=== PATIENT | male | born 1990 | race Caucasian/White ===

== ENCOUNTER 2019-03-20 11:12 | Inpatient (IN) | payer MEDICAID, OTHER ==
[~2019-03-20] VITALS: Ht 182.9 cm; Wt 81.0 kg
[2019-03-20] MEDS ORDERED: normal saline 1000ML IV soln IVB ONE (11:50)
[2019-03-20] MEDS ORDERED: magnesium oxide 400mg tablet PO ONE (11:50)
[2019-03-20] MEDS ORDERED: ondansetron/PF 4mg/2ml inj IV ONE ×2 (11:50→12:00)
[2019-03-20] MEDS ORDERED: thiamine 100mg tablet PO ONE (11:50)
[2019-03-20] MEDS ORDERED: phenobarbital inj 260 MG in normal saline 100ml IV soln 99 ML IV STA (11:50)
[2019-03-20] MEDS ORDERED: pantoprazole 40 MG vial IV ONE (12:00)
[2019-03-20] MEDS ORDERED: famotidine/PF 10 mg/ml inj IV ONE (12:00)
[2019-03-20] MEDS ORDERED: octreotide inj. 1,250 MCG in normal saline 250ml IV soln 250 ML IV ONE (12:00)
[2019-03-20] MEDS ORDERED: normal saline 1000ML IV soln IV ONE (12:00)
[2019-03-20] MEDS ORDERED: NO HOME MEDS (12:02)
[2019-03-20 12:43] LABS: ALANINE AMINOTRANSFERASE 60 U/L (12-78); ALBUMIN 4.1 G/DL (3.4-5.0); ALKALINE PHOSPHATASE 46 IU/L (46-116); ANION GAP 29 (8-16); ASPARTATE AMINO TRANSFERASE 163 U/L (10-37); BILIRUBIN,TOTAL 0.8 MG/DL (0.1-1.0); BLOOD UREA NITROGEN 22 MG/DL (7-18); BUN/CREATININE RATIO 16.1 (5.4-32.0); CALCIUM 9.3 MG/DL (8.5-10.1); CHLORIDE 94 MMOL/L (99-107); CREATININE 1.37 MG/DL (0.60-1.10); ETHANOL < 0.010 GM/DL (0.0-0.010); GLUCOSE 98 MG/DL (70-104); MAGNESIUM 1.6 MG/DL (1.5-2.4); POTASSIUM 4.1 MMOL/L (3.5-5.1); SODIUM 133 MMOL/L (135-145); TOTAL PROTEIN 8.1 G/DL (6.4-8.2); eGFR 61 ML/MIN
[2019-03-20 12:48] LABS: BASOPHILS # (AUTO) 0.1 X10'3 (0-0.2); BASOPHILS % (AUTO) 0.6 % (0-1); EOSINOPHILS % (AUTO) 0 % (0-6); HEMATOCRIT 31.8 % (42.0-52.0); HEMOGLOBIN 10.7 g/dl (14.0-17.9); LYMPHOCYTES # (AUTO) 0.5 X10'3 (1.1-4.8); LYMPHOCYTES % (AUTO) 3.3 % (21-51); MEAN CORPUSCULAR HGB CONC 33.6 g/dL (33.0-36.5); MEAN CORPUSCULAR VOLUME 110.2 FL (78-98); MEAN PLATELET VOLUME 8.1 FL (7.4-10.4); MONOCYTES # (AUTO) 1.1 X10'3 (0-0.9); MONOCYTES % (AUTO) 7.4 % (2-12); NEUTROPHILS # (AUTO) 12.7 X10'3 (1.8-7.7); NEUTROPHILS % (AUTO) 88.7 % (42-75); PLATELET COUNT 196 X10'3 (140-440); RED BLOOD COUNT 2.88 X10'6 (4.70-6.10); RED CELL DISTRIBUTION WIDTH 13.9 % (11.5-14.5); WHITE BLOOD COUNT 14.3 X10'3 (4.5-11.0)
[2019-03-20 12:54] LABS: PARTIAL THROMBOPLASTIN TIME 27 SECONDS (22-32)
[2019-03-20 13:01] LABS: TOTAL CARBON DIOXIDE 9.6 MMOL/L (24-32)
[2019-03-20 13:45] LABS: ANISOCYTOSIS 1+; PLATELET ESTIMATE NORMAL
[2019-03-20 13:46] LABS: LARGE PLATELETS FEW; POLYCHROMASIA 1+
--- NOTE | 2019-03-20 14:02 | NUR ---
patient on bed awak,vss.
[2019-03-20] MEDS ORDERED: phenobarbital inj 130 MG in normal saline 100ml IV soln 99 ML IV PRN ×2 (14:20→14:30)
[2019-03-20] MEDS ORDERED: ondansetron/PF 4mg/2ml inj IV PRN (14:45)
[2019-03-20] MEDS ORDERED: morphine 2 MG/ML inj. syringe IV PRN (14:45)
[2019-03-20] MEDS ORDERED: haloperidol 5mg tablet PO PRN (14:45)
[2019-03-20] MEDS ORDERED: magnesium 2GM in 50ml NS 50 ML IV PRN (14:45)
[2019-03-20] MEDS ORDERED: acetaminophen 325mg tablet PO PRN ×2 (14:45)
[2019-03-20] MEDS ORDERED: magnesium 4gm in 100ml NS 100 ML IV PRN (14:45)
[2019-03-20] MEDS ORDERED: potassium Cl 20 mEq SR tablet PO PRN (14:45)
[2019-03-20] MEDS ORDERED: haloperidol lactate 5mg/ml inj IM PRN (14:45)
[2019-03-20] MEDS ORDERED: potassium CL 10mEq/100ml bag 100 ML IV PRN ×2 (14:45)
--- NOTE | 2019-03-20 14:53 | NUR ---
Nik/pharmacist that patient is being admitted.
[2019-03-20] MEDS: normal saline 1000ml 1,000 ML IV SCH (15:15)
[2019-03-20] MEDS ORDERED: pantoprazole 40MG/NS 100ML BAG 100 ML IV SCH (16:00)
--- NOTE | 2019-03-20 16:22 | NUR ---
Attempted to phone report, Receiving RN unavailable and will phone the ED to receive report.
--- NOTE | 2019-03-20 16:23 | NUR ---
RN from the GI lab phoned and reports the endoscopy will be completed in the morning. PCU to be updated about the plan of care.
--- NOTE | 2019-03-20 16:30 | NUR ---
Patient in room PCU 3014. I have received report from Lisa IRVIN and had the opportunity to ask questions and assume patient care.
[2019-03-20] MEDS: pantoprazole 40MG/NS 100ML BAG 100 ML IV SCH ×2 (16:33→22:00)
[2019-03-20] MEDS: LORazepam 2 mg/ml vial IV PRN ×4 (17:43→21:54)
[2019-03-20 18:00] VITALS: BP 117/65
--- NOTE | 2019-03-20 18:00 | NUR ---
Patient in room PCU 3014. I have received report from Bryanna IRVIN and had the opportunity to ask questions and assume patient care. Nurse stated that the patient has becoming increasingly confused, at this moment patient is confused of where he is stating "I'm at a cafe" and is reminded to not pull on IVs.
--- NOTE | 2019-03-20 18:29 | NUR ---
Problems reprioritized. Patient report given, questions answered & plan of care reviewed with Daxa IRVIN.
[2019-03-20 22:00] VITALS: BP 105/52
--- NOTE | 2019-03-20 23:12 | NUR ---
RESTRAINTS Patient became increasingly agitated and confused at 1900, pulled out all IVs, but was able to calm the patient down to have him stay in bed; MD Bowling notified and sitter order obtained. At 2014 patient had escalated to pushing, kicking, and trying to run out of the room, was not able to talk him down due to more confusion stating "you're in my house, I need to go see my aunt"; Dash was notified and restraints order was obtained. Ativan was given twice and Haldol PO once before patient was calm. IV medication (Sandostatin, Normal saline, and Protonix) was held till patient was calm and able to put in new IVs, restarted at 2200. Will continue to monitor patient.
[2019-03-21] VITALS (15 sets, daily range): BP systolic 89–138; BP diastolic 41–90
[2019-03-21] MEDS: pantoprazole 40MG/NS 100ML BAG 100 ML IV SCH ×2 (01:23→09:02)
[2019-03-21] MEDS: normal saline 1000ml 1,000 ML IV SCH ×3 (01:24→20:43)
--- NOTE | 2019-03-21 05:31 | NUR ---
Patient is still on 3 point restraints, have been checked every two hours, but patient is still confused and wanting to grab and pull on anything he can get his hands on. Very sensitive to touch. Brown/Red stool on my shift. Condom Cath has been placed due to his confusion. NPO all night. Will continue to monitor.
--- NOTE | 2019-03-21 05:58 | NUR ---
Medication Reconciliation Needs to be done. Patient at this time too confused.
[2019-03-21] MEDS: LORazepam 2 mg/ml vial IV PRN ×5 (06:13→23:34)
[2019-03-21] MEDS ORDERED: fentaNYL/PF 50MCG/1 ML 2ML syringe ONE (06:15)
[2019-03-21] MEDS ORDERED: LIDOcaine Viscous 15ml cup ONE (06:15)
[2019-03-21] MEDS ORDERED: MIDAZolam 5mg/5ml vial ONE (06:15)
--- NOTE | 2019-03-21 06:43 | NUR ---
Problems reprioritized. Patient report given, questions answered & plan of care reviewed with Edwina IRVIN.
--- NOTE | 2019-03-21 06:51 | NUR ---
Page to Azeem PURVIS regarding AM lab result: Reji Oreilly: AM lab will be rechecked as Lab believes the results wrong due to dilution. Pt. is currently at endoscopy. Lab will be called for a redraw when he returns to the nursing floor. H/H 6.4/18.6. will be double checked.
--- NOTE | 2019-03-21 06:52 | NUR ---
Patient in room PCU 3014. I have received report from Daxa IRVIN and had the opportunity to ask questions and assume patient care.
[2019-03-21 07:34] LABS: BASOPHILS % (AUTO) 0.6 % (0-1); EOSINOPHILS # (AUTO) 0.1 X10'3 (0-0.9); EOSINOPHILS % (AUTO) 1.8 % (0-6); LYMPHOCYTES # (AUTO) 0.4 X10'3 (1.1-4.8); MEAN CORPUSCULAR HEMOGLOBIN 40.3 PG (27.0-31.0); MEAN CORPUSCULAR VOLUME 110.3 FL (78-98); MEAN PLATELET VOLUME 7.5 FL (7.4-10.4); MONOCYTES # (AUTO) 0.7 X10'3 (0-0.9); MONOCYTES % (AUTO) 12.5 % (2-12); NEUTROPHILS # (AUTO) 4.2 X10'3 (1.8-7.7); NEUTROPHILS % (AUTO) 77.1 % (42-75); PLATELET COUNT 137 X10'3 (140-440); RED BLOOD COUNT 1.66 X10'6 (4.70-6.10); RED CELL DISTRIBUTION WIDTH 13.8 % (11.5-14.5); WHITE BLOOD COUNT 5.4 X10'3 (4.5-11.0)
[2019-03-21 07:55] LABS: ALANINE AMINOTRANSFERASE 40 U/L (12-78); ALBUMIN 2.8 G/DL (3.4-5.0); ALKALINE PHOSPHATASE 29 IU/L (46-116); ANION GAP 12 (8-16); ASPARTATE AMINO TRANSFERASE 128 U/L (10-37); BILIRUBIN,TOTAL 0.5 MG/DL (0.1-1.0); BLOOD UREA NITROGEN 17 MG/DL (7-18); BUN/CREATININE RATIO 19.5 (5.4-32.0); CHLORIDE 104 MMOL/L (99-107); CREATININE 0.87 MG/DL (0.60-1.10); GLUCOSE 109 MG/DL (70-104); MAGNESIUM 1.6 MG/DL (1.5-2.4); SODIUM 139 MMOL/L (135-145); TOTAL CARBON DIOXIDE 23.1 MMOL/L (24-32); TOTAL PROTEIN 5.7 G/DL (6.4-8.2); eGFR > 90 ML/MIN
[2019-03-21] MEDS: K and/or MAG REPLACEMENT MC SCH ×2 (08:00→10:19)
[2019-03-21 08:06] LABS: HEMATOCRIT 18.3 % (42.0-52.0); HEMOGLOBIN 6.7 g/dl (14.0-17.9)
--- NOTE | 2019-03-21 08:14 | NUR ---
Critical H/H Azeem PURVIS PAGER ID: [phone] MESSAGE: Reji Denilson: [id number] Critical Labs H/H 6.7/18.3 This is the re-check Thank You Edwina IRVIN [phone]
[2019-03-21 08:24] LABS: MEAN CORPUSCULAR HGB CONC 34.5 g/dL (33.0-36.5)
[2019-03-21] MEDS: atenolol 25mg tablet PO SCH (10:24)
--- NOTE | 2019-03-21 11:38 | NUR ---
Protonix and Sandostatin IV: are not compatable for Y port administration. Will continue after Blood Transfusion completes.
[2019-03-21 14:14] LABS: HEMATOCRIT 22.7 % (42.0-52.0); HEMOGLOBIN 7.9 g/dl (14.0-17.9); MEAN CORPUSCULAR HEMOGLOBIN 36.2 PG (27.0-31.0); MEAN CORPUSCULAR HGB CONC 34.9 g/dL (33.0-36.5); MEAN CORPUSCULAR VOLUME 103.8 FL (78-98); MEAN PLATELET VOLUME 7.7 FL (7.4-10.4); PLATELET COUNT 148 X10'3 (140-440); RED BLOOD COUNT 2.19 X10'6 (4.70-6.10); RED CELL DISTRIBUTION WIDTH 16.2 % (11.5-14.5)
[2019-03-21] MEDS: MVI, adult No.4 with vit. K 10 ML in dextrose 5% water 500ml 500 ML IV SCH ×2 (17:19)
[2019-03-21] MEDS: thiamine inj. 100 MG, folic acid inj. 2 MG in normal saline 100ml IV soln 100 ML IV SCH (17:35)
--- NOTE | 2019-03-21 17:55 | NUR ---
Pt is alert and cooperative with nursing, he has some confusion but is asking for assistance appropriately. Skin is warm and moist, slight tremor is detected, Banana Bag is started 174. IV Ativan 2mg for restlessness, Sitter at bedside, restraints are released at 1400. Voids to urinal and ambulates to bathroom with assistance.
--- NOTE | 2019-03-21 18:00 | NUR ---
Patient in room PCU 3014. I have received report from Edwina IRVIN and had the opportunity to ask questions and assume patient care.
--- NOTE | 2019-03-21 18:26 | NUR ---
Problems reprioritized. Patient report given, questions answered & plan of care reviewed with Daxa IRVIN .
[2019-03-21] MEDS: pantoprazole 40mg Tablet.DR PO SCH (19:07)
[2019-03-21] MEDS: nystatin/triamcinolone cream 15gm TP SCH (20:00)
[2019-03-22 02:00] VITALS: BP 103/73
[2019-03-22] MEDS: LORazepam 2 mg/ml vial IV PRN ×2 (02:19→13:17)
--- NOTE | 2019-03-22 04:37 | NUR ---
END NOC NOTE Patient has been in and out of confusion tonight but has been more reasonable than the previous night. Patient has been able to tell me when he feels agitated and needing Ativan. Patient's confusion has been more childlike tonight by hiding under the covers and acting shy; when patient is alert he knows he is in the hospital and why he is here. Has not attempted to pull any IVs tonight, has voiced he would like to walk around the unit at some point, able to ambulate to the bathroom, and able to voice his needs this shift. Will continue to monitor.
[2019-03-22 05:40] LABS: BASOPHILS % (AUTO) 0.4 % (0-1); EOSINOPHILS # (AUTO) 0.1 X10'3 (0-0.9); HEMOGLOBIN 7.6 g/dl (14.0-17.9); LYMPHOCYTES # (AUTO) 0.6 X10'3 (1.1-4.8); LYMPHOCYTES % (AUTO) 7.1 % (21-51); MEAN CORPUSCULAR HEMOGLOBIN 36.9 PG (27.0-31.0); MEAN CORPUSCULAR HGB CONC 35.2 g/dL (33.0-36.5); MEAN CORPUSCULAR VOLUME 104.8 FL (78-98); MEAN PLATELET VOLUME 7.6 FL (7.4-10.4); NEUTROPHILS # (AUTO) 6.1 X10'3 (1.8-7.7); NEUTROPHILS % (AUTO) 78.5 % (42-75); PLATELET COUNT 152 X10'3 (140-440); RED BLOOD COUNT 2.05 X10'6 (4.70-6.10); RED CELL DISTRIBUTION WIDTH 16.5 % (11.5-14.5); WHITE BLOOD COUNT 7.8 X10'3 (4.5-11.0)
[2019-03-22 05:47] LABS: HEMATOCRIT 21.5 % (42.0-52.0)
--- NOTE | 2019-03-22 05:52 | NUR ---
CRITICAL HEMATOCRIT HCT 21.5 MD Bowling notified and stated to notified daytime provider. Will continue to monitor.
[2019-03-22 06:00] VITALS: BP 132/59
--- NOTE | 2019-03-22 06:00 | NUR ---
Patient in room PCU 3014. I have received report from Tram IRVIN and had the opportunity to ask questions and assume patient care.
[2019-03-22 06:13] LABS: ALANINE AMINOTRANSFERASE 35 U/L (12-78); ALBUMIN 2.8 G/DL (3.4-5.0); ALBUMIN/GLOBULIN RATIO 0.9 (1.1-1.5); ALKALINE PHOSPHATASE 41 IU/L (46-116); ANION GAP 10 (8-16); ASPARTATE AMINO TRANSFERASE 90 U/L (10-37); BILIRUBIN,TOTAL 0.5 MG/DL (0.1-1.0); BLOOD UREA NITROGEN 6 MG/DL (7-18); BUN/CREATININE RATIO 8.6 (5.4-32.0); CHLORIDE 102 MMOL/L (99-107); GLUCOSE 97 MG/DL (70-104); MAGNESIUM 1.4 MG/DL (1.5-2.4); POTASSIUM 3.2 MMOL/L (3.5-5.1); SODIUM 138 MMOL/L (135-145); TOTAL CARBON DIOXIDE 25.9 MMOL/L (24-32); TOTAL PROTEIN 5.8 G/DL (6.4-8.2); eGFR > 90 ML/MIN
--- NOTE | 2019-03-22 06:42 | NUR ---
Problems reprioritized. Patient report given, questions answered & plan of care reviewed with Isela IRVIN. Addendum: 03/22/19 at 0644 by Tram Ramírez RN with Nusrat IRVIN
--- NOTE | 2019-03-22 07:07 | NUR ---
PAGER ID: [phone] MESSAGE: [id number] Wan Oreilly. Lab today HGB/HCT [place] [id number]
[2019-03-22] MEDS: potassium Cl 20 mEq SR tablet PO PRN ×3 (07:43→19:06)
[2019-03-22] MEDS: pantoprazole 40mg Tablet.DR PO SCH ×2 (07:43→19:05)
[2019-03-22] MEDS: MVI, adult No.4 with vit. K 10 ML in dextrose 5% water 500ml 500 ML IV SCH ×2 (07:43)
[2019-03-22] MEDS: thiamine inj. 100 MG, folic acid inj. 2 MG in normal saline 100ml IV soln 100 ML IV SCH (07:43)
[2019-03-22] MEDS: magnesium Cl slow-release 64mg tablet PO PRN ×2 (07:44→19:06)
[2019-03-22] MEDS: atenolol 25mg tablet PO SCH (07:44)
[2019-03-22] MEDS: nystatin/triamcinolone cream 15gm TP SCH ×2 (08:00→19:06)
[2019-03-22 11:00] VITALS: BP 113/72
[2019-03-22] MEDS ORDERED: LORazepam 1 MG tablet PO PRN (14:45)
[2019-03-22 15:00] VITALS: BP 118/73
[2019-03-22 15:33] LABS: HEMOGLOBIN 7.6 g/dl (14.0-17.9); MEAN CORPUSCULAR HEMOGLOBIN 36.1 PG (27.0-31.0); MEAN CORPUSCULAR HGB CONC 34.7 g/dL (33.0-36.5); PLATELET COUNT 172 X10'3 (140-440); RED BLOOD COUNT 2.11 X10'6 (4.70-6.10); RED CELL DISTRIBUTION WIDTH 16.4 % (11.5-14.5); WHITE BLOOD COUNT 7.2 X10'3 (4.5-11.0)
[2019-03-22 15:40] LABS: HEMATOCRIT 21.9 % (42.0-52.0)
[2019-03-22] MEDS: HYDROcodone/acetaminophen 5mg/325mg tablet PO PRN (16:11)
[2019-03-22 18:00] VITALS: BP 114/72
--- NOTE | 2019-03-22 18:30 | NUR ---
Problems reprioritized. Patient report given, questions answered & plan of care reviewed with Tram IRVIN.
[2019-03-22 22:00] VITALS: BP 136/88
[2019-03-22] MEDS ORDERED: Melatonin 3mg tablet PO ONE (23:35)
[2019-03-23] MEDS: LORazepam 2 mg/ml vial IV PRN ×2 (01:42→07:56)
[2019-03-23 02:00] VITALS: BP 138/77
--- NOTE | 2019-03-23 04:27 | NUR ---
END NOC NOTE Patient has been very well aware, alert, and oriented most of the shift. When he started to seem to fixate on discharge and having all the information before giving home he would mention that he was agitated and anxious. Ativan 1mg was given twice tonight, an hour apart, for his anxiety at bedtime after being spooked by his roommate in [address] and being moved to 3023A. No longer needs a sitter and ambulates well independently, will continue to monitor.
--- NOTE | 2019-03-23 05:42 | NUR ---
Patient in room PCU 3023. I have received report from Nusrat IRVIN and had the opportunity to ask questions and assume patient care. Addendum: 03/23/19 at 0543 by Tram Ramírez RN time for 03/22/19 at 1800
[2019-03-23 06:00] VITALS: BP 110/60
--- NOTE | 2019-03-23 06:41 | NUR ---
Patient in room PCU 3023. I have received report from Tram IRVIN and had the opportunity to ask questions and assume patient care.
--- NOTE | 2019-03-23 07:02 | NUR ---
Problems reprioritized. Patient report given, questions answered & plan of care reviewed with Davidson IRVIN.
[2019-03-23 07:17] LABS: BASOPHILS % (AUTO) 0.4 % (0-1); EOSINOPHILS # (AUTO) 0.1 X10'3 (0-0.9); EOSINOPHILS % (AUTO) 1.7 % (0-6); HEMATOCRIT 23.2 % (42.0-52.0); HEMOGLOBIN 8.1 g/dl (14.0-17.9); LYMPHOCYTES # (AUTO) 0.7 X10'3 (1.1-4.8); MEAN CORPUSCULAR HEMOGLOBIN 36.8 PG (27.0-31.0); MEAN CORPUSCULAR HGB CONC 35.1 g/dL (33.0-36.5); MEAN CORPUSCULAR VOLUME 104.8 FL (78-98); MEAN PLATELET VOLUME 7.1 FL (7.4-10.4); MONOCYTES % (AUTO) 17.2 % (2-12); NEUTROPHILS # (AUTO) 4.2 X10'3 (1.8-7.7); NEUTROPHILS % (AUTO) 68.7 % (42-75); PLATELET COUNT 219 X10'3 (140-440); RED BLOOD COUNT 2.21 X10'6 (4.70-6.10); RED CELL DISTRIBUTION WIDTH 16.7 % (11.5-14.5); WHITE BLOOD COUNT 6.1 X10'3 (4.5-11.0)
[2019-03-23] MEDS: pantoprazole 40mg Tablet.DR PO SCH (07:52)
[2019-03-23] MEDS: atenolol 25mg tablet PO SCH (07:52)
[2019-03-23] MEDS ORDERED: multivitamins, therapeutics tablet PO SCH (08:00)
[2019-03-23] MEDS ORDERED: folic acid 1mg tablet PO SCH (08:00)
[2019-03-23] MEDS ORDERED: thiamine 100mg tablet PO SCH (08:00)
[2019-03-23 09:03] LABS: ALANINE AMINOTRANSFERASE 35 U/L (12-78); ALBUMIN/GLOBULIN RATIO 0.8 (1.1-1.5); ALKALINE PHOSPHATASE 45 IU/L (46-116); ANION GAP 11 (8-16); ASPARTATE AMINO TRANSFERASE 79 U/L (10-37); BILIRUBIN,TOTAL 0.3 MG/DL (0.1-1.0); BLOOD UREA NITROGEN 5 MG/DL (7-18); BUN/CREATININE RATIO 6.3 (5.4-32.0); CALCIUM 9.3 MG/DL (8.5-10.1); CHLORIDE 105 MMOL/L (99-107); CREATININE 0.79 MG/DL (0.60-1.10); GLUCOSE 109 MG/DL (70-104); MAGNESIUM 1.8 MG/DL (1.5-2.4); POTASSIUM 3.6 MMOL/L (3.5-5.1); SODIUM 142 MMOL/L (135-145); TOTAL CARBON DIOXIDE 26.4 MMOL/L (24-32); TOTAL PROTEIN 6.7 G/DL (6.4-8.2); eGFR > 90 ML/MIN
--- NOTE | 2019-03-23 09:12 | NUR ---
received report from john Catherine
[2019-03-23] MEDS: K and/or MAG REPLACEMENT MC SCH (09:13)
--- NOTE | 2019-03-23 09:15 | NUR ---
Patient report given, questions answered & plan of care reviewed with Mora IRVIN. Patient stable at time of transfer of care.
[2019-03-23] MEDS: nystatin/triamcinolone cream 15gm TP SCH (10:01)
[2019-03-23] MEDS: HYDROcodone/acetaminophen 5mg/325mg tablet PO PRN (10:04)
--- NOTE | 2019-03-23 10:33 | NUR ---
Orientee documentation: I have reviewed and agree with all interventions, assessments performed and documented by Marycarmen IRVIN. Orientee Medication Administration: For this medication-pass time frame, all medication were reviewed, dispensed, administered and documented per hospital policy by Marycarmen IRVIN.
[2019-03-23] MEDS ORDERED: MULT-1179 PO (12:56)
[2019-03-23] MEDS ORDERED: thiamine tablet PO (12:56)
[2019-03-23] MEDS ORDERED: FOLI1TAB16 PO (12:56)
[2019-03-23] MEDS ORDERED: PANT40TA4 PO (12:56)
[2019-03-23 13:15] LABS: TOTAL CELLS COUNTED 100
[2019-03-23 13:17] LABS: ANISOCYTOSIS 1+; PLATELET ESTIMATE NORMAL; POLYCHROMASIA 1+
--- NOTE | 2019-03-23 13:18 | NUR ---
PT D/C WITH INSTRUCTIONS, UNDERSTANDING OF INSTRUCTIONS AND W/ALL BELONGINGS WALKING OUT TO PRIVATE VEHICLE TO GO HOME AND F/U W/PCP
[2019-03-24] MEDS ORDERED: LORazepam 1 MG tablet PO PRN (14:45)
[2019-03-24] MEDS ORDERED: LORazepam 2 mg/ml vial IV PRN (14:45)
[2019-03-25 12:05] LABS: OCCULT BLOOD STOOL POSITIVE (Neg)
== END 2019-03-23 13:15 | disposition home or self-care (01) | DRG 242 ==
LOC: ER 11:14 → ED HOLD 15:02 → PCU 3S 17:11
PROVIDERS: ADMIT Internal Medicine; ATTEND Hospitalist
PROC: 30233N1 Transfusion of Nonautologous Red Blood Cells into Peripheral Vein, Percutaneous Approach (ICD-10-PCS; principal; 2019-03-21)
PROC: 0DJ08ZZ Inspection of Upper Intestinal Tract, Via Natural or Artificial Opening Endoscopic (ICD-10-PCS; 2019-03-21)
DX: K22.6 Gastro-esophageal laceration-hemorrhage syndrome (principal); R65.11 Systemic inflammatory response syndrome (SIRS) of non-infectious origin with acute organ dysfunction; N17.0 Acute kidney failure with tubular necrosis; E87.4 Mixed disorder of acid-base balance; E87.1 Hypo-osmolality and hyponatremia; D62 Acute posthemorrhagic anemia; Z60.2 Problems related to living alone; F10.229 Alcohol dependence with intoxication, unspecified; R21 Rash and other nonspecific skin eruption; F10.239 Alcohol dependence with withdrawal, unspecified; K29.20 Alcoholic gastritis without bleeding; D72.829 Elevated white blood cell count, unspecified; F41.9 Anxiety disorder, unspecified; Z87.19 Personal history of other diseases of the digestive system; Z79.899 Other long term (current) drug therapy
CPT/HCPCS: 36415; 43235; 71045; 80053; 80320; 82272; 82948; 83605; 83735; 83930; 84484; 85025; 85027; 85610; 85730; 86885; 86900; 86901; 86920; 87081; 93005; 96365; 96366; 96368; 96375; 99152; 99285; A4620; C9113; G0378; J1630; J2060; J2250; J2270; J2354; J2405; J2560; J3010; J3411; J3490; J7030; J7040; J7050; J7060; J7999; P9016

== ENCOUNTER 2019-04-19 08:21 | Emergency (ER) | payer MEDICAID ==
[~2019-04-19] VITALS: Ht 182.9 cm; Wt 89.0 kg
[~2019-04-19 08:21] MED LIST: FOLI1TAB16 PO; MULT-1179 PO; PANT40TA4 PO; thiamine tablet PO
[2019-04-19 08:25] VITALS: BP 146/79
[2019-04-19] MEDS ORDERED: fluconazole 150mg tablet PO ONE (08:45)
[2019-04-19] MEDS ORDERED: MYCOL15O TP (08:52)
== END 2019-04-19 09:21 | disposition home or self-care (01) ==
LOC: ER 08:22
DX: B35.4 Tinea corporis (principal); Z79.899 Other long term (current) drug therapy
CPT/HCPCS: 99283

== ENCOUNTER 2019-12-12 12:23 | Inpatient (IN) | payer MEDICAID ==
[~2019-12-12] VITALS: Ht 188 cm; Wt 84.1 kg
[~2019-12-12 12:23] MED LIST changes: +MYCOL15O TP
[2019-12-12] MEDS ORDERED: normal saline 1000ML IV soln IV ONE (12:35)
[2019-12-12] MEDS ORDERED: LORazepam 2 mg/ml vial IV ONE (12:45)
[2019-12-12] MEDS ORDERED: ondansetron/PF 4mg/2ml inj IV ONE ×2 (12:50→15:20)
[2019-12-12 12:56] LABS: BASOPHILS % (AUTO) 0.2 % (0-1); EOSINOPHILS % (AUTO) 0 % (0-6); HEMATOCRIT 31.5 % (42.0-52.0); HEMOGLOBIN 9.1 g/dl (14.0-17.9); LYMPHOCYTES # (AUTO) 0.9 X10'3 (1.1-4.8); LYMPHOCYTES % (AUTO) 6.9 % (21-51); MEAN CORPUSCULAR HEMOGLOBIN 23.8 PG (27.0-31.0); MEAN CORPUSCULAR HGB CONC 28.9 g/dL (33.0-36.5); MEAN CORPUSCULAR VOLUME 82.4 FL (78-98); MEAN PLATELET VOLUME 7.4 FL (7.4-10.4); MONOCYTES # (AUTO) 1.6 X10'3 (0-0.9); MONOCYTES % (AUTO) 12.2 % (2-12); NEUTROPHILS # (AUTO) 10.5 X10'3 (1.8-7.7); NEUTROPHILS % (AUTO) 80.7 % (42-75); PLATELET COUNT 183 X10'3 (140-440); RED BLOOD COUNT 3.83 X10'6 (4.70-6.10); RED CELL DISTRIBUTION WIDTH 25.1 % (11.5-14.5)
[2019-12-12 13:10] LABS: PARTIAL THROMBOPLASTIN TIME 33 SECONDS (22-32)
[2019-12-12 13:12] LABS: ALANINE AMINOTRANSFERASE 114 U/L (12-78); ALBUMIN 4.7 G/DL (3.4-5.0); ALBUMIN/GLOBULIN RATIO 0.9 (1.1-1.5); ALKALINE PHOSPHATASE 86 IU/L (46-116); ANION GAP 38 (8-16); ASPARTATE AMINO TRANSFERASE 212 U/L (10-37); BLOOD UREA NITROGEN 13 MG/DL (7-18); BUN/CREATININE RATIO 5.9 (5.4-32.0); CHLORIDE 89 MMOL/L (99-107); CREATININE 2.19 MG/DL (0.60-1.10); GLUCOSE 163 MG/DL (70-104); MAGNESIUM 1.9 MG/DL (1.5-2.4); POTASSIUM 4.3 MMOL/L (3.5-5.1); SODIUM 135 MMOL/L (135-145); eGFR 36 ML/MIN
[2019-12-12 13:14] LABS: TOTAL CARBON DIOXIDE 7.9 MMOL/L (24-32)
[2019-12-12 13:17] LABS: PLATELET ESTIMATE NORMAL; TOTAL CELLS COUNTED 100
[2019-12-12 13:19] LABS: ANISOCYTOSIS 3+; HYPOCHROMASIA 1+; POLYCHROMASIA 1+; STOMATOCYTES 1+
[2019-12-12] MEDS ORDERED: morphine 4 MG/ML inj SYRINge IV ONE (13:55)
[2019-12-12 14:04] LABS: ETHANOL < 0.010 GM/DL (0.0-0.010)
[2019-12-12 14:20] LABS: CLARITY,URINE CLEAR (Clear); COLOR,URINE YELLOW (Yellow); GLUCOSE, URINE NEGATIVE (Neg); KETONES,URINE >=80 mg/dl (Neg); LEUKOCYTE ESTERASE ,URINE NEGATIVE (Neg); NITRITES, URINE NEGATIVE (Neg); OCCULT BLOOD,URINE TRACE-INTACT (Neg); PROTEIN,URINE 100 mg/dl (Neg); UROBILINOGEN,URINE 0.2 E.U/dL (0.2-1.0)
[2019-12-12 14:21] LABS: ABG BASE EXCESS -18.9 mmol/L (-2.0-2.0); ABG HCO3 6.5 mmol/L (22.0-26.0); ABG OXYGEN SATURATION 97.5 % (94-97); ABG PCO2 (T) 15.5 mmHg (35.0-48.0); ABG PO2 (T) 120.1 mmHg (75.0-100.0); ALLEN'S TEST POSITIVE; FCOHb 0.8 % (0.0-3.9); FMetHb 0.5 % (0.0-1.5); FO2Hb 96.2 % (94-97); TOTAL HEMOGLOBIN 8.2 G/dl (14.0-18.0)
[2019-12-12 14:21] LABS: UA COLLECTION TYPE CLN CATCH MIDSTREAM
[2019-12-12 14:26] LABS: BACTERIA,URINE NONE SEEN /HPF (Neg); MUCUS STRANDS MODERATE /LPF (Neg); RBC,URINE 0-2 /HPF (0-2); SQUAMOUS EPITHELIAL CELL,UR FEW /LPF (FEW); WBC,URINE 0-4 /HPF (0-4)
[2019-12-12 14:27] LABS: COARSE GRANULAR CAST 0-3 /LPF (NEGATIVE); HYALINE CASTS >30 /LPF (NEGATIVE)
[2019-12-12 14:37] LABS: URINE AMPHETAMINE SCREEN NEGATIVE (Neg); URINE BARBITUATE SCREEN NEGATIVE (Neg); URINE BENZODIAZEPINES SCREEN NEGATIVE (Neg); URINE CANNABINOID SCREEN NEGATIVE (Neg); URINE COCAINE SCREEN NEGATIVE (Neg); URINE METHADONE SCREEN NEGATIVE (Neg); URINE OPIATE SCREEN NEGATIVE (Neg); URINE PHENCYCLIDINE SCREEN NEGATIVE (Neg)
[2019-12-12] MEDS ORDERED: magnesium hydroxide 30ml (MOM) UD suspension PO PRN (15:10)
[2019-12-12] MEDS ORDERED: dicyclomine 10 MG capsule PO PRN (15:10)
[2019-12-12] MEDS ORDERED: potassium Cl 20 mEq SR tablet PO PRN (15:10)
[2019-12-12] MEDS ORDERED: magnesium 2GM in 50ml NS 50 ML IV PRN (15:10)
[2019-12-12] MEDS ORDERED: dextrose 50%-water 50ml dispensing syringe IV PRN (15:10)
[2019-12-12] MEDS ORDERED: loperamide 2mg capsule PO PRN (15:10)
[2019-12-12] MEDS ORDERED: acetaminophen 325mg tablet PO PRN ×2 (15:10)
[2019-12-12] MEDS ORDERED: morphine 2 MG/ML inj. syringe IV PRN (15:10)
[2019-12-12] MEDS ORDERED: ondansetron/PF 4mg/2ml inj IV PRN (15:10)
[2019-12-12] MEDS ORDERED: potassium CL 10mEq/100ml bag 100 ML IV PRN ×2 (15:10)
[2019-12-12] MEDS ORDERED: mag hydrox/Alum hydrox/simeth 30ml oral suspension PO PRN (15:10)
[2019-12-12] MEDS ORDERED: magnesium 4gm in 100ml NS 100 ML IV PRN (15:10)
[2019-12-12] MEDS ORDERED: metoclopramide 5 mg/ml inj IV ONE (15:20)
[2019-12-12] MEDS ORDERED: NO HOME MEDS (15:41)
[2019-12-12] MEDS: normal saline 1000ml 1,000 ML IV SCH ×2 (15:47→21:50)
[2019-12-12] MEDS: LORazepam 2 mg/ml vial IV PRN ×6 (15:55→23:17)
--- NOTE | 2019-12-12 16:16 | NUR ---
ATTEMPTED TO CALL REPORT. RN BUSY AND WILL CALL BACK
[2019-12-12 16:38] LABS: LIPASE 2023 U/L (73-393)
--- NOTE | 2019-12-12 16:47 | NUR ---
Patient in room ED 3 will be admitted to PCU 3023B. I have received report from Pacheco IRVIN and had the opportunity to ask questions and assume patient care.
[2019-12-12 17:00] VITALS: BP 137/81
--- NOTE | 2019-12-12 17:25 | NUR ---
PAGER ID: [phone] MESSAGE: [id number] Julio César Oreilly: JUNIOR On admission pt HR 160 SVT, pt was ambulating to bathroom and would not wait, returned back to bed, administered 2 mg ativan, HR return to 100. Thanks Evin
[2019-12-12 18:00] VITALS: BP 141/88
--- NOTE | 2019-12-12 18:30 | NUR ---
Patient in room PCU 3023. I have received report from BRANDEE Rutledge and had the opportunity to ask questions and assume patient care.
--- NOTE | 2019-12-12 18:33 | NUR ---
Problems reprioritized. Patient report given, questions answered & plan of care reviewed with Xiao IRVIN.
--- NOTE | 2019-12-12 18:45 | NUR ---
patient on a bed and bed alarm not working. Patient keeps wandering, confused from withdrawals. Finding new bed now
[2019-12-12] MEDS: K and/or MAG REPLACEMENT MC SCH (20:00)
[2019-12-12] MEDS: heparin, porcine 5000 units/ml vial SQ SCH (20:07)
[2019-12-12] MEDS ORDERED: temazepam 15mg capsule PO PRN (21:00)
[2019-12-12 22:00] VITALS: BP 122/88
--- NOTE | 2019-12-12 22:57 | NUR ---
Unable to DART patient. He's too confused from alcohol withdrawal. Knows his name but not where he's at or what he's here for.
[2019-12-13] VITALS (13 sets, daily range): BP systolic 100–139; BP diastolic 69–94
[2019-12-13] MEDS: LORazepam 2 mg/ml vial IV PRN ×7 (00:18→20:13)
[2019-12-13 03:03] LABS: BASOPHILS % (AUTO) 0.3 % (0-1); EOSINOPHILS % (AUTO) 0.1 % (0-6); HEMATOCRIT 22.2 % (42.0-52.0); LYMPHOCYTES # (AUTO) 0.6 X10'3 (1.1-4.8); LYMPHOCYTES % (AUTO) 10.1 % (21-51); MEAN CORPUSCULAR HEMOGLOBIN 24.4 PG (27.0-31.0); MEAN CORPUSCULAR HGB CONC 29.9 g/dL (33.0-36.5); MEAN CORPUSCULAR VOLUME 81.5 FL (78-98); MEAN PLATELET VOLUME 7.4 FL (7.4-10.4); MONOCYTES # (AUTO) 0.9 X10'3 (0-0.9); MONOCYTES % (AUTO) 14.7 % (2-12); NEUTROPHILS # (AUTO) 4.4 X10'3 (1.8-7.7); NEUTROPHILS % (AUTO) 74.8 % (42-75); PLATELET COUNT 132 X10'3 (140-440); RED BLOOD COUNT 2.73 X10'6 (4.70-6.10); RED CELL DISTRIBUTION WIDTH 25.7 % (11.5-14.5); WHITE BLOOD COUNT 5.9 X10'3 (4.5-11.0)
[2019-12-13 03:17] LABS: ALANINE AMINOTRANSFERASE 71 U/L (12-78); ALBUMIN 3.5 G/DL (3.4-5.0); ALBUMIN/GLOBULIN RATIO 0.9 (1.1-1.5); ALKALINE PHOSPHATASE 53 IU/L (46-116); ANION GAP 19 (8-16); ASPARTATE AMINO TRANSFERASE 125 U/L (10-37); BILIRUBIN,TOTAL 0.6 MG/DL (0.1-1.0); BLOOD UREA NITROGEN 9 MG/DL (7-18); CALCIUM 8.7 MG/DL (8.5-10.1); CHLORIDE 100 MMOL/L (99-107); CREATININE 1.28 MG/DL (0.60-1.10); GLUCOSE 83 MG/DL (70-104); SODIUM 139 MMOL/L (135-145); TOTAL CARBON DIOXIDE 19.8 MMOL/L (24-32); TOTAL PROTEIN 7.3 G/DL (6.4-8.2); eGFR 66 ML/MIN
[2019-12-13 03:20] LABS: MAGNESIUM 1.6 MG/DL (1.5-2.4)
[2019-12-13 03:31] LABS: HEMOGLOBIN 6.7 g/dl (14.0-17.9)
[2019-12-13 04:28] LABS: ANISOCYTOSIS 3+; HYPOCHROMASIA 1+; PLATELET ESTIMATE NORMAL; POLYCHROMASIA FEW; TOTAL CELLS COUNTED 100
[2019-12-13] MEDS: normal saline 1000ml 1,000 ML IV SCH ×3 (04:30→16:26)
--- NOTE | 2019-12-13 04:51 | NUR ---
MD was notified for low Hbg of 6.7 and came immediately to the floor to sign the consent form for blood and ordered 2 units of blood. Each one to be infused in 2 hrs.
--- NOTE | 2019-12-13 05:56 | NUR ---
Blood started at 0552 once the blood reached the IV site. Baseline vitals: BP 123/82, HR 89, SpO2 100% on room air, RR 20, temp 98.9F oral
--- NOTE | 2019-12-13 06:27 | NUR ---
Patient in room PCU 3023. I have received report from BRANDEE Hagen and had the opportunity to ask questions and assume patient care. Patient asleep in bed, blood transfusion going and in no acute distress.
--- NOTE | 2019-12-13 06:27 | NUR ---
Problems reprioritized. Patient report given, questions answered & plan of care reviewed with BRANDEE Díaz.
--- NOTE | 2019-12-13 06:28 | NUR ---
Patient in room U 3023. I have received report from Xiao IRVIN and had the opportunity to ask questions and assume patient care. Patient sleeping in bed and receiving blood.
[2019-12-13] MEDS: atenolol 25mg tablet PO SCH (07:39)
[2019-12-13] MEDS: nicotine 14mg patch - 24hr TD SCH (07:42)
[2019-12-13] MEDS: pantoprazole 40 MG vial IV SCH (07:43)
[2019-12-13] MEDS: heparin, porcine 5000 units/ml vial SQ SCH ×2 (07:43→20:23)
[2019-12-13] MEDS: K and/or MAG REPLACEMENT MC SCH ×2 (08:00→20:00)
[2019-12-13] MEDS: folic acid inj. 2 MG, thiamine inj. 100 MG, MVI, adult No.4 with vit. K 10 ML in dextro... IV SCH ×4 (12:13)
--- NOTE | 2019-12-13 12:25 | NUR ---
Spoke to Dr. Macedo on the phone. The plan is to have the patient on a clear liquid diet right now, and NPO at midnight. Orders put in by Dr. Macedo.
[2019-12-13] MEDS: HYDROcodone/acetaminophen 5mg/325mg tablet PO PRN (13:16)
[2019-12-13 17:15] LABS: BASOPHILS % (AUTO) 0.6 % (0-1); EOSINOPHILS # (AUTO) 0.1 X10'3 (0-0.9); EOSINOPHILS % (AUTO) 1.1 % (0-6); HEMATOCRIT 28.7 % (42.0-52.0); LYMPHOCYTES # (AUTO) 0.9 X10'3 (1.1-4.8); LYMPHOCYTES % (AUTO) 14.9 % (21-51); MEAN CORPUSCULAR HEMOGLOBIN 25.5 PG (27.0-31.0); MEAN CORPUSCULAR HGB CONC 31.4 g/dL (33.0-36.5); MEAN CORPUSCULAR VOLUME 81.2 FL (78-98); MEAN PLATELET VOLUME 7.2 FL (7.4-10.4); MONOCYTES % (AUTO) 15.7 % (2-12); NEUTROPHILS # (AUTO) 4.2 X10'3 (1.8-7.7); NEUTROPHILS % (AUTO) 67.7 % (42-75); PLATELET COUNT 144 X10'3 (140-440); RED BLOOD COUNT 3.53 X10'6 (4.70-6.10); RED CELL DISTRIBUTION WIDTH 23.6 % (11.5-14.5); WHITE BLOOD COUNT 6.2 X10'3 (4.5-11.0)
--- NOTE | 2019-12-13 18:14 | NUR ---
Problems reprioritized. Patient report given, questions answered & plan of care reviewed with Stephenie IRVIN. Patient stable at transfer of care.
--- NOTE | 2019-12-13 18:16 | NUR ---
Orientee documentation: I have reviewed and agree with all interventions, assessments performed and documented by BRANDEE Thakkar.
--- NOTE | 2019-12-13 18:17 | NUR ---
Orientee Medication Administration: For this medication-pass time frame, all medication were reviewed, dispensed, administered and documented per hospital policy by BRANDEE Thakkar.
--- NOTE | 2019-12-13 18:27 | NUR ---
Patient in room PCU 3023. I have received report from Bre IRVIN and had the opportunity to ask questions and assume patient care.
[2019-12-13 22:22] LABS: HEMATOCRIT 27.8 % (42.0-52.0); HEMOGLOBIN 8.7 g/dl (14.0-17.9); MEAN CORPUSCULAR HEMOGLOBIN 25.6 PG (27.0-31.0); MEAN CORPUSCULAR HGB CONC 31.5 g/dL (33.0-36.5); MEAN CORPUSCULAR VOLUME 81.2 FL (78-98); MEAN PLATELET VOLUME 7.1 FL (7.4-10.4); PLATELET COUNT 142 X10'3 (140-440); RED BLOOD COUNT 3.42 X10'6 (4.70-6.10); WHITE BLOOD COUNT 5.2 X10'3 (4.5-11.0)
[2019-12-14] VITALS (16 sets, daily range): BP systolic 112–134; BP diastolic 69–88
--- NOTE | 2019-12-14 00:05 | NUR ---
Pt. found walking in room confused, disoriented, holding part of his IV tubing in his hand, bleeding. Pt. NPO as ordered, educated to rationale for this, very forgetful, asking for chips, crackers. Pt. states he saw a dog here in the hospital. Requires to be reoriented frequently, believing he is home with his father. IV Ativan admin prn f/good, short term effect.
[2019-12-14] MEDS: LORazepam 2 mg/ml vial IV PRN ×4 (00:21→10:28)
[2019-12-14] MEDS: HYDROcodone/acetaminophen 5mg/325mg tablet PO PRN ×2 (00:22→19:14)
[2019-12-14] MEDS: normal saline 1000ml 1,000 ML IV SCH ×4 (01:20→22:04)
--- NOTE | 2019-12-14 06:26 | NUR ---
Problems reprioritized. Patient report given, questions answered & plan of care reviewed with Dinorah IRVIN.
--- NOTE | 2019-12-14 06:42 | NUR ---
Patient in room PCU 3023. I have received report from Stephenie IRVIN and had the opportunity to ask questions and assume patient care. Patient awake in bed and resting. No complaints at this time. All immediate needs met.
--- NOTE | 2019-12-14 06:44 | NUR ---
Patient in room U 3023B. I have received report from Stephenie IRVIN and had the opportunity to ask questions and assume patient care. Patient sitting up in bed and all current needs met
[2019-12-14 07:43] LABS: BASOPHILS # (AUTO) 0.1 X10'3 (0-0.2); BASOPHILS % (AUTO) 1.3 % (0-1); EOSINOPHILS # (AUTO) 0.1 X10'3 (0-0.9); EOSINOPHILS % (AUTO) 2.4 % (0-6); HEMATOCRIT 29.9 % (42.0-52.0); HEMOGLOBIN 9.4 g/dl (14.0-17.9); MEAN CORPUSCULAR HEMOGLOBIN 25.3 PG (27.0-31.0); MEAN CORPUSCULAR HGB CONC 31.5 g/dL (33.0-36.5); MEAN CORPUSCULAR VOLUME 80.4 FL (78-98); MEAN PLATELET VOLUME 7.5 FL (7.4-10.4); MONOCYTES # (AUTO) 0.6 X10'3 (0-0.9); MONOCYTES % (AUTO) 11.5 % (2-12); NEUTROPHILS # (AUTO) 3.1 X10'3 (1.8-7.7); NEUTROPHILS % (AUTO) 64.8 % (42-75); PLATELET COUNT 177 X10'3 (140-440); RED BLOOD COUNT 3.72 X10'6 (4.70-6.10); RED CELL DISTRIBUTION WIDTH 24.5 % (11.5-14.5); WHITE BLOOD COUNT 4.8 X10'3 (4.5-11.0)
[2019-12-14] MEDS: folic acid inj. 2 MG, thiamine inj. 100 MG, MVI, adult No.4 with vit. K 10 ML in dextro... IV SCH ×4 (07:53)
[2019-12-14] MEDS: pantoprazole 40 MG vial IV SCH (07:54)
[2019-12-14] MEDS: K and/or MAG REPLACEMENT MC SCH ×2 (08:00→20:00)
[2019-12-14] MEDS: nicotine 14mg patch - 24hr TD SCH (08:00)
[2019-12-14] MEDS: heparin, porcine 5000 units/ml vial SQ SCH ×2 (08:05→19:14)
[2019-12-14 08:12] LABS: PLATELET ESTIMATE NORMAL; POLYCHROMASIA 1+
[2019-12-14 08:13] LABS: ANISOCYTOSIS 3+; ELLIPTOCYTES FEW; HYPOCHROMASIA 1+; SCHISTOCYTES FEW; STOMATOCYTES 1+; TARGET CELLS FEW; TEAR DROP CELLS FEW
[2019-12-14 09:13] LABS: ALANINE AMINOTRANSFERASE 60 U/L (12-78); ALBUMIN 3.2 G/DL (3.4-5.0); ALBUMIN/GLOBULIN RATIO 0.9 (1.1-1.5); ALKALINE PHOSPHATASE 57 IU/L (46-116); ASPARTATE AMINO TRANSFERASE 145 U/L (10-37); BILIRUBIN,TOTAL 0.6 MG/DL (0.1-1.0); BLOOD UREA NITROGEN 3 MG/DL (7-18); BUN/CREATININE RATIO 3.8 (5.4-32.0); CALCIUM 8.5 MG/DL (8.5-10.1); CHLORIDE 102 MMOL/L (99-107); CREATININE 0.79 MG/DL (0.60-1.10); GLUCOSE 79 MG/DL (70-104); MAGNESIUM 1.3 MG/DL (1.5-2.4); POTASSIUM 3.1 MMOL/L (3.5-5.1); TOTAL CARBON DIOXIDE 23.6 MMOL/L (24-32); TOTAL PROTEIN 6.8 G/DL (6.4-8.2); eGFR > 90 ML/MIN
[2019-12-14 09:16] LABS: ANION GAP 16 (8-16); SODIUM 142 MMOL/L (135-145)
[2019-12-14] MEDS ORDERED: LIDOcaine Viscous 15ml cup ONE (10:39)
[2019-12-14] MEDS ORDERED: fentaNYL/PF 50MCG/1 ML 2ML syringe ONE (10:39)
[2019-12-14] MEDS ORDERED: MIDAZolam 5mg/5ml vial ONE (10:39)
[2019-12-14] MEDS ORDERED: proCHLORperazine 10 MG/2 ml inj ONE (12:10)
[2019-12-14] MEDS: atenolol 25mg tablet PO SCH (14:51)
[2019-12-14] MEDS: magnesium Cl slow-release 64mg tablet PO PRN ×2 (14:51→23:27)
[2019-12-14] MEDS: potassium Cl 20 mEq SR tablet PO PRN ×3 (14:51→23:27)
[2019-12-14] MEDS ORDERED: LORazepam 2 mg/ml vial IV PRN (15:10)
[2019-12-14] MEDS ORDERED: LORazepam 1 MG tablet PO PRN (15:10)
--- NOTE | 2019-12-14 15:12 | NUR ---
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 AOx1 and confused receiving banana bag. Pt s/p failed upper endoscopy pending repeat tomorrow AM per MD note. PO 100% clear liquid first 2 meals yesterday advanced to full liquids today. Pt has no significant edema/wounds/weakness and current wt not in EMR as well as no accurate wt hx. Likely decreased PO but at this time pt does not meet minimum malnutrition criteria; will continue to monitor. Addendum: 12/14/19 at [address] Amended: Links added.
--- NOTE | 2019-12-14 18:18 | NUR ---
Problems reprioritized. Patient report given to Mendoza IRVIN, questions answered & plan of care reviewed with . Patient stable at transfer.
--- NOTE | 2019-12-14 18:18 | NUR ---
Problems reprioritized. Patient report given, questions answered & plan of care reviewed with BRANDEE Donaldson. Patient stable at transfer of care.
--- NOTE | 2019-12-14 18:20 | NUR ---
Orientee documentation: I have reviewed and agree with all interventions, assessments performed and documented by BRANDEE Katz. Orientee Medication Administration: For this medication-pass time frame, all medication were reviewed, dispensed, administered and documented per hospital policy by BRANDEE Katz.
--- NOTE | 2019-12-14 18:32 | NUR ---
Patient in room PCU 3023B. I have received report from BRANDEE DELGADILLO AND BRANDEE LOBO and had the opportunity to ask questions and assume patient care. PATIENT ASLEEP FOR BEDSIDE REPORT. NS INFUSING AT 125 ML/HR, ON ROOM AIR, AND STABLE AT THIS TIME. BENEFITTING FROM SITTER IN ROOM. WILL CONTINUE TO MONITOR CLOSELY.
--- NOTE | 2019-12-14 20:00 | NUR ---
PATIENT REFUSED 2000 BLOOD SUGAR CHECK. EDUCATED PATIENT ON IMPORTANCE OF HYPERGLYCEMIA/HYPOGLYCEMIA MANAGEMENT AND CORRELATION WITH ETOH PROTOCOL. WILL CONTINUE TO REVISIT EDUCATION TOPICS.
[2019-12-15] VITALS (18 sets, daily range): BP systolic 119–165; BP diastolic 67–126
[2019-12-15] MEDS: normal saline 1000ml 1,000 ML IV SCH (05:59)
--- NOTE | 2019-12-15 06:15 | NUR ---
Problems reprioritized. Patient report given, questions answered & plan of care reviewed with BRANDEE DELGADILLO AND BRANDEE LOBO.
[2019-12-15 06:25] LABS: BASOPHILS # (AUTO) 0.1 X10'3 (0-0.2); BASOPHILS % (AUTO) 1.1 % (0-1); EOSINOPHILS # (AUTO) 0.1 X10'3 (0-0.9); EOSINOPHILS % (AUTO) 2.4 % (0-6); HEMATOCRIT 29.9 % (42.0-52.0); HEMOGLOBIN 9.2 g/dl (14.0-17.9); LYMPHOCYTES % (AUTO) 20.6 % (21-51); MEAN CORPUSCULAR HEMOGLOBIN 25.1 PG (27.0-31.0); MEAN CORPUSCULAR HGB CONC 30.8 g/dL (33.0-36.5); MEAN CORPUSCULAR VOLUME 81.2 FL (78-98); MEAN PLATELET VOLUME 7.8 FL (7.4-10.4); MONOCYTES # (AUTO) 0.7 X10'3 (0-0.9); MONOCYTES % (AUTO) 14.7 % (2-12); NEUTROPHILS # (AUTO) 3.1 X10'3 (1.8-7.7); NEUTROPHILS % (AUTO) 61.2 % (42-75); PLATELET COUNT 237 X10'3 (140-440); RED BLOOD COUNT 3.68 X10'6 (4.70-6.10); RED CELL DISTRIBUTION WIDTH 25.3 % (11.5-14.5)
--- NOTE | 2019-12-15 06:45 | NUR ---
Patient in room U 3023. I have received report from Mendoza IRVIN and had the opportunity to ask questions and assume patient care. Patient sitting up in bed resting comfortably. In no acute distress. All immediate needs met.
--- NOTE | 2019-12-15 06:45 | NUR ---
Patient in room PCU 3023B. I have received report from Mendoza IRVIN and had the opportunity to ask questions and assume patient care. patient resting comfortably and eager to have procedure completed today. all current needs met. Patient NPO and saline locked in prep for procedure
--- NOTE | 2019-12-15 06:50 | NUR ---
Patient tripped over wheelchair in room while up to bathroom. Patient states the toe of his sock caught on the wheel. Patient did not hit his head and has no complaints of pain or discomfort. Notified Dr. Bowling of incident. no new orders at this time. Patient currently with EGD RN for procedure.
[2019-12-15 06:57] LABS: ANISOCYTOSIS 2+; PLATELET ESTIMATE NORMAL
[2019-12-15 06:58] LABS: HYPOCHROMASIA 2+
[2019-12-15 06:59] LABS: POLYCHROMASIA 1+
[2019-12-15 07:00] LABS: SPHEROCYTES 1+
[2019-12-15 07:01] LABS: ALANINE AMINOTRANSFERASE 65 U/L (12-78); ALBUMIN 3.4 G/DL (3.4-5.0); ALBUMIN/GLOBULIN RATIO 0.9 (1.1-1.5); ALKALINE PHOSPHATASE 85 IU/L (46-116); ANION GAP 10 (8-16); ASPARTATE AMINO TRANSFERASE 156 U/L (10-37); BILIRUBIN,TOTAL 0.4 MG/DL (0.1-1.0); BLOOD UREA NITROGEN 3 MG/DL (7-18); BUN/CREATININE RATIO 3.8 (5.4-32.0); CALCIUM 9.9 MG/DL (8.5-10.1); CHLORIDE 105 MMOL/L (99-107); GLUCOSE 131 MG/DL (70-104); MAGNESIUM 1.5 MG/DL (1.5-2.4); POTASSIUM 3.6 MMOL/L (3.5-5.1); SODIUM 143 MMOL/L (135-145); TOTAL CARBON DIOXIDE 27.8 MMOL/L (24-32); TOTAL PROTEIN 7.2 G/DL (6.4-8.2); eGFR > 90 ML/MIN
[2019-12-15] MEDS ORDERED: fentaNYL/PF 50MCG/1 ML 2ML syringe ONE (07:27)
[2019-12-15] MEDS ORDERED: ketamine 50 mg/ml 10ml vial ONE (07:28)
[2019-12-15] MEDS ORDERED: MIDAZolam 5mg/5ml vial ONE (07:28)
[2019-12-15] MEDS ORDERED: pantoprazole 40mg Tablet.DR PO SCH (07:30)
[2019-12-15] MEDS ORDERED: LIDOcaine 2% (20mg/ml) 5ml vial ONE (07:30)
[2019-12-15] MEDS ORDERED: propofol 10mg/ml 20ml vial IV ONE (07:30)
[2019-12-15] MEDS: nicotine 14mg patch - 24hr TD SCH (08:00)
[2019-12-15] MEDS: heparin, porcine 5000 units/ml vial SQ SCH (08:00)
[2019-12-15] MEDS: folic acid inj. 2 MG, thiamine inj. 100 MG, MVI, adult No.4 with vit. K 10 ML in dextro... IV SCH ×4 (08:00)
[2019-12-15] MEDS: K and/or MAG REPLACEMENT MC SCH (08:00)
[2019-12-15] MEDS ORDERED: THIA50TA10 PO (09:19)
[2019-12-15] MEDS ORDERED: FOLI0.8C PO (09:19)
[2019-12-15] MEDS ORDERED: PANT40TA4 PO (09:19)
[2019-12-15] MEDS ORDERED: FERR324T4 PO (09:19)
[2019-12-15] MEDS: HYDROcodone/acetaminophen 5mg/325mg tablet PO PRN (10:06)
[2019-12-15] MEDS: atenolol 25mg tablet PO SCH (10:06)
--- NOTE | 2019-12-15 12:21 | NUR ---
Patient is stable for discharge per MD orders. All discharge instructions reviewed with patient and all questions answered. New prescriptions called into [facility]. No patient medications in pharmacy. PIV discontinued with catheter intact and asymptomatic. Tele monitor discontinued. Belongings placed in belongings back and sent with patient. Patient walked down with RN to lobby to await orange picker by his father.
--- NOTE | 2019-12-15 16:41 | NUR ---
Orientee documentation: I have reviewed and agree with all interventions, assessments performed and documented by Gianna IRVIN. Orientee Medication Administration: For this medication-pass time frame, all medication were reviewed, dispensed, administered and documented per hospital policy by BRANDEE Katz.
--- NOTE | 2019-12-16 06:45 | NUR ---
Notified Dr. Bowling of patient's fall. Patient states he tripped on his nonskid sock when ambulating to bathroom. Patient states he landed on his shoulder. Denies hitting head or loss of consciousness. Patient alert and oriented x 4. No signs of bleeding or trauma. Small superficial scratch to left anterior lower leg noted. No new orders from Dr. Bowling. Educated patient on use of call light to ask for assistance when ambulating to bathroom.
[2019-12-16] MEDS ORDERED: LORazepam 2 mg/ml vial IV PRN (15:10)
[2019-12-16] MEDS ORDERED: LORazepam 1 MG tablet PO PRN (15:10)
== END 2019-12-15 12:21 | disposition home or self-care (01) | DRG 241 ==
LOC: ER 12:24 → ED HOLD 15:10 → PCU 3S 17:01
PROVIDERS: ADMIT Internal Medicine; ATTEND Internal Medicine
PROC: 30233N1 Transfusion of Nonautologous Red Blood Cells into Peripheral Vein, Percutaneous Approach (ICD-10-PCS; 2019-12-13)
PROC: 0DJ08ZZ Inspection of Upper Intestinal Tract, Via Natural or Artificial Opening Endoscopic (ICD-10-PCS; 2019-12-14)
PROC: 0DB68ZX Excision of Stomach, Via Natural or Artificial Opening Endoscopic, Diagnostic (ICD-10-PCS; principal; 2019-12-15 07:30)
DX: K29.71 Gastritis, unspecified, with bleeding (principal); K85.90 Acute pancreatitis without necrosis or infection, unspecified; F10.231 Alcohol dependence with withdrawal delirium; N17.9 Acute kidney failure, unspecified; N18.3 Chronic kidney disease, stage 3 (moderate); E87.2 Acidosis; D64.9 Anemia, unspecified; K76.0 Fatty (change of) liver, not elsewhere classified; Z60.2 Problems related to living alone; R07.89 Other chest pain; E87.6 Hypokalemia; K21.0 Gastro-esophageal reflux disease with esophagitis; Z71.41 Alcohol abuse counseling and surveillance of alcoholic
CPT/HCPCS: 36415; 36430; 36600; 43239; 71045; 76700; 80053; 80305; 80320; 81001; 82803; 82948; 83605; 83690; 83735; 84145; 84484; 85018; 85025; 85027; 85610; 85730; 86885; 86900; 86901; 86920; 87040; 87081; 93005; 97110; 97116; 97161; 97530; 99152; 99285; A4618; A4620; C9113; G0378; J0780; J1644; J2001; J2060; J2250; J2270; J2405; J2704; J2765; J3010; J3411; J3490; J7030; J7040; J7060; P9016

== ENCOUNTER 2020-01-13 10:30 | Emergency (ER) | payer MEDICAID ==
[~2020-01-13] VITALS: Ht 185.4 cm; Wt 77.3 kg
[~2020-01-13 10:30] MED LIST changes: +FERR324T4 PO; +FOLI0.8C PO; -FOLI1TAB16 PO; -MULT-1179 PO; -MYCOL15O TP; +THIA50TA10 PO; -thiamine tablet PO
[2020-01-13] MEDS ORDERED: normal saline 1000ML IV soln IV ONE (11:00)
[2020-01-13] MEDS ORDERED: pantoprazole 40 MG vial IV ONE (11:05)
[2020-01-13] MEDS ORDERED: LORazepam 2 mg/ml vial IV ONE (11:05)
[2020-01-13] MEDS ORDERED: ondansetron/PF 4mg/2ml inj IV ONE (11:05)
[2020-01-13 11:06] LABS: BASOPHILS % (AUTO) 0.6 % (0-1); EOSINOPHILS # (AUTO) 0.1 X10'3 (0-0.9); EOSINOPHILS % (AUTO) 0.7 % (0-6); HEMATOCRIT 27.7 % (42.0-52.0); HEMOGLOBIN 8.8 g/dl (14.0-17.9); LYMPHOCYTES # (AUTO) 0.8 X10'3 (1.1-4.8); LYMPHOCYTES % (AUTO) 9.6 % (21-51); MEAN CORPUSCULAR HEMOGLOBIN 26.5 PG (27.0-31.0); MEAN CORPUSCULAR HGB CONC 31.8 g/dL (33.0-36.5); MEAN CORPUSCULAR VOLUME 83.4 FL (78-98); MEAN PLATELET VOLUME 7.4 FL (7.4-10.4); MONOCYTES # (AUTO) 1.5 X10'3 (0-0.9); MONOCYTES % (AUTO) 18.9 % (2-12); NEUTROPHILS # (AUTO) 5.5 X10'3 (1.8-7.7); NEUTROPHILS % (AUTO) 70.2 % (42-75); PLATELET COUNT 308 X10'3 (140-440); RED BLOOD COUNT 3.33 X10'6 (4.70-6.10); RED CELL DISTRIBUTION WIDTH 27.5 % (11.5-14.5); WHITE BLOOD COUNT 7.9 X10'3 (4.5-11.0)
[2020-01-13 11:21] LABS: ALANINE AMINOTRANSFERASE 48 U/L (12-78); ALBUMIN 4.3 G/DL (3.4-5.0); ALBUMIN/GLOBULIN RATIO 0.9 (1.1-1.5); ALKALINE PHOSPHATASE 63 IU/L (46-116); ANION GAP 21 (8-16); ASPARTATE AMINO TRANSFERASE 110 U/L (10-37); BILIRUBIN,TOTAL 0.8 MG/DL (0.1-1.0); BLOOD UREA NITROGEN 20 MG/DL (7-18); BUN/CREATININE RATIO 15.7 (5.4-32.0); CALCIUM 9.9 MG/DL (8.5-10.1); CHLORIDE 90 MMOL/L (99-107); CREATININE 1.27 MG/DL (0.60-1.10); GLUCOSE 102 MG/DL (70-104); POTASSIUM 3.1 MMOL/L (3.5-5.1); SODIUM 129 MMOL/L (135-145); TOTAL CARBON DIOXIDE 17.8 MMOL/L (24-32); TOTAL PROTEIN 9.1 G/DL (6.4-8.2); eGFR 67 ML/MIN
[2020-01-13 11:25] LABS: D-DIMER 0.31 MG/L FEU (0-0.50)
[2020-01-13 11:27] LABS: ANISOCYTOSIS 3+; PLATELET ESTIMATE NORMAL; TOTAL CELLS COUNTED 100
[2020-01-13 11:28] LABS: HYPOCHROMASIA 1+; POLYCHROMASIA FEW; ROULEAUX 1+
[2020-01-13 11:39] LABS: ETHANOL < 0.010 GM/DL (0.0-0.010)
[2020-01-13] MEDS ORDERED: potassium Cl 20 mEq SR tablet PO STA (11:56)
[2020-01-13] MEDS ORDERED: potassium Cl 10 mEq/100mL bag IV ONE (12:00)
[2020-01-13 12:10] LABS: LIPASE 525 U/L (73-393)
[2020-01-13] MEDS ORDERED: morphine 4 MG/ML inj SYRINge IV ONE (12:25)
[2020-01-13] MEDS ORDERED: PANT-47 PO (13:01)
[2020-01-13] MEDS ORDERED: HYDR-4383 PO (13:01)
[2020-01-13] MEDS ORDERED: ONDA4TAB6 PO (13:02)
[2020-01-13 14:00] VITALS: BP 113/77
== END 2020-01-13 14:09 | disposition home or self-care (01) ==
LOC: ER 10:30
DX: K85.20 Alcohol induced acute pancreatitis without necrosis or infection (principal); E86.0 Dehydration; N28.9 Disorder of kidney and ureter, unspecified; E87.1 Hypo-osmolality and hyponatremia; E87.6 Hypokalemia; K29.20 Alcoholic gastritis without bleeding; F10.10 Alcohol abuse, uncomplicated; R07.89 Other chest pain; R11.2 Nausea with vomiting, unspecified; R42 Dizziness and giddiness; Z72.89 Other problems related to lifestyle; Z60.2 Problems related to living alone; Z79.899 Other long term (current) drug therapy; Y90.0 Blood alcohol level of less than 20 mg/100 ml
CPT/HCPCS: 36415; 71045; 74176; 76700; 80053; 80320; 83605; 83690; 83880; 84145; 84484; 85025; 85379; 86885; 86900; 86901; 87040; 93005; 96361; 96365; 96375; 99285; C9113; J2060; J2270; J2405; J3480; J7030

== ENCOUNTER 2020-02-02 06:35 | Emergency (ER) | payer MEDICAID ==
[~2020-02-02] VITALS: Ht 185.4 cm; Wt 84.1 kg
[~2020-02-02 06:35] MED LIST changes: +CHLO25CA10 PO; +HYDR-4353 PO; +MULT-25 PO; +ONDA4TAB6 PO; +folic acid tablet PO; +thiamine tablet PO
[2020-02-02] MEDS ORDERED: sucralfate 1gm/10ml UD suspension PO STA (06:49)
[2020-02-02] MEDS ORDERED: acetaminophen 325mg tablet PO STA (06:49)
[2020-02-02] MEDS ORDERED: mag hydrox/Alum hydrox/simeth 30ml oral suspension PO ONE (06:50)
[2020-02-02] MEDS ORDERED: normal saline 1000ML IV soln IV ONE (06:50)
[2020-02-02] MEDS ORDERED: LIDOcaine Viscous 15ml cup MM ONE (06:50)
[2020-02-02 07:17] LABS: BASOPHILS % (AUTO) 0.6 % (0-1); EOSINOPHILS # (AUTO) 0.1 X10'3 (0-0.9); EOSINOPHILS % (AUTO) 0.9 % (0-6); HEMATOCRIT 22.4 % (42.0-52.0); HEMOGLOBIN 7.1 g/dl (14.0-17.9); LYMPHOCYTES # (AUTO) 0.5 X10'3 (1.1-4.8); LYMPHOCYTES % (AUTO) 8.9 % (21-51); MEAN CORPUSCULAR HEMOGLOBIN 26.7 PG (27.0-31.0); MEAN CORPUSCULAR HGB CONC 31.6 g/dL (33.0-36.5); MEAN CORPUSCULAR VOLUME 84.6 FL (78-98); MEAN PLATELET VOLUME 6.5 FL (7.4-10.4); MONOCYTES # (AUTO) 0.9 X10'3 (0-0.9); MONOCYTES % (AUTO) 15.8 % (2-12); NEUTROPHILS # (AUTO) 4.2 X10'3 (1.8-7.7); NEUTROPHILS % (AUTO) 73.8 % (42-75); PLATELET COUNT 220 X10'3 (140-440); RED BLOOD COUNT 2.65 X10'6 (4.70-6.10); RED CELL DISTRIBUTION WIDTH 25.5 % (11.5-14.5); WHITE BLOOD COUNT 5.6 X10'3 (4.5-11.0)
[2020-02-02 07:42] LABS: ALANINE AMINOTRANSFERASE 15 U/L (12-78); ALBUMIN 3.1 G/DL (3.4-5.0); ALBUMIN/GLOBULIN RATIO 0.8 (1.1-1.5); ALKALINE PHOSPHATASE 72 IU/L (46-116); ANION GAP 9 (8-16); ASPARTATE AMINO TRANSFERASE 30 U/L (10-37); BILIRUBIN,TOTAL 0.2 MG/DL (0.1-1.0); BLOOD UREA NITROGEN 6 MG/DL (7-18); BUN/CREATININE RATIO 7.1 (5.4-32.0); CALCIUM 8.5 MG/DL (8.5-10.1); CHLORIDE 104 MMOL/L (99-107); CREATININE 0.84 MG/DL (0.60-1.10); GLUCOSE 107 MG/DL (70-104); SODIUM 138 MMOL/L (135-145); TOTAL CARBON DIOXIDE 24.7 MMOL/L (24-32); TOTAL PROTEIN 7.1 G/DL (6.4-8.2); eGFR > 90 ML/MIN
[2020-02-02 08:37] LABS: URINE AMPHETAMINE SCREEN NEGATIVE (Neg); URINE BARBITUATE SCREEN NEGATIVE (Neg); URINE BENZODIAZEPINES SCREEN POSITIVE (Neg); URINE CANNABINOID SCREEN NEGATIVE (Neg); URINE COCAINE SCREEN NEGATIVE (Neg); URINE METHADONE SCREEN NEGATIVE (Neg); URINE OPIATE SCREEN POSITIVE (Neg); URINE PHENCYCLIDINE SCREEN NEGATIVE (Neg)
[2020-02-02 08:42] LABS: CLARITY,URINE CLEAR (Clear); COLOR,URINE STRAW (Yellow); GLUCOSE, URINE NEGATIVE (Neg); KETONES,URINE NEGATIVE (Neg); LEUKOCYTE ESTERASE ,URINE NEGATIVE (Neg); NITRITES, URINE NEGATIVE (Neg); OCCULT BLOOD,URINE NEGATIVE (Neg); PH,URINE 6.5 (4.8-8.0); PROTEIN,URINE NEGATIVE (Neg); UROBILINOGEN,URINE 0.2 E.U/dL (0.2-1.0)
[2020-02-02 08:42] LABS: ETHANOL < 0.010 GM/DL (0.0-0.010)
[2020-02-02 08:43] LABS: UA COLLECTION TYPE URINAL
[2020-02-02 08:52] VITALS: BP 122/68
[2020-02-02 10:06] LABS: TOTAL CELLS COUNTED 100
[2020-02-02 10:07] LABS: ANISOCYTOSIS 3+; HYPOCHROMASIA 1+; PLATELET ESTIMATE NORMAL
== END 2020-02-02 09:01 | disposition home or self-care (01) ==
LOC: ER 06:35
DX: R07.89 Other chest pain (principal); R06.02 Shortness of breath; R05 Cough; F12.90 Cannabis use, unspecified, uncomplicated; F10.20 Alcohol dependence, uncomplicated; Z60.2 Problems related to living alone; Z59.0 Homelessness; Z79.899 Other long term (current) drug therapy; Y90.0 Blood alcohol level of less than 20 mg/100 ml
CPT/HCPCS: 36415; 71045; 80053; 80305; 80320; 81003; 83605; 83880; 84145; 84484; 85007; 85025; 87040; 93005; 96360; 99285; J7030

== ENCOUNTER 2020-04-03 11:20 | Inpatient (IN) | payer MEDICAID ==
[~2020-04-03] VITALS: Ht 182.9 cm; Wt 85.6 kg
[~2020-04-03 11:20] MED LIST changes: -PANT40TA4 PO; +PANT40TA54 PO
[2020-04-03] MEDS ORDERED: ibuprofen tablet 400 MG TABLET PO ONE (11:45)
[2020-04-03] MEDS ORDERED: LORazepam 2 mg/ml vial IM ONE (11:55)
[2020-04-03] MEDS ORDERED: ketorolac trometh. 30mg/ml inj. IM ONE (11:55)
[2020-04-03 12:02] LABS: HEMOGLOBIN 9.4 g/dl (14.0-17.9); MONOCYTES # (AUTO) 0.7 X10'3 (0-0.9)
[2020-04-03 12:04] LABS: BASOPHILS % (AUTO) 0.9 % (0-1); EOSINOPHILS % (AUTO) 1.1 % (0-6); HEMATOCRIT 30.6 % (42.0-52.0); LYMPHOCYTES # (AUTO) 0.8 X10'3 (1.1-4.8); LYMPHOCYTES % (AUTO) 18.2 % (21-51); MEAN CORPUSCULAR HGB CONC 30.7 g/dL (33.0-36.5); MEAN CORPUSCULAR VOLUME 81.4 FL (78-98); MEAN PLATELET VOLUME 8.3 FL (7.4-10.4); MONOCYTES % (AUTO) 16.3 % (2-12); NEUTROPHILS # (AUTO) 2.8 X10'3 (1.8-7.7); NEUTROPHILS % (AUTO) 63.5 % (42-75); PLATELET COUNT 97 X10'3 (140-440); RED BLOOD COUNT 3.76 X10'6 (4.70-6.10); RED CELL DISTRIBUTION WIDTH 28.2 % (11.5-14.5); WHITE BLOOD COUNT 4.3 X10'3 (4.5-11.0)
[2020-04-03 12:07] LABS: ALANINE AMINOTRANSFERASE 37 U/L (12-78); ALBUMIN 3.3 G/DL (3.4-5.0); ALBUMIN/GLOBULIN RATIO 0.8 (1.1-1.5); ALKALINE PHOSPHATASE 112 IU/L (46-116); ANION GAP 14 (8-16); ASPARTATE AMINO TRANSFERASE 109 U/L (10-37); BILIRUBIN,TOTAL 0.6 MG/DL (0.1-1.0); BLOOD UREA NITROGEN 6 MG/DL (7-18); BUN/CREATININE RATIO 6.7 (5.4-32.0); CALCIUM 8.2 MG/DL (8.5-10.1); CHLORIDE 102 MMOL/L (99-107); CREATININE 0.89 MG/DL (0.60-1.10); GLUCOSE 93 MG/DL (70-104); POTASSIUM 3.6 MMOL/L (3.5-5.1); SODIUM 139 MMOL/L (135-145); TOTAL CARBON DIOXIDE 22.8 MMOL/L (24-32); TOTAL PROTEIN 7.7 G/DL (6.4-8.2); eGFR > 90 ML/MIN
[2020-04-03 12:24] LABS: ANISOCYTOSIS 3+; HYPOCHROMASIA 1+; MICROCYTOSIS 1+; PLATELET ESTIMATE DECREASED
[2020-04-03 12:25] LABS: POIKILOCYTOSIS FEW; POLYCHROMASIA 1+; TARGET CELLS FEW
--- NOTE | 2020-04-03 13:06 | NUR ---
PT RESTING LAYING SUPINE, RESPIRATIONS EVEN AND UNLABORED.
[2020-04-03 14:43] LABS: URINE AMPHETAMINE SCREEN NEGATIVE (Neg); URINE BARBITUATE SCREEN NEGATIVE (Neg); URINE BENZODIAZEPINES SCREEN POSITIVE (Neg); URINE CANNABINOID SCREEN NEGATIVE (Neg); URINE COCAINE SCREEN NEGATIVE (Neg); URINE METHADONE SCREEN NEGATIVE (Neg); URINE OPIATE SCREEN NEGATIVE (Neg); URINE PHENCYCLIDINE SCREEN NEGATIVE (Neg)
[2020-04-03] MEDS: LORazepam 1 MG tablet PO PRN ×2 (14:45→20:48)
--- NOTE | 2020-04-03 14:52 | NUR ---
PT MOVED FROM BED 13 TO BED 20 REPORT RECEIVED
--- NOTE | 2020-04-03 15:26 | NUR ---
[employer] FAXED
[2020-04-03] MEDS ORDERED: acetaminophen 325mg tablet PO ONE (16:15)
--- NOTE | 2020-04-03 17:35 | NUR ---
IN BED RESTING RISE AND FALL OF CHEST NOTED
--- NOTE | 2020-04-03 18:42 | NUR ---
Patient is well oriented, laying on bed 20. Patient is focused on meeting his own needs. Patient complains of S/I
--- NOTE | 2020-04-03 18:52 | NUR ---
Patient tells this freelance copywriter he drinks "9-10 beers a day, sometimes a cocktail." Patient states his ssi has , he has been in a motel room for the past three days but he has no money and is on the street now. (Relatives had paid for the motel.) Patient denies a mental health history save for depression. Patient complains of a chronic heartburn, anxiety, and depression. Patient formulated a plan to hang himself today but instead called 911 to come to the hospital. Patient makes direct eye contact. He speaks in a quiet voice, his affect is flat. Patient is dressed in green scrubs. Patients hands shake some. This freelance copywriter will address findings with the primary provider.
--- NOTE | 2020-04-03 19:29 | NUR ---
This residential mortgage underwriter addressed patients H&H and low platelets count. After research it looks to be nothing new. No active bleeding at this time. Patient is cooperative and resting quietly.
[2020-04-03] MEDS: famotidine 10mg tablet PO SCH (20:48)
[2020-04-03] MEDS ORDERED: traZODone 50mg tablet PO ONE (21:10)
[2020-04-03] MEDS: hydrOXYzine 25 MG tablet PO PRN (21:23)
--- NOTE | 2020-04-03 22:02 | NUR ---
BREAKING PRIMARY RN; WILL CONT TO MONITOR.
--- NOTE | 2020-04-03 23:43 | NUR ---
Patient is sleeping on his left side. He is in direct view from the nursing station.
--- NOTE | 2020-04-04 00:59 | NUR ---
BREAKING PRIMARY RN; WILL CONTINUE TO MONITOR.
[2020-04-04] MEDS ORDERED: traZODone 50mg tablet PO ONE (01:35)
--- NOTE | 2020-04-04 01:45 | NUR ---
Patient awoke, problems sleeping. Trazadone repeated X1.
[2020-04-04] MEDS: hydrOXYzine 25 MG tablet PO PRN ×3 (05:41→18:18)
--- NOTE | 2020-04-04 05:42 | NUR ---
Patient is awake, complaining of anxiety. Atarax given PO. Patient is compliant with medications.
[2020-04-04] MEDS ORDERED: acetaminophen 325mg tablet PO PRN (07:00)
[2020-04-04] MEDS ORDERED: ibuprofen tablet 400 MG TABLET PO PRN (07:00)
--- NOTE | 2020-04-04 07:00 | NUR ---
PT AMB TO BATHROOM. PT CALM AND COOPERATIVE.
[2020-04-04] MEDS: famotidine 10mg tablet PO SCH ×2 (08:00→19:32)
--- NOTE | 2020-04-04 08:42 | NUR ---
PT EVALUATED BY [facility] AND NOW LOOKING FOR PLACEMENT.
[2020-04-04] MEDS: LORazepam 1 MG tablet PO PRN ×2 (08:49→13:28)
--- NOTE | 2020-04-04 11:15 | NUR ---
PT GIVEN PORTABLE PHONE
--- NOTE | 2020-04-04 11:29 | NUR ---
PT THINKS HE HEARS SOMEONE KNOCKING AND GETS UP AND ASKS ABOUT IT. INFORM PT NO ONE IS KNOCKING. PT GOES BACK TO BED.
--- NOTE | 2020-04-04 13:29 | NUR ---
PT PACING THE FLOOR, ASKING WHAT IS THE FASTEST WAY TO GET OUTSIDE, LAYING IN BED TALKING TO SOMEONE IF HE IS ON THE PHONE. ASKING FOR HIS CELL PHONE AND HANDS ARE SHAKEY. NOTIFY PROVIDER AND GET PERMISSION TO ADMIN THE ORDER FOR PRN ATIVAN NOW. ADMIN NOW.
--- NOTE | 2020-04-04 14:53 | NUR ---
[facility] CALLED AND SPOKE WITH CHARGE NURSE OLIVER REQUESTING TO HAVE THEIR PA COME AND EVALUATE THE PT FOR WITHDRAWALS AND OTHER CONCERNS. PT IS CONFUSED, MUMBLING TO HIMSELF NONSENSICLE THINGS. BUGS ARE BANGING ON THE [place]. PT IS UNABLE TO USE THE PHONE WITHOUT HELP. SAI PINEDA IN NOW SITTING AT THE END OF HIS BED TO RE-ASSURE HIM THAT NO BUGS ARE THERE AND NO ONE IS KNOCKING AT THE DOOR.
--- NOTE | 2020-04-04 16:30 | NUR ---
STACIA THE PA FROM [facility] ARRIVES TO EMILE PT SO THAT HE CAN HAVE THE MEDICATIONS THAT HE NEEDS AT THIS TIME.
--- NOTE | 2020-04-04 17:19 | NUR ---
PT SITTING BY EDWIN THE TECH TO TALK TO HIM AND KEEP PT OCCUPIED AND CALM.
[2020-04-04] MEDS ORDERED: olanzapine 10mg tablet PO ONE (17:25)
--- NOTE | 2020-04-04 17:40 | NUR ---
ASSIST PT WITH DIALING THE PHONE TO CALL HIS DAD.
--- NOTE | 2020-04-04 18:09 | NUR ---
PT MOVES TO ROOM 21 WHERE THERE IS LESS NOISE. PT IS PARANOID ABOUT THE NOISES AND THEY ARE BOTHERING HIM.
--- NOTE | 2020-04-04 18:11 | NUR ---
PT IS EATING HIS DINNER.
--- NOTE | 2020-04-04 18:30 | NUR ---
Patient sitting on bed exhibiting anxiety, he is restless, looking around, on occasion speaking to someone who is not present. Per the day RN this patient has been started on Zyprexa, he has remained very restless.
--- NOTE | 2020-04-04 19:00 | NUR ---
Patient exhibiting audible and visual hallucinations, he attempted to alope from the unit once. Patient was redirected to bed. This credit underwriter will consult with DUKE PURVIS.
[2020-04-04] MEDS ORDERED: OLANZapine 5mg rapidly disint. tablet PO ONE (19:25)
[2020-04-04] MEDS ORDERED: LORazepam 1 MG tablet PO ONE (19:25)
--- NOTE | 2020-04-04 19:34 | NUR ---
Patient out of bed, he wanders and starts to elope the unit. He is being redirected as well as possible. Patient responding to internal stimuli. Patient threatens violence and postures at tech.
--- NOTE | 2020-04-04 19:50 | NUR ---
Patient remains pink, w/d, no shaking or tremors noted. Patient continues to respond to internal stimuli. Audible and visual hallucinations remain present. ER MD advised.
--- NOTE | 2020-04-04 20:00 | NUR ---
Patient continues to be agitated. He attempts to come behind the desk of the nursing station and grab desk items. Patient brought back to bed multiple times. Security has been called multiple times to assist.
[2020-04-04] MEDS ORDERED: haloperidol lactate 5mg/ml inj IM ONE (20:35)
--- NOTE | 2020-04-04 20:35 | NUR ---
Patient continues to experience audible and visual hallucinations. He is frequently out of bed. Patient is assertive at times, sometimes physical. Dr. Gamble will be consulted.
[2020-04-04] MEDS: traZODone 50mg tablet PO SCH (20:39)
[2020-04-04] MEDS: olanzapine 10mg tablet PO SCH (21:00)
[2020-04-04] MEDS ORDERED: MIDAZolam 5mg/ml 2ml vial IV ONE ×2 (21:40→22:00)
--- NOTE | 2020-04-04 21:53 | NUR ---
Verced 5 mg given IM. Patient continues his agression.
--- NOTE | 2020-04-04 22:01 | NUR ---
Patient agitated and hard to redirect. Dr. Castellanos was at bedside evaluating patient's status. Gave verbal for an addtional 5 of versed for his agitation
[2020-04-04] MEDS ORDERED: LORazepam 2 mg/ml vial IM ONE (22:40)
--- NOTE | 2020-04-04 22:45 | NUR ---
Patient remains agitated, he does not redirect, hallucinations continue. IM Versed 5 mg repeated.
--- NOTE | 2020-04-04 22:47 | NUR ---
Versed 5 mg given IM. Patient remains
--- NOTE | 2020-04-04 23:02 | NUR ---
Patient has minimal response to versed, he is labile and remains hallucinating. Ativan 1 mg given IM after break RN consulted with Dr. Varela.
--- NOTE | 2020-04-04 23:07 | NUR ---
Dr. Gamble was consulted. Zyprexa Zydis 10 mg was given PO. Patiens Ativan 1 mg PO was also given.
--- NOTE | 2020-04-04 23:30 | NUR ---
Patient remains delusional, at times combative. Break BRANDEE Haskins is advising Dr. Varela for this service writer. Requesting additional Ativan. Patient has rapid pulse around 130-140, he remains warm and dry with good color. No tremors noted.
--- NOTE | 2020-04-04 23:40 | NUR ---
Patient is being transfered to bed 15 in the main ER to be treated as a medical patient as he is not improving with antipsychotic medications, Ativan, Atarax, etc.
[2020-04-04] MEDS ORDERED: LORazepam 2 mg/ml vial IV ONE (23:45)
[2020-04-05] MEDS ORDERED: normal saline 1000ml 1,000 ML IV ONE (00:05)
--- NOTE | 2020-04-05 00:05 | NUR ---
BRANDEE Ware was given report on patients recent and current medical history. Last ETOH, and events surrounding patient behavior and care leading up to point of transfer.
[2020-04-05] MEDS ORDERED: LORazepam 2 mg/ml vial IV ONE ×3 (00:15→01:00)
[2020-04-05] MEDS ORDERED: LORazepam 2 mg/ml vial ONE (00:19)
[2020-04-05] MEDS ORDERED: normal saline 1000ML IV soln IVB ONE (00:20)
--- NOTE | 2020-04-05 00:39 | NUR ---
breaking primary rn , [place]. Pt remains in locked restraints. Intermittently mumbling. Just given ativan 3 mg iv (for a total of 9 mg iv in the past [address] Varela at bedside for this dose and is aware that Pt has received 9 mg in this timeframe. 2nd liter of NS bulus infusing. HR was up to 130's and st. Pt with eyes clsed and continues intermittently shifting and moving limbs while in restraints. Pt did voide the need "to pee" and was assested with urinal and voided 800 cc's clear light yellow urine.
[2020-04-05 00:42] LABS: HEMOGLOBIN 8.6 g/dl (14.0-17.9); MEAN CORPUSCULAR HEMOGLOBIN 25.7 PG (27.0-31.0); WHITE BLOOD COUNT 5.5 X10'3 (4.5-11.0)
[2020-04-05 00:44] LABS: BASOPHILS % (AUTO) 0.3 % (0-1); EOSINOPHILS % (AUTO) 0.4 % (0-6); HEMATOCRIT 27.7 % (42.0-52.0); LYMPHOCYTES # (AUTO) 0.8 X10'3 (1.1-4.8); LYMPHOCYTES % (AUTO) 13.7 % (21-51); MEAN CORPUSCULAR HGB CONC 30.9 g/dL (33.0-36.5); MEAN CORPUSCULAR VOLUME 83.4 FL (78-98); MEAN PLATELET VOLUME 7.5 FL (7.4-10.4); MONOCYTES # (AUTO) 0.9 X10'3 (0-0.9); MONOCYTES % (AUTO) 16.9 % (2-12); NEUTROPHILS # (AUTO) 3.8 X10'3 (1.8-7.7); NEUTROPHILS % (AUTO) 68.7 % (42-75); PLATELET COUNT 81 X10'3 (140-440); RED BLOOD COUNT 3.32 X10'6 (4.70-6.10); RED CELL DISTRIBUTION WIDTH 28.7 % (11.5-14.5)
[2020-04-05 00:51] LABS: ALANINE AMINOTRANSFERASE 39 U/L (12-78); ALBUMIN 3.1 G/DL (3.4-5.0); ALBUMIN/GLOBULIN RATIO 0.8 (1.1-1.5); ALKALINE PHOSPHATASE 95 IU/L (46-116); ANION GAP 12 (8-16); ASPARTATE AMINO TRANSFERASE 120 U/L (10-37); BILIRUBIN,TOTAL 0.5 MG/DL (0.1-1.0); BLOOD UREA NITROGEN 3 MG/DL (7-18); BUN/CREATININE RATIO 3.2 (5.4-32.0); CALCIUM 7.8 MG/DL (8.5-10.1); CHLORIDE 104 MMOL/L (99-107); CREATININE 0.93 MG/DL (0.60-1.10); GLUCOSE 107 MG/DL (70-104); POTASSIUM 3.4 MMOL/L (3.5-5.1); SODIUM 141 MMOL/L (135-145); TOTAL CARBON DIOXIDE 25.2 MMOL/L (24-32); TOTAL PROTEIN 7.2 G/DL (6.4-8.2); eGFR > 90 ML/MIN
[2020-04-05 00:53] LABS: CREATINE KINASE 968 U/L (39-308)
--- NOTE | 2020-04-05 00:59 | NUR ---
PT BECOMING VERY RESTLESS IN THE BED, TRYING TO SIT UP AND PULLING AT RESTRAINTS. HR 160-[address] MCMAHON AWARE AND ORDERING 4 MG IV ATIVAN.
--- NOTE | 2020-04-05 01:11 | NUR ---
Melvin GARCIA, AT BEDSIDE FOR ADMISSION TO LEAD BUSINESS ANALYST SERVICE. PT JUST GIVEN ATIVAN 4 MG IV (FOR TOTAL OF 13 MG IN THE PAST HOUR). DR. MCMAHON AT BEDSIDE ALSO. HR 141.
[2020-04-05] MEDS ORDERED: dexmedetomidin/NS 400mcg/100ml 100 ML IV SCH ×2 (01:25→06:00)
[2020-04-05] MEDS ORDERED: Neutra Phos packet PO PRN (01:40)
[2020-04-05] MEDS ORDERED: thiamine inj. 100 MG in normal saline 100ml IV soln 100 ML IV ONE (01:40)
[2020-04-05] MEDS ORDERED: potassium CL 10mEq/100ml bag 100 ML IV PRN (01:40)
[2020-04-05] MEDS ORDERED: glucagon, human recombinant 1mg kit SUBCUT PRN (01:40)
[2020-04-05] MEDS ORDERED: magnesium 2GM in 50ml NS 50 ML IV PRN (01:40)
[2020-04-05] MEDS ORDERED: potassium Cl 20 mEq SR tablet PO PRN (01:40)
[2020-04-05] MEDS ORDERED: sodium phosphate inj. 15 MMOL in dextrose 5%-water 250 ML IV PRN (01:40)
[2020-04-05] MEDS: dextrose 5%-1/2 normal saline 1,000 ML IV SCH ×2 (01:40→13:12)
[2020-04-05] MEDS ORDERED: acetaminophen 650mg rectal suppository RC PRN (01:40)
[2020-04-05] MEDS ORDERED: dextrose ORAL solution 15 GM/59 ML bottle PO PRN ×2 (01:40)
[2020-04-05] MEDS ORDERED: acetaminophen 325mg tablet PO PRN ×2 (01:40)
[2020-04-05] MEDS ORDERED: dextrose 50%-water 50ml dispensing syringe IV PRN ×2 (01:40)
[2020-04-05] MEDS ORDERED: ondansetron/PF 4mg/2ml inj IV PRN (01:40)
[2020-04-05] MEDS ORDERED: sodium phosphate inj. 30 MMOL in dextrose 5%-water 250 ML IV PRN (01:40)
[2020-04-05] MEDS ORDERED: magnesium 4gm in 100ml NS 100 ML IV PRN (01:40)
[2020-04-05] MEDS ORDERED: thiamine 100mg/ml 2ml inj. IV ONE (02:10)
[2020-04-05 02:38] LABS: PLATELET ESTIMATE DECREASED
[2020-04-05 02:39] LABS: ANISOCYTOSIS 3+; LARGE PLATELETS FEW
[2020-04-05 02:40] LABS: HYPOCHROMASIA 1+
[2020-04-05 02:41] LABS: TARGET CELLS FEW
--- NOTE | 2020-04-05 05:30 | NUR ---
Pt incontinent. Bedding and clothing changed. Pt became combative during personal care and pulling at lines. Restraints reapplied
[2020-04-05 05:35] LABS: AMYLASE 59 U/L (25-115); LIPASE 403 U/L (73-393); MAGNESIUM 1.4 MG/DL (1.5-2.4); PHOSPHORUS 3.9 MG/DL (2.3-4.5)
--- NOTE | 2020-04-05 06:00 | NUR ---
Pt SBP 89 with RASS score of -2. Instructed by June to decrease Precedex by 0.1 mcg/hr.
--- NOTE | 2020-04-05 06:49 | NUR ---
PT STILL OFF THE RESTRAIN ,NEUROVASC STATUS ASSESSED AGAIN [INTACT}.PT BP WAS 83/56,DRIP DROP DOWN TO 0.2 MCG Q 30 MINS PER PROVIDERS ORDER.
--- NOTE | 2020-04-05 07:08 | NUR ---
CALLED PHARMACY TO VERIFY THE PRECEDEX DRIP . PER PHARMACIST FRANK ,SCAN THE PT MED AND SART THE MED AND ENTER THE DOSE THE IV DRIP IS RUNNING AT .WILL FOLLOW THE ORDERS.
[2020-04-05] MEDS: K, MAG and/or Phos replacement - Verify level? MC SCH (08:00)
[2020-04-05] MEDS: pantoprazole 40 MG vial IV SCH ×2 (09:53→20:13)
[2020-04-05] MEDS: docusate sod 100mg capsule PO SCH ×2 (09:53→20:14)
[2020-04-05] MEDS: potassium Cl 20 mEq SR tablet PO PRN ×2 (09:54→18:48)
[2020-04-05] MEDS: famotidine 10mg tablet PO SCH ×2 (09:54→20:13)
--- NOTE | 2020-04-05 12:35 | NUR ---
SPOKE TO DR CANALES REGARDING PATIENT PER REQUEST OF AKNU BECK CAD CAM PROGRAMMER AND NURSING BRAKE PRESS OPERATOR. UPDATED ON PATIENT STATUS AND VSS AND REMAINS UNSTRAINED. PATIENT IS ORIENTED TO SELF AND HIS BIRTHDAY, UNPI=[id number], HOME[address]. ORDER TO WEAN OFF PRECEDEX GTT, GIVE 10 MG ZYPREXA NOW ORALLY OR IM AND OK TO TRANSFER TO PCU.
[2020-04-05] MEDS ORDERED: OLANZapine **IM** 10 mg inj. IM PRN (12:45)
[2020-04-05] MEDS ORDERED: OLANZapine 2.5MG tablet PO ONE (12:45)
--- NOTE | 2020-04-05 12:54 | NUR ---
PRECEDEX DECREASED TO 0.1 MG/KG/HR BY VINNIE, PRIMARY RN AT 12:20. PRECEDEX TUNED OFF NOW, DISCUSSED WITH COLTEN IRVIN AND VINNIE PRIMARY RN. RASS SCORE NEGATIVE 2. PATIENT OPENS HIS EYES TO VOICE COMMAND, BUT SLEEPY. ABLE TO ASK FOR WATER AND DRINK IT, LEFT HAND SLIGHTLY TREMULOUS WHILE HOLDING CUP TO DRINK.
[2020-04-05] MEDS ORDERED: THIA100T66 PO (13:14)
[2020-04-05] MEDS ORDERED: FOLI0.4T14 PO (13:14)
[2020-04-05] MEDS ORDERED: MULT-1085 PO (13:14)
[2020-04-05] MEDS ORDERED: PANT-47 PO (13:14)
[2020-04-05] MEDS ORDERED: FERR-39 PO (13:14)
[2020-04-05] MEDS ORDERED: CHLO25CA10 PO (13:14)
[2020-04-05] MEDS: thiamine inj. 100 MG, MVI, adult No.4 with vit. K 10 ML in dextrose 5% water 500ml 500 ML IV SCH ×3 (14:00)
[2020-04-05] MEDS: folic acid 1mg/0.2ml inj IV SCH (14:00)
--- NOTE | 2020-04-05 15:39 | NUR ---
Received report from BRANDEE Reed. Per BRANDEE Reed patient weaned off of precedex and will dc order prior to transferring patient to PCU room 3025E.
--- NOTE | 2020-04-05 15:59 | NUR ---
Received patient to room 3026a via gurney accompanied by 1 EXTRUSION PRESS OPERATOR. No precedex infusing. Dr Granados in to see patient and stated he does not need the Precedex drip. Patient is alert to name, having auditory hallucinations laughing and talking to self. Bed low and locked, X3 side rails up, call light placed within reach, oriented to room.
[2020-04-05 16:07] VITALS: BP 132/94
[2020-04-05 18:00] VITALS: BP 119/87
--- NOTE | 2020-04-05 18:10 | NUR ---
Patient in room PCU 3026. I have received report from BRANDEE Lang and had the opportunity to ask questions and assume patient care.
--- NOTE | 2020-04-05 18:43 | NUR ---
Problems reprioritized. Patient report given, questions answered & plan of care reviewed with Francis montague.
[2020-04-05] MEDS: magnesium Cl slow-release 64mg tablet PO PRN (18:49)
[2020-04-05] MEDS: olanzapine 10mg tablet PO SCH (20:13)
[2020-04-05] MEDS: LORazepam 2 mg/ml vial IV PRN ×4 (20:14→23:19)
[2020-04-05] MEDS: traZODone 50mg tablet PO SCH (20:28)
[2020-04-05 22:00] VITALS: BP 143/101
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
[2020-04-06] MEDS: LORazepam 2 mg/ml vial IV PRN ×10 (01:00→23:16)
[2020-04-06 02:00] VITALS: BP 147/103
--- NOTE | 2020-04-06 02:00 | NUR ---
Pt refused 0200 accucheck.
[2020-04-06 05:55] LABS: BASOPHILS # (AUTO) 0.1 X10'3 (0-0.2); BASOPHILS % (AUTO) 1.1 % (0-1); EOSINOPHILS # (AUTO) 0.1 X10'3 (0-0.9); EOSINOPHILS % (AUTO) 1.1 % (0-6); HEMATOCRIT 30.8 % (42.0-52.0); HEMOGLOBIN 9.4 g/dl (14.0-17.9); LYMPHOCYTES # (AUTO) 0.8 X10'3 (1.1-4.8); LYMPHOCYTES % (AUTO) 12.8 % (21-51); MEAN CORPUSCULAR HEMOGLOBIN 25.8 PG (27.0-31.0); MEAN CORPUSCULAR HGB CONC 30.5 g/dL (33.0-36.5); MEAN CORPUSCULAR VOLUME 84.6 FL (78-98); MONOCYTES # (AUTO) 0.8 X10'3 (0-0.9); MONOCYTES % (AUTO) 12.6 % (2-12); NEUTROPHILS # (AUTO) 4.4 X10'3 (1.8-7.7); NEUTROPHILS % (AUTO) 72.4 % (42-75); PLATELET COUNT 110 X10'3 (140-440); RED BLOOD COUNT 3.64 X10'6 (4.70-6.10); RED CELL DISTRIBUTION WIDTH 29.4 % (11.5-14.5); WHITE BLOOD COUNT 6.1 X10'3 (4.5-11.0)
[2020-04-06 06:13] LABS: ALANINE AMINOTRANSFERASE 56 U/L (12-78); ALBUMIN 3.4 G/DL (3.4-5.0); ALBUMIN/GLOBULIN RATIO 0.7 (1.1-1.5); ALKALINE PHOSPHATASE 87 IU/L (46-116); AMYLASE 52 U/L (25-115); ANION GAP 11 (8-16); ASPARTATE AMINO TRANSFERASE 218 U/L (10-37); BILIRUBIN,TOTAL 0.6 MG/DL (0.1-1.0); BLOOD UREA NITROGEN 1 MG/DL (7-18); BUN/CREATININE RATIO 1.2 (5.4-32.0); CHLORIDE 104 MMOL/L (99-107); CREATININE 0.83 MG/DL (0.60-1.10); GLUCOSE 98 MG/DL (70-104); LIPASE 241 U/L (73-393); MAGNESIUM 1.6 MG/DL (1.5-2.4); PHOSPHORUS 3.1 MG/DL (2.3-4.5); POTASSIUM 3.4 MMOL/L (3.5-5.1); SODIUM 139 MMOL/L (135-145); TOTAL CARBON DIOXIDE 23.9 MMOL/L (24-32); eGFR > 90 ML/MIN
--- NOTE | 2020-04-06 06:24 | NUR ---
Problems reprioritized. Patient report given, questions answered & plan of care reviewed with BRANDEE Peterson.
--- NOTE | 2020-04-06 06:54 | NUR ---
Patient in room PCU 3026. I have received report from BRANDEE White and had the opportunity to ask questions and assume patient care. Patient was awake and alert during report.
[2020-04-06 07:00] VITALS: BP 141/102
[2020-04-06 08:02] LABS: ANISOCYTOSIS 3+; ELLIPTOCYTES FEW; HYPOCHROMASIA 1+; LARGE PLATELETS FEW; PLATELET ESTIMATE DECREASED
[2020-04-06 08:03] LABS: POLYCHROMASIA FEW
[2020-04-06 08:04] LABS: SCHISTOCYTES FEW
[2020-04-06] MEDS: famotidine 10mg tablet PO SCH ×2 (08:05→20:05)
[2020-04-06] MEDS: docusate sod 100mg capsule PO SCH ×2 (08:05→20:05)
[2020-04-06] MEDS: pantoprazole 40 MG vial IV SCH ×2 (08:05→20:05)
[2020-04-06] MEDS: potassium CL 10mEq/100ml bag 100 ML IV PRN ×3 (08:31→16:59)
[2020-04-06] MEDS: K, MAG and/or Phos replacement - Verify level? MC SCH (08:38)
[2020-04-06] MEDS: dextrose 5%-1/2 normal saline 1,000 ML IV SCH ×4 (10:40→23:20)
[2020-04-06 11:00] VITALS: BP 136/89
[2020-04-06] MEDS ORDERED: chlordiazePOXIDE 25mg capsule PO PRN (11:20)
[2020-04-06] MEDS: thiamine inj. 100 MG, MVI, adult No.4 with vit. K 10 ML in dextrose 5% water 500ml 500 ML IV SCH ×3 (14:44)
[2020-04-06 15:00] VITALS: BP 122/83
[2020-04-06] MEDS: folic acid 1mg/0.2ml inj IV SCH (15:39)
[2020-04-06 18:00] VITALS: BP 132/88
--- NOTE | 2020-04-06 18:30 | NUR ---
Patient in room PCU 3012. I have received report from BRNADEE DISLA and had the opportunity to ask questions and assume patient care.
--- NOTE | 2020-04-06 18:39 | NUR ---
Problems reprioritized. Patient report given, questions answered & plan of care reviewed with Jasbir IRVIN.
[2020-04-06] MEDS ORDERED: pantoprazole 40mg Tablet.DR PO SCH (20:00)
[2020-04-06] MEDS: olanzapine 10mg tablet PO SCH (20:05)
[2020-04-06] MEDS: ferrous sulfate 325mg tablet PO SCH (20:05)
[2020-04-06] MEDS: traZODone 50mg tablet PO SCH (20:05)
[2020-04-06 22:00] VITALS: BP 159/102
[2020-04-07] VITALS (7 sets, daily range): BP systolic 96–154; BP diastolic 59–93
[2020-04-07] MEDS: haloperidol lactate 5mg/ml inj IM PRN (00:42)
[2020-04-07] MEDS ORDERED: lactulose 20gm/30ml cup PO PRN (01:40)
[2020-04-07] MEDS: LORazepam 2 mg/ml vial IV PRN ×7 (02:59→23:13)
[2020-04-07 05:59] LABS: BASOPHILS # (AUTO) 0.1 X10'3 (0-0.2); BASOPHILS % (AUTO) 1.1 % (0-1); EOSINOPHILS # (AUTO) 0.1 X10'3 (0-0.9); EOSINOPHILS % (AUTO) 1.5 % (0-6); HEMATOCRIT 30.1 % (42.0-52.0); HEMOGLOBIN 9.3 g/dl (14.0-17.9); LYMPHOCYTES % (AUTO) 11.8 % (21-51); MEAN CORPUSCULAR HGB CONC 30.9 g/dL (33.0-36.5); MEAN CORPUSCULAR VOLUME 83.9 FL (78-98); MEAN PLATELET VOLUME 7.5 FL (7.4-10.4); MONOCYTES # (AUTO) 1.2 X10'3 (0-0.9); MONOCYTES % (AUTO) 14.8 % (2-12); NEUTROPHILS # (AUTO) 5.8 X10'3 (1.8-7.7); NEUTROPHILS % (AUTO) 70.8 % (42-75); PLATELET COUNT 135 X10'3 (140-440); RED BLOOD COUNT 3.59 X10'6 (4.70-6.10); WHITE BLOOD COUNT 8.2 X10'3 (4.5-11.0)
--- NOTE | 2020-04-07 06:09 | NUR ---
Problems reprioritized. Patient report given, questions answered & plan of care reviewed with BRANDEE DISLA AND BRANDEE BETHEA.
[2020-04-07 06:13] LABS: ALANINE AMINOTRANSFERASE 67 U/L (12-78); ALBUMIN 3.4 G/DL (3.4-5.0); ALBUMIN/GLOBULIN RATIO 0.8 (1.1-1.5); ALKALINE PHOSPHATASE 78 IU/L (46-116); AMYLASE 44 U/L (25-115); ANION GAP 15 (8-16); ASPARTATE AMINO TRANSFERASE 186 U/L (10-37); BILIRUBIN,TOTAL 0.7 MG/DL (0.1-1.0); BLOOD UREA NITROGEN 3 MG/DL (7-18); BUN/CREATININE RATIO 3.1 (5.4-32.0); CALCIUM 8.8 MG/DL (8.5-10.1); CHLORIDE 106 MMOL/L (99-107); CREATININE 0.96 MG/DL (0.60-1.10); GLUCOSE 95 MG/DL (70-104); LIPASE 186 U/L (73-393); MAGNESIUM 1.4 MG/DL (1.5-2.4); PHOSPHORUS 2.9 MG/DL (2.3-4.5); POTASSIUM 3.3 MMOL/L (3.5-5.1); SODIUM 141 MMOL/L (135-145); TOTAL CARBON DIOXIDE 19.9 MMOL/L (24-32); TOTAL PROTEIN 7.6 G/DL (6.4-8.2); eGFR > 90 ML/MIN
--- NOTE | 2020-04-07 06:58 | NUR ---
Patient in room PCU 3012. I have received report from Jasbir IRVIN and had the opportunity to ask questions and assume patient care.
--- NOTE | 2020-04-07 07:15 | NUR ---
Patient in room PCU 3012. I have received report from BRANDEE Moralez and had the opportunity to ask questions and assume patient care. Patient awake during shift change, agitated and needed reorientation.
[2020-04-07] MEDS: thiamine 100mg tablet PO SCH ×3 (07:55→13:55)
[2020-04-07] MEDS: magnesium Cl slow-release 64mg tablet PO PRN (07:55)
[2020-04-07] MEDS: famotidine 10mg tablet PO SCH ×3 (07:55→20:00)
[2020-04-07] MEDS: ferrous sulfate 325mg tablet PO SCH ×3 (07:55→21:30)
[2020-04-07] MEDS: docusate sod 100mg capsule PO SCH ×3 (07:55→21:30)
[2020-04-07] MEDS: folic acid 0.4mg tablet PO SCH ×3 (07:56→13:44)
[2020-04-07] MEDS: potassium CL 10mEq/100ml bag 100 ML IV PRN ×4 (07:56→19:16)
[2020-04-07] MEDS: multivitamins, therapeutics tablet PO SCH ×2 (07:56→08:00)
[2020-04-07] MEDS: pantoprazole 40 MG vial IV SCH ×2 (07:56→21:37)
[2020-04-07] MEDS: K, MAG and/or Phos replacement - Verify level? MC SCH (08:00)
[2020-04-07] MEDS: dextrose 5%-1/2 normal saline 1,000 ML IV SCH ×2 (09:44→21:28)
--- NOTE | 2020-04-07 09:45 | NUR ---
Pt. refusing PO medications, IV protonix and IV Ativan was administered per MD order. MD notified.
[2020-04-07] MEDS: thiamine inj. 100 MG, MVI, adult No.4 with vit. K 10 ML in dextrose 5% water 500ml 500 ML IV SCH ×3 (13:44)
--- NOTE | 2020-04-07 18:41 | NUR ---
Problems reprioritized. Patient report given, questions answered & plan of care reviewed with Avani IRVIN.
--- NOTE | 2020-04-07 18:43 | NUR ---
Agree with orientee's documentation (Kristy Huerta RN)
[2020-04-07] MEDS: olanzapine 10mg tablet PO SCH (21:30)
[2020-04-07] MEDS: traZODone 50mg tablet PO SCH (21:30)
[2020-04-08 02:00] VITALS: BP 130/83
[2020-04-08] MEDS: LORazepam 2 mg/ml vial IV PRN ×2 (02:40→22:56)
[2020-04-08 06:00] VITALS: BP 133/84
[2020-04-08 06:26] LABS: BASOPHILS # (AUTO) 0.1 X10'3 (0-0.2); EOSINOPHILS # (AUTO) 0.2 X10'3 (0-0.9); EOSINOPHILS % (AUTO) 3.6 % (0-6); HEMATOCRIT 28.6 % (42.0-52.0); HEMOGLOBIN 8.8 g/dl (14.0-17.9); LYMPHOCYTES # (AUTO) 0.8 X10'3 (1.1-4.8); MEAN CORPUSCULAR HEMOGLOBIN 26.4 PG (27.0-31.0); MEAN CORPUSCULAR HGB CONC 30.9 g/dL (33.0-36.5); MEAN CORPUSCULAR VOLUME 85.5 FL (78-98); MEAN PLATELET VOLUME 7.2 FL (7.4-10.4); MONOCYTES # (AUTO) 1.2 X10'3 (0-0.9); MONOCYTES % (AUTO) 18.7 % (2-12); NEUTROPHILS # (AUTO) 4.1 X10'3 (1.8-7.7); NEUTROPHILS % (AUTO) 63.7 % (42-75); PLATELET COUNT 180 X10'3 (140-440); RED BLOOD COUNT 3.34 X10'6 (4.70-6.10); RED CELL DISTRIBUTION WIDTH 30.4 % (11.5-14.5); WHITE BLOOD COUNT 6.5 X10'3 (4.5-11.0)
[2020-04-08 06:58] LABS: ALANINE AMINOTRANSFERASE 54 U/L (12-78); ALBUMIN 2.9 G/DL (3.4-5.0); ALBUMIN/GLOBULIN RATIO 0.7 (1.1-1.5); ALKALINE PHOSPHATASE 70 IU/L (46-116); AMYLASE 40 U/L (25-115); ANION GAP 12 (8-16); ASPARTATE AMINO TRANSFERASE 116 U/L (10-37); BILIRUBIN,TOTAL 0.6 MG/DL (0.1-1.0); BLOOD UREA NITROGEN 2 MG/DL (7-18); BUN/CREATININE RATIO 2.6 (5.4-32.0); CALCIUM 8.4 MG/DL (8.5-10.1); CHLORIDE 107 MMOL/L (99-107); CREATININE 0.77 MG/DL (0.60-1.10); GLUCOSE 79 MG/DL (70-104); LIPASE 196 U/L (73-393); PHOSPHORUS 4.3 MG/DL (2.3-4.5); POTASSIUM 3.4 MMOL/L (3.5-5.1); SODIUM 142 MMOL/L (135-145); TOTAL CARBON DIOXIDE 23.4 MMOL/L (24-32); TOTAL PROTEIN 6.9 G/DL (6.4-8.2); eGFR > 90 ML/MIN
--- NOTE | 2020-04-08 07:07 | NUR ---
Patient in room PCU 3012C. I have received report from BRANDEE STACK and had the opportunity to ask questions and assume patient care.
[2020-04-08 07:42] LABS: TOTAL CELLS COUNTED 100
[2020-04-08 07:43] LABS: ANISOCYTOSIS 3+; PLATELET ESTIMATE NORMAL
[2020-04-08] MEDS: K, MAG and/or Phos replacement - Verify level? MC SCH (08:00)
[2020-04-08] MEDS: docusate sod 100mg capsule PO SCH ×2 (08:10→20:00)
[2020-04-08] MEDS: pantoprazole 40 MG vial IV SCH ×2 (08:10→20:57)
[2020-04-08] MEDS: dextrose 5%-1/2 normal saline 1,000 ML IV SCH ×2 (08:10→17:11)
[2020-04-08] MEDS: multivitamins, therapeutics tablet PO SCH (08:11)
[2020-04-08] MEDS: ferrous sulfate 325mg tablet PO SCH ×2 (08:11→20:57)
[2020-04-08] MEDS: thiamine 100mg tablet PO SCH (08:11)
[2020-04-08] MEDS: folic acid 1mg tablet PO SCH (08:11)
[2020-04-08] MEDS: potassium Cl 20 mEq SR tablet PO PRN (08:43)
[2020-04-08 11:00] VITALS: BP 135/94
[2020-04-08] MEDS ORDERED: HYDROcodone/acetaminophen 5mg/325mg tablet PO PRN (13:35)
[2020-04-08 15:00] VITALS: BP 135/94
[2020-04-08 18:00] VITALS: BP 119/80
[2020-04-08] MEDS: LORazepam 1 MG tablet PO PRN (19:04)
--- NOTE | 2020-04-08 19:07 | NUR ---
Problems reprioritized. Patient report given, questions answered & plan of care reviewed with BRANDEE CUNNINGHAM.
[2020-04-08] MEDS: famotidine 20mg tablet PO SCH (20:56)
[2020-04-08] MEDS: olanzapine 10mg tablet PO SCH (20:57)
[2020-04-08] MEDS: traZODone 50mg tablet PO SCH (20:57)
[2020-04-09] MEDS: LORazepam 2 mg/ml vial IV PRN ×9 (00:20→23:10)
--- NOTE | 2020-04-09 01:02 | NUR ---
pt breaking restraints trying to get out of bed to "go to kitchen for water".
[2020-04-09 02:00] VITALS: BP 148/95
[2020-04-09] MEDS: haloperidol lactate 5mg/ml inj IM PRN (02:42)
--- NOTE | 2020-04-09 03:06 | NUR ---
Patient refused 0200 blood glucose check. Will continue to monitor
[2020-04-09 06:00] VITALS: BP 136/87
--- NOTE | 2020-04-09 06:00 | NUR ---
Patient in room PCU 3012. I have received report from BRANDEE Thakkar and had the opportunity to ask questions and assume patient care.
[2020-04-09 06:03] LABS: BASOPHILS # (AUTO) 0.1 X10'3 (0-0.2); BASOPHILS % (AUTO) 0.9 % (0-1); EOSINOPHILS # (AUTO) 0.2 X10'3 (0-0.9); EOSINOPHILS % (AUTO) 2.3 % (0-6); HEMATOCRIT 30.3 % (42.0-52.0); HEMOGLOBIN 9.4 g/dl (14.0-17.9); LYMPHOCYTES # (AUTO) 1.1 X10'3 (1.1-4.8); LYMPHOCYTES % (AUTO) 12.7 % (21-51); MEAN CORPUSCULAR HEMOGLOBIN 26.4 PG (27.0-31.0); MEAN CORPUSCULAR HGB CONC 31.2 g/dL (33.0-36.5); MEAN CORPUSCULAR VOLUME 84.8 FL (78-98); MEAN PLATELET VOLUME 7.8 FL (7.4-10.4); MONOCYTES # (AUTO) 1.6 X10'3 (0-0.9); MONOCYTES % (AUTO) 19.2 % (2-12); NEUTROPHILS # (AUTO) 5.5 X10'3 (1.8-7.7); NEUTROPHILS % (AUTO) 64.9 % (42-75); PLATELET COUNT 263 X10'3 (140-440); RED BLOOD COUNT 3.57 X10'6 (4.70-6.10); RED CELL DISTRIBUTION WIDTH 29.1 % (11.5-14.5); WHITE BLOOD COUNT 8.5 X10'3 (4.5-11.0)
[2020-04-09 06:28] LABS: ALANINE AMINOTRANSFERASE 42 U/L (12-78); ALBUMIN 3.1 G/DL (3.4-5.0); ALBUMIN/GLOBULIN RATIO 0.8 (1.1-1.5); ALKALINE PHOSPHATASE 72 IU/L (46-116); AMYLASE 43 U/L (25-115); ANION GAP 12 (8-16); ASPARTATE AMINO TRANSFERASE 70 U/L (10-37); BILIRUBIN,TOTAL 0.4 MG/DL (0.1-1.0); BLOOD UREA NITROGEN 1 MG/DL (7-18); BUN/CREATININE RATIO 1.2 (5.4-32.0); CALCIUM 8.7 MG/DL (8.5-10.1); CHLORIDE 107 MMOL/L (99-107); CREATININE 0.84 MG/DL (0.60-1.10); GLUCOSE 99 MG/DL (70-104); LIPASE 175 U/L (73-393); MAGNESIUM 1.7 MG/DL (1.5-2.4); PHOSPHORUS 3.5 MG/DL (2.3-4.5); POTASSIUM 3.8 MMOL/L (3.5-5.1); SODIUM 141 MMOL/L (135-145); TOTAL CARBON DIOXIDE 21.9 MMOL/L (24-32); TOTAL PROTEIN 7.2 G/DL (6.4-8.2); eGFR > 90 ML/MIN
[2020-04-09] MEDS: K, MAG and/or Phos replacement - Verify level? MC SCH (08:00)
[2020-04-09] MEDS: dextrose 5%-1/2 normal saline 1,000 ML IV SCH ×2 (08:02→15:40)
[2020-04-09] MEDS: docusate sod 100mg capsule PO SCH (08:02)
[2020-04-09] MEDS: folic acid 1mg tablet PO SCH (08:05)
[2020-04-09] MEDS: multivitamins, therapeutics tablet PO SCH (08:05)
[2020-04-09] MEDS: famotidine 20mg tablet PO SCH (08:05)
[2020-04-09] MEDS: ferrous sulfate 325mg tablet PO SCH ×2 (08:05→10:25)
[2020-04-09] MEDS: thiamine 100mg tablet PO SCH (08:06)
[2020-04-09] MEDS: pantoprazole 40 MG vial IV SCH (08:06)
[2020-04-09 09:01] LABS: ANISOCYTOSIS 3+; PLATELET ESTIMATE NORMAL; TOTAL CELLS COUNTED 100
[2020-04-09 09:02] LABS: HYPOCHROMASIA 1+; POLYCHROMASIA 1+
[2020-04-09] MEDS ORDERED: chlordiazePOXIDE 25mg capsule PO PRN (10:25)
[2020-04-09] MEDS ORDERED: docusate sod 100mg capsule PO PRN (10:25)
[2020-04-09 11:00] VITALS: BP 126/73
[2020-04-09 15:00] VITALS: BP 121/73
[2020-04-09 18:00] VITALS: BP 119/73
--- NOTE | 2020-04-09 18:30 | NUR ---
Patient in room PCU 3012. I have received report from MARTÍNEZ IRVIN and had the opportunity to ask questions and assume patient care.
--- NOTE | 2020-04-09 18:36 | NUR ---
Problems reprioritized. Patient report given, questions answered & plan of care reviewed with BRANDEE Martini.
[2020-04-09] MEDS: olanzapine 10mg tablet PO SCH (20:16)
[2020-04-09] MEDS: pantoprazole 40mg Tablet.DR PO SCH (20:16)
[2020-04-09] MEDS: traZODone 50mg tablet PO SCH (20:17)
[2020-04-09 22:00] VITALS: BP 135/78
[2020-04-10] MEDS: dextrose 5%-1/2 normal saline 1,000 ML IV SCH ×3 (00:29→21:21)
[2020-04-10 02:00] VITALS: BP 111/77
[2020-04-10] MEDS: HYDROcodone/acetaminophen 5mg/325mg tablet PO PRN ×4 (02:47→23:04)
[2020-04-10 05:24] LABS: BASOPHILS # (AUTO) 0.1 X10'3 (0-0.2); BASOPHILS % (AUTO) 1.4 % (0-1); EOSINOPHILS # (AUTO) 0.2 X10'3 (0-0.9); EOSINOPHILS % (AUTO) 3.7 % (0-6); HEMATOCRIT 28.3 % (42.0-52.0); HEMOGLOBIN 8.6 g/dl (14.0-17.9); LYMPHOCYTES # (AUTO) 0.9 X10'3 (1.1-4.8); LYMPHOCYTES % (AUTO) 16.3 % (21-51); MEAN CORPUSCULAR HEMOGLOBIN 25.5 PG (27.0-31.0); MEAN CORPUSCULAR HGB CONC 30.3 g/dL (33.0-36.5); MEAN CORPUSCULAR VOLUME 84.3 FL (78-98); MEAN PLATELET VOLUME 7.9 FL (7.4-10.4); MONOCYTES # (AUTO) 1.2 X10'3 (0-0.9); MONOCYTES % (AUTO) 22.9 % (2-12); NEUTROPHILS % (AUTO) 55.7 % (42-75); PLATELET COUNT 319 X10'3 (140-440); RED BLOOD COUNT 3.35 X10'6 (4.70-6.10); WHITE BLOOD COUNT 5.5 X10'3 (4.5-11.0)
[2020-04-10 06:09] LABS: ALANINE AMINOTRANSFERASE 32 U/L (12-78); ALBUMIN 2.7 G/DL (3.4-5.0); ALBUMIN/GLOBULIN RATIO 0.7 (1.1-1.5); ALKALINE PHOSPHATASE 62 IU/L (46-116); AMYLASE 39 U/L (25-115); ANION GAP 9 (8-16); ASPARTATE AMINO TRANSFERASE 42 U/L (10-37); BILIRUBIN,TOTAL 0.4 MG/DL (0.1-1.0); BLOOD UREA NITROGEN 3 MG/DL (7-18); BUN/CREATININE RATIO 4.1 (5.4-32.0); CALCIUM 8.4 MG/DL (8.5-10.1); CHLORIDE 106 MMOL/L (99-107); CREATININE 0.73 MG/DL (0.60-1.10); GLUCOSE 125 MG/DL (70-104); LIPASE 179 U/L (73-393); MAGNESIUM 1.7 MG/DL (1.5-2.4); POTASSIUM 3.3 MMOL/L (3.5-5.1); SODIUM 141 MMOL/L (135-145); TOTAL PROTEIN 6.4 G/DL (6.4-8.2); eGFR > 90 ML/MIN
--- NOTE | 2020-04-10 06:38 | NUR ---
Problems reprioritized. Patient report given, questions answered & plan of care reviewed with PARAMJIT IRVIN.
[2020-04-10 07:00] VITALS: BP 98/59
[2020-04-10] MEDS ORDERED: POTASSIUM BICARB 20meq eff tab 20 MEQ TABLET.EFF PO PRN (07:29)
[2020-04-10] MEDS: K, MAG and/or Phos replacement - Verify level? MC SCH (08:00)
[2020-04-10] MEDS: pantoprazole 40mg Tablet.DR PO SCH ×2 (08:00→21:17)
[2020-04-10] MEDS: folic acid 1mg tablet PO SCH (10:22)
[2020-04-10] MEDS: ferrous sulfate 325mg tablet PO SCH (10:22)
[2020-04-10] MEDS: thiamine 100mg tablet PO SCH (10:23)
[2020-04-10] MEDS: multivitamins, therapeutics tablet PO SCH (10:23)
[2020-04-10] MEDS: POTASSIUM BICARB 20meq eff tab 20 MEQ TABLET.EFF PO PRN ×3 (10:27→17:29)
[2020-04-10 11:00] VITALS: BP 118/71
--- NOTE | 2020-04-10 12:43 | NUR ---
Initial: Pt currently on a 5150 admit with depression with SI and alcohol withdrawal delirium. Pt with austin DTs and is lethargic with no signs of active alcohol withdrawal per MD note. Pt currently receiving routine Thiamine, Folic acid, and MVI. Per physical assessment pt A/O x 1 and confused. Pt on a clear liquid diet with fluctuating PO intake not meeting estimated nutrient needs, though unable to meet nutrient needs on current diet order. Recommend diet advancement to regular as medically indicated. Pt may benefit from feeding assistance given ALOC. LBM 04/05. Constipation also likely to impact appetite. Pt previously receiving routine bowel care and received first dose of PRN Lactulose today. Will continue to follow closely and make recommendations as appropriate. Recommendations: 1) Advance to regular diet as medically indicated 2) Encourage PO intake; assist with meals given pt A/O x 1 and confused 3) Monitor need for ONS 4) Continue routine Thiamine, Folic acid, and MVI given EtOH hx 5) Routine bowel care 6) Scaled weights per rx Addendum: 04/10/20 at [address] Amended: Links added.
[2020-04-10 15:00] VITALS: BP 108/69
[2020-04-10 18:00] VITALS: BP 125/81
--- NOTE | 2020-04-10 19:11 | NUR ---
Gave report to Prudence BRANDEE.
[2020-04-10] MEDS: traZODone 50mg tablet PO SCH (21:17)
[2020-04-10] MEDS: olanzapine 10mg tablet PO SCH (21:17)
[2020-04-10 22:00] VITALS: BP 134/82
[2020-04-11 02:00] VITALS: BP 100/67
[2020-04-11] MEDS: dextrose 5%-1/2 normal saline 1,000 ML IV SCH (05:42)
[2020-04-11 06:00] VITALS: BP 114/71
--- NOTE | 2020-04-11 06:30 | NUR ---
Patient in room PCU 3012. I have received report from BRANDEE ERVIN and had the opportunity to ask questions and assume patient care.
--- NOTE | 2020-04-11 06:41 | NUR ---
Problems reprioritized. Patient report given, questions answered & plan of care reviewed with JORDON RN.
[2020-04-11] MEDS: ferrous sulfate 325mg tablet PO SCH (08:00)
[2020-04-11] MEDS: K, MAG and/or Phos replacement - Verify level? MC SCH (08:00)
[2020-04-11] MEDS: pantoprazole 40mg Tablet.DR PO SCH ×2 (08:38→20:23)
[2020-04-11] MEDS: folic acid 1mg tablet PO SCH (08:38)
[2020-04-11] MEDS: thiamine 100mg tablet PO SCH (08:39)
[2020-04-11] MEDS: multivitamins, therapeutics tablet PO SCH (08:39)
[2020-04-11] MEDS: HYDROcodone/acetaminophen 5mg/325mg tablet PO PRN ×2 (08:45→17:19)
--- NOTE | 2020-04-11 10:12 | NUR ---
PAGER ID: [phone] MESSAGE: DR. TIM, [id number]/MARS, CAN WE PLEASE STOP THE ETOH ACCUCHECKS? BG IS STABLE. ON CL LIQ DIET, WANTS SO;OID FOOD? CAN WE ADV. DIET? JORDON [id number]. TY
[2020-04-11 11:00] VITALS: BP 110/70
[2020-04-11] MEDS: hydrOXYzine 25 MG tablet PO PRN (12:42)
[2020-04-11 15:00] VITALS: BP 124/80
--- NOTE | 2020-04-11 16:01 | NUR ---
PAGER ID: [phone] MESSAGE: DR. TIM, [id number]/[place], ZURDO BOWERS CHG RN COULD NOT START. WHAT CAN WE DO FOR IV ACCESS? JORDON [id number]. TY
--- NOTE | 2020-04-11 18:13 | NUR ---
Problems reprioritized. Patient report given, questions answered & plan of care reviewed with BRANDEE DAWKINS.
[2020-04-11 22:00] VITALS: BP 130/90
[2020-04-11] MEDS: traZODone 50mg tablet PO SCH (22:00)
[2020-04-11] MEDS: olanzapine 10mg tablet PO SCH (22:01)
[2020-04-12] MEDS: LORazepam 1 MG tablet PO PRN ×2 (01:53→09:43)
[2020-04-12 06:00] VITALS: BP 96/51
--- NOTE | 2020-04-12 06:35 | NUR ---
Patient in room PCU 3012. I have received report from BRANDEE DAWKINS and had the opportunity to ask questions and assume patient care.
--- NOTE | 2020-04-12 07:01 | NUR ---
Problems reprioritized. Patient report given, questions answered & plan of care reviewed with JORDON. Addendum: 04/12/20 at 0702 by Wan Liao RN Amended: Links added.
[2020-04-12] MEDS: ferrous sulfate 325mg tablet PO SCH (07:35)
[2020-04-12] MEDS: pantoprazole 40mg Tablet.DR PO SCH ×2 (07:36→19:38)
[2020-04-12] MEDS: folic acid 1mg tablet PO SCH (07:36)
[2020-04-12] MEDS: multivitamins, therapeutics tablet PO SCH (07:37)
[2020-04-12] MEDS: thiamine 100mg tablet PO SCH (07:37)
[2020-04-12] MEDS: HYDROcodone/acetaminophen 5mg/325mg tablet PO PRN ×3 (07:38→21:28)
[2020-04-12] MEDS: K, MAG and/or Phos replacement - Verify level? MC SCH (08:00)
[2020-04-12 11:00] VITALS: BP 118/61
[2020-04-12 15:00] VITALS: BP 116/70
--- NOTE | 2020-04-12 18:36 | NUR ---
Problems reprioritized. Patient report given, questions answered & plan of care reviewed with BRANDEE MOSES.
--- NOTE | 2020-04-12 18:46 | NUR ---
Patient in room U 3012. I have received report from JORDON IRVIN and had the opportunity to ask questions and assume patient care. Addendum: 04/12/20 at 1846 by Jacqueline Brown RN Amended: Links added.
[2020-04-12 19:11] VITALS: BP 106/69
[2020-04-12] MEDS: traZODone 50mg tablet PO SCH (21:00)
[2020-04-12] MEDS: olanzapine 10mg tablet PO SCH (21:38)
--- NOTE | 2020-04-12 21:40 | NUR ---
PT TOOK ZYPREXA 10MG SAID HE'D TRY THE 25MG OF LIBRIUM DOSE TO SEE HOW HE DOES WITH THAT BUT REFUSED THE TRAZODONE 10MG BECAUSE HE SAID,"ELEVATES HEART HEART A LOT MIND BUZZING M DIZZY AND NAUSEATED, MIND 1000 MILES AN HOUR NON STOP AND UNABLE TO SLEEP. HE SAID WHEN IT TOOK THIS MED IT WAS THE ONLY ONE HE TOOK AND THIS IS HOW HE REACTED TO IT. LET HIM KNOW I WOULD PASS THIS ON TO WHY HE DIDN'T TAKE IT.
[2020-04-13] VITALS (7 sets, daily range): BP systolic 106–127; BP diastolic 61–80
[2020-04-13] MEDS: HYDROcodone/acetaminophen 5mg/325mg tablet PO PRN ×4 (01:09→20:09)
--- NOTE | 2020-04-13 01:10 | NUR ---
medicated for pain with po norco tolerated well.
[2020-04-13] MEDS: LORazepam 1 MG tablet PO PRN ×2 (03:05→17:31)
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
--- NOTE | 2020-04-13 03:50 | NUR ---
resting eyes closed without changes.
--- NOTE | 2020-04-13 04:25 | NUR ---
pt up to the shower and new tele leads applied.
--- NOTE | 2020-04-13 05:13 | NUR ---
pt back to bed resting now pleasant.
--- NOTE | 2020-04-13 06:41 | NUR ---
Patient in room PCU 3012. I have received report from BRANDEE MOSES and had the opportunity to ask questions and assume patient care.
--- NOTE | 2020-04-13 06:52 | NUR ---
Problems reprioritized. Patient report given, questions answered & plan of care reviewed with JORDON IRVIN. Addendum: 04/13/20 at 0653 by Jacqueline Brown RN Amended: Links added.
[2020-04-13] MEDS: K, MAG and/or Phos replacement - Verify level? MC SCH (08:00)
[2020-04-13] MEDS: ferrous sulfate 325mg tablet PO SCH (08:54)
[2020-04-13] MEDS: folic acid 1mg tablet PO SCH (08:55)
[2020-04-13] MEDS: pantoprazole 40mg Tablet.DR PO SCH ×2 (08:55→20:07)
[2020-04-13] MEDS: thiamine 100mg tablet PO SCH (08:56)
[2020-04-13] MEDS: multivitamins, therapeutics tablet PO SCH (08:56)
--- NOTE | 2020-04-13 13:02 | NUR ---
Reassessment: Pt admitted for 5150 and alcohol withdrawal. Pt has been receiving routine thiamine, folic acid, and MVI. Pt has advanced to regular diet from clear liquid, with average 75-100% PO intake since 04/10. Pt meeting nutrient needs. Last BM 04/11. No nutrition concerns at this time, will continue to follow. Recommendations: 1) Continue regular diet 2) Bowel care as needed 3) Scaled wt per Rx 4) Continue routine thiamine, folic acid and MVI Addendum: 04/13/20 at [address] Amended: Links added. Addendum: 04/13/20 at [address] RD agree with note
--- NOTE | 2020-04-13 18:13 | NUR ---
Problems reprioritized. Patient report given, questions answered & plan of care reviewed with BRANDEE CHAPMAN.
--- NOTE | 2020-04-13 18:15 | NUR ---
Student Medication Administration: For this medication-pass time frame, all medication were reviewed, dispensed, administered and documented per hospital policy by BRANDEE BEYER STUDENT..
--- NOTE | 2020-04-13 19:12 | NUR ---
I have received report from Avery IRVIN and had the opportunity to ask questions and assume patient care.
[2020-04-13] MEDS: traZODone 50mg tablet PO SCH (20:08)
[2020-04-13] MEDS: olanzapine 10mg tablet PO SCH (20:08)
[2020-04-14 02:00] VITALS: BP 120/78
[2020-04-14] MEDS: HYDROcodone/acetaminophen 5mg/325mg tablet PO PRN ×4 (02:16→20:04)
--- NOTE | 2020-04-14 06:19 | NUR ---
Problems reprioritized. Patient report given, questions answered & plan of care reviewed with Rita IRVIN.
--- NOTE | 2020-04-14 06:35 | NUR ---
Patient in room PCU 3012. I have received report from BRANDEE Nath and had the opportunity to ask questions and assume patient care. Pt sleeping comfortably at change of shift. Sitter at bedside.
[2020-04-14 07:00] VITALS: BP 100/70
[2020-04-14] MEDS: K, MAG and/or Phos replacement - Verify level? MC SCH (08:00)
[2020-04-14] MEDS: folic acid 1mg tablet PO SCH (08:24)
[2020-04-14] MEDS: ferrous sulfate 325mg tablet PO SCH (08:24)
[2020-04-14] MEDS: pantoprazole 40mg Tablet.DR PO SCH ×2 (08:25→20:05)
[2020-04-14] MEDS: multivitamins, therapeutics tablet PO SCH (08:25)
[2020-04-14] MEDS: thiamine 100mg tablet PO SCH (08:25)
[2020-04-14] MEDS: LORazepam 1 MG tablet PO PRN (08:30)
[2020-04-14 11:00] VITALS: BP 107/64
[2020-04-14 15:00] VITALS: BP 125/76
[2020-04-14 18:00] VITALS: BP 122/68
--- NOTE | 2020-04-14 18:18 | NUR ---
Problems reprioritized. Patient report given, questions answered & plan of care reviewed with BRANDEE Terrazas. Pt sitting up in chair eating dinner. Sitter at bedside. All pt needs met at this time.
--- NOTE | 2020-04-14 18:30 | NUR ---
Patient in room PCU 3012. I have received report from LILI IRVIN and had the opportunity to ask questions and assume patient care.
[2020-04-14] MEDS: olanzapine 10mg tablet PO SCH (20:04)
[2020-04-14] MEDS: traZODone 50mg tablet PO SCH (20:05)
[2020-04-14 22:00] VITALS: BP 124/82
[2020-04-15 02:00] VITALS: BP 98/59
[2020-04-15] MEDS: HYDROcodone/acetaminophen 5mg/325mg tablet PO PRN ×3 (02:16→14:55)
[2020-04-15 06:00] VITALS: BP 122/76
--- NOTE | 2020-04-15 06:08 | NUR ---
Problems reprioritized. Patient report given, questions answered & plan of care reviewed with MARTIN IRVIN.
--- NOTE | 2020-04-15 06:10 | NUR ---
Patient in room PCU 3012. I have received report from Madisyn Mars RN and had the opportunity to ask questions and assume patient care.
[2020-04-15] MEDS: K, MAG and/or Phos replacement - Verify level? MC SCH (08:00)
[2020-04-15] MEDS: pantoprazole 40mg Tablet.DR PO SCH (08:34)
[2020-04-15] MEDS: multivitamins, therapeutics tablet PO SCH (08:34)
[2020-04-15] MEDS: LORazepam 1 MG tablet PO PRN ×2 (08:34→14:55)
[2020-04-15] MEDS: thiamine 100mg tablet PO SCH (08:34)
[2020-04-15] MEDS: folic acid 1mg tablet PO SCH (08:34)
[2020-04-15] MEDS: ferrous sulfate 325mg tablet PO SCH (08:35)
[2020-04-15 10:51] LABS: BASOPHILS # (AUTO) 0.1 X10'3 (0-0.2); BASOPHILS % (AUTO) 1.6 % (0-1); EOSINOPHILS # (AUTO) 0.2 X10'3 (0-0.9); EOSINOPHILS % (AUTO) 2.4 % (0-6); HEMATOCRIT 31.8 % (42.0-52.0); HEMOGLOBIN 9.7 g/dl (14.0-17.9); LYMPHOCYTES # (AUTO) 1.4 X10'3 (1.1-4.8); LYMPHOCYTES % (AUTO) 18.6 % (21-51); MEAN CORPUSCULAR HEMOGLOBIN 25.4 PG (27.0-31.0); MEAN CORPUSCULAR HGB CONC 30.5 g/dL (33.0-36.5); MEAN CORPUSCULAR VOLUME 83.3 FL (78-98); MONOCYTES # (AUTO) 1.2 X10'3 (0-0.9); MONOCYTES % (AUTO) 16.5 % (2-12); NEUTROPHILS # (AUTO) 4.5 X10'3 (1.8-7.7); NEUTROPHILS % (AUTO) 60.9 % (42-75); PLATELET COUNT 866 X10'3 (140-440); RED BLOOD COUNT 3.81 X10'6 (4.70-6.10); RED CELL DISTRIBUTION WIDTH 28.3 % (11.5-14.5); WHITE BLOOD COUNT 7.4 X10'3 (4.5-11.0)
[2020-04-15 11:04] LABS: ALANINE AMINOTRANSFERASE 19 U/L (12-78); ALBUMIN 3.3 G/DL (3.4-5.0); ALBUMIN/GLOBULIN RATIO 0.8 (1.1-1.5); ALKALINE PHOSPHATASE 86 IU/L (46-116); ANION GAP 6 (8-16); ASPARTATE AMINO TRANSFERASE 29 U/L (10-37); BILIRUBIN,TOTAL 0.1 MG/DL (0.1-1.0); BLOOD UREA NITROGEN 15 MG/DL (7-18); CALCIUM 9.1 MG/DL (8.5-10.1); CHLORIDE 102 MMOL/L (99-107); CREATININE 0.88 MG/DL (0.60-1.10); GLUCOSE 109 MG/DL (70-104); POTASSIUM 4.3 MMOL/L (3.5-5.1); SODIUM 136 MMOL/L (135-145); TOTAL CARBON DIOXIDE 28.5 MMOL/L (24-32); TOTAL PROTEIN 7.7 G/DL (6.4-8.2); eGFR > 90 ML/MIN
[2020-04-15 11:10] LABS: LARGE PLATELETS FEW; PLATELET ESTIMATE INCREASED
[2020-04-15 11:11] LABS: ANISOCYTOSIS 3+
[2020-04-15 11:12] LABS: ELLIPTOCYTES FEW; HYPOCHROMASIA 1+; STOMATOCYTES FEW
[2020-04-15 11:28] VITALS: BP 121/74
[2020-04-15 15:48] VITALS: BP 115/71
--- NOTE | 2020-04-15 16:25 | NUR ---
Pt Dc'd to [facility]. tele-box removed and returned to tele-tech. Pt alert and oriented and vitals WNL upon DC. Per Dr. Gann Pt is stable to be DC'd to [facility]. DC paperwork printed out and gone over with Pt. Allowed Pt to ask questions concerning DC and then answered them. No new meds prescribed to Pt at DC. Pt's belongings gathered and sent with Pt. pt wheeled to [facility] in wheelchair by nurse. Pt transfered to [facility] unit and nurses received Pt for intake.
== END 2020-04-15 16:30 | disposition home or self-care (01) | DRG 775 ==
LOC: ER 11:20 → ED HOLD 04-05 01:39 → PCU 3S 04-05 15:42
PROVIDERS: ADMIT Internal Medicine Critical Care Medicine; ATTEND Internal Medicine Critical Care Medicine
DX: F10.231 Alcohol dependence with withdrawal delirium (principal); F33.3 Major depressive disorder, recurrent, severe with psychotic symptoms; R45.851 Suicidal ideations; D64.9 Anemia, unspecified; E87.6 Hypokalemia; E87.8 Other disorders of electrolyte and fluid balance, not elsewhere classified; F10.220 Alcohol dependence with intoxication, uncomplicated; I10 Essential (primary) hypertension; F12.90 Cannabis use, unspecified, uncomplicated; F41.9 Anxiety disorder, unspecified; W18.2XXA Fall in (into) shower or empty bathtub, initial encounter; R00.0 Tachycardia, unspecified; M54.5 Low back pain; Z80.0 Family history of malignant neoplasm of digestive organs; Z59.0 Homelessness; Z78.1 Physical restraint status; Z80.1 Family history of malignant neoplasm of trachea, bronchus and lung; Z80.42 Family history of malignant neoplasm of prostate; Z82.49 Family history of ischemic heart disease and other diseases of the circulatory system; Z81.8 Family history of other mental and behavioral disorders; Z79.899 Other long term (current) drug therapy; Y93.89 Activity, other specified; Y92.89 Other specified places as the place of occurrence of the external cause; Y99.8 Other external cause status
CPT/HCPCS: 36415; 72100; 80053; 80305; 80320; 82150; 82550; 82948; 83690; 83735; 84100; 84132; 84443; 85007; 85008; 85025; 85610; 93005; 96372; 97110; 97116; 97162; 97530; 99285; C9113; G0378; J1630; J1885; J2060; J2250; J3411; J3475; J3480; J3490; J7030; J7060; Q0177

== ENCOUNTER 2020-06-05 12:23 | Emergency (ER) | payer MEDICAID ==
[~2020-06-05] VITALS: Ht 185.4 cm; Wt 80.0 kg
[~2020-06-05 12:23] MED LIST changes: -CHLO25CA10 PO; +ESCI20TA45 PO; +FER325T PO; -FERR324T4 PO; +FOLI0.4T14 PO; -FOLI0.8C PO; +HYDR-3686 PO; -HYDR-4353 PO; +MULT-1085 PO; -MULT-25 PO; -ONDA4TAB6 PO; +PRAZ1CAP5 PO; +THIA100T66 PO; -THIA50TA10 PO; +TRAZ150T78 PO; -folic acid tablet PO; -thiamine tablet PO
[2020-06-05 13:22] LABS: BASOPHILS % (AUTO) 0.5 % (0-1); EOSINOPHILS % (AUTO) 0.3 % (0-6); HEMATOCRIT 29.3 % (42.0-52.0); HEMOGLOBIN 9.3 g/dl (14.0-17.9); LYMPHOCYTES # (AUTO) 0.5 X10'3 (1.1-4.8); LYMPHOCYTES % (AUTO) 7.8 % (21-51); MEAN CORPUSCULAR HEMOGLOBIN 28.2 PG (27.0-31.0); MEAN CORPUSCULAR HGB CONC 31.9 g/dL (33.0-36.5); MEAN CORPUSCULAR VOLUME 88.4 FL (78-98); MONOCYTES # (AUTO) 1.1 X10'3 (0-0.9); MONOCYTES % (AUTO) 16.2 % (2-12); NEUTROPHILS # (AUTO) 5.2 X10'3 (1.8-7.7); NEUTROPHILS % (AUTO) 75.2 % (42-75); PLATELET COUNT 160 X10'3 (140-440); RED BLOOD COUNT 3.31 X10'6 (4.70-6.10); RED CELL DISTRIBUTION WIDTH 22.7 % (11.5-14.5); WHITE BLOOD COUNT 6.9 X10'3 (4.5-11.0)
[2020-06-05 13:36] LABS: ALANINE AMINOTRANSFERASE 45 U/L (12-78); ALBUMIN 3.9 G/DL (3.4-5.0); ALBUMIN/GLOBULIN RATIO 0.9 (1.1-1.5); ALKALINE PHOSPHATASE 69 IU/L (46-116); ANION GAP 18 (8-16); ASPARTATE AMINO TRANSFERASE 266 U/L (10-37); BILIRUBIN,TOTAL 0.6 MG/DL (0.1-1.0); BLOOD UREA NITROGEN 8 MG/DL (7-18); BUN/CREATININE RATIO 6.9 (5.4-32.0); CALCIUM 8.8 MG/DL (8.5-10.1); CHLORIDE 96 MMOL/L (99-107); CREATININE 1.16 MG/DL (0.60-1.10); GLUCOSE 99 MG/DL (70-104); POTASSIUM 3.4 MMOL/L (3.5-5.1); SODIUM 134 MMOL/L (135-145); TOTAL CARBON DIOXIDE 20.2 MMOL/L (24-32); TOTAL PROTEIN 8.1 G/DL (6.4-8.2); eGFR 73 ML/MIN
[2020-06-05 13:44] LABS: ANISOCYTOSIS 3+; ELLIPTOCYTES FEW; PLATELET ESTIMATE NORMAL
[2020-06-05 13:45] LABS: SCHISTOCYTES FEW; STOMATOCYTES 1+
[2020-06-05 13:46] LABS: ETHANOL < 0.010 GM/DL (0.0-0.010)
[2020-06-05] MEDS ORDERED: sucralfate 1gm/10ml UD suspension PO STA (14:40)
[2020-06-05] MEDS ORDERED: pantoprazole 40 MG vial IV ONE (14:40)
[2020-06-05 14:41] LABS: URINE AMPHETAMINE SCREEN NEGATIVE (Neg); URINE BARBITUATE SCREEN NEGATIVE (Neg); URINE BENZODIAZEPINES SCREEN NEGATIVE (Neg); URINE CANNABINOID SCREEN NEGATIVE (Neg); URINE COCAINE SCREEN NEGATIVE (Neg); URINE METHADONE SCREEN NEGATIVE (Neg); URINE OPIATE SCREEN NEGATIVE (Neg); URINE PHENCYCLIDINE SCREEN NEGATIVE (Neg)
[2020-06-05] MEDS ORDERED: LORazepam 2 mg/ml vial IV ONE (15:25)
--- NOTE | 2020-06-05 15:30 | NUR ---
GAVE CHICKEN BROTH AND JELLO, NO N/V. ASKING FOR SOLID FOOD.
[2020-06-05 15:35] LABS: CLARITY,URINE SLIGHTLY CLOUDY (Clear); COLOR,URINE YELLOW (Yellow); GLUCOSE, URINE NEGATIVE (Neg); KETONES,URINE >=80 mg/dl (Neg); LEUKOCYTE ESTERASE ,URINE NEGATIVE (Neg); NITRITES, URINE NEGATIVE (Neg); OCCULT BLOOD,URINE NEGATIVE (Neg); PROTEIN,URINE TRACE mg/dl (Neg)
--- NOTE | 2020-06-05 15:38 | NUR ---
pt c/o low back pain on scale 10/10. informed jarad otoole. no new orders at this time. pt just received ativan 1 mg iv
[2020-06-05 15:40] LABS: UA COLLECTION TYPE URINAL
[2020-06-05 15:47] LABS: MUCUS STRANDS MANY /LPF (Neg); SQUAMOUS EPITHELIAL CELL,UR FEW /LPF (FEW)
[2020-06-05 15:48] LABS: BACTERIA,URINE FEW /HPF (Neg); RBC,URINE 0-2 /HPF (0-2); WBC,URINE 0-4 /HPF (0-4)
[2020-06-05 20:45] VITALS: BP 126/94
== END 2020-06-05 20:51 ==
LOC: ER 12:24
DX: F32.9 Major depressive disorder, single episode, unspecified (principal); R45.851 Suicidal ideations; F12.90 Cannabis use, unspecified, uncomplicated; Z72.89 Other problems related to lifestyle; Z59.0 Homelessness; Z79.899 Other long term (current) drug therapy
CPT/HCPCS: 36415; 80053; 80305; 80320; 81001; 84443; 85008; 85025; 96374; 96375; 99285; C9113; J2060

== ENCOUNTER 2020-10-25 09:02 | Emergency (ER) | payer MEDICAID ==
[~2020-10-25] VITALS: Ht 185.4 cm; Wt 90.8 kg
[~2020-10-25 09:02] MED LIST changes: +ESCI20TA39 PO; -ESCI20TA45 PO
[2020-10-25 09:33] LABS: BASOPHILS % (AUTO) 0.5 % (0-1); EOSINOPHILS % (AUTO) 0.7 % (0-6); HEMATOCRIT 36.2 % (42.0-52.0); HEMOGLOBIN 11.2 g/dl (14.0-17.9); LYMPHOCYTES # (AUTO) 0.9 X10'3 (1.1-4.8); MEAN CORPUSCULAR HEMOGLOBIN 23.7 PG (27.0-31.0); MEAN CORPUSCULAR VOLUME 76.4 FL (78-98); MEAN PLATELET VOLUME 6.2 FL (7.4-10.4); MONOCYTES # (AUTO) 0.7 X10'3 (0-0.9); MONOCYTES % (AUTO) 11.4 % (2-12); NEUTROPHILS # (AUTO) 4.7 X10'3 (1.8-7.7); NEUTROPHILS % (AUTO) 73.4 % (42-75); PLATELET COUNT 269 X10'3 (140-440); RED BLOOD COUNT 4.74 X10'6 (4.70-6.10); RED CELL DISTRIBUTION WIDTH 22.2 % (11.5-14.5); WHITE BLOOD COUNT 6.4 X10'3 (4.5-11.0)
[2020-10-25 09:46] LABS: ALANINE AMINOTRANSFERASE 19 U/L (12-78); ALBUMIN 4.1 G/DL (3.4-5.0); ALBUMIN/GLOBULIN RATIO 0.9 (1.1-1.5); ALKALINE PHOSPHATASE 88 IU/L (46-116); ANION GAP 13 (8-16); ASPARTATE AMINO TRANSFERASE 76 U/L (10-37); BILIRUBIN,TOTAL 0.5 MG/DL (0.1-1.0); BLOOD UREA NITROGEN 6 MG/DL (7-18); BUN/CREATININE RATIO 6.9 (5.4-32.0); CALCIUM 8.7 MG/DL (8.5-10.1); CHLORIDE 100 MMOL/L (99-107); CREATININE 0.87 MG/DL (0.60-1.10); GLUCOSE 88 MG/DL (70-104); LIPASE 114 U/L (73-393); SODIUM 138 MMOL/L (135-145); TOTAL CARBON DIOXIDE 25.2 MMOL/L (24-32); TOTAL PROTEIN 8.7 G/DL (6.4-8.2); eGFR > 90 ML/MIN
[2020-10-25 10:22] LABS: ANISOCYTOSIS 3+; HYPOCHROMASIA 1+; MICROCYTOSIS 1+; PLATELET ESTIMATE NORMAL
[2020-10-25 10:34] LABS: ELLIPTOCYTES FEW; TARGET CELLS FEW
[2020-10-25] MEDS ORDERED: normal saline 1000ML IV soln IVB ONE (11:20)
[2020-10-25] MEDS ORDERED: thiamine 100mg/ml 2ml inj. IV ONE (11:20)
[2020-10-25] MEDS ORDERED: famotidine/PF 10 mg/ml inj IV ONE (11:20)
[2020-10-25] MEDS ORDERED: folic acid 1mg/0.2ml inj IV ONE (11:20)
[2020-10-25] MEDS ORDERED: metoclopramide 5 mg/ml inj IV ONE (11:20)
[2020-10-25 11:25] LABS: CLARITY,URINE CLEAR (Clear); COLOR,URINE YELLOW (Yellow); GLUCOSE, URINE NEGATIVE (Neg); KETONES,URINE 15 mg/dl (Neg); LEUKOCYTE ESTERASE ,URINE NEGATIVE (Neg); NITRITES, URINE NEGATIVE (Neg); OCCULT BLOOD,URINE TRACE-INTACT (Neg); PH,URINE 5.5 (4.8-8.0); PROTEIN,URINE NEGATIVE (Neg); UROBILINOGEN,URINE 0.2 E.U/dL (0.2-1.0)
[2020-10-25 11:31] LABS: UA COLLECTION TYPE CLN CATCH MIDSTREAM
[2020-10-25 11:36] LABS: BACTERIA,URINE NONE SEEN /HPF (Neg); MUCUS STRANDS FEW /LPF (Neg); RBC,URINE 0-2 /HPF (0-2); SQUAMOUS EPITHELIAL CELL,UR FEW /LPF (FEW); WBC,URINE NONE SEEN /HPF (0-4)
[2020-10-25] MEDS ORDERED: morphine 4 MG/ML inj SYRINge IV ONE ×2 (13:05→15:45)
[2020-10-25] MEDS ORDERED: ketorolac trometh. 30mg/ml inj. IV ONE (14:20)
[2020-10-25] MEDS ORDERED: mag hydrox/Alum hydrox/simeth 30ml oral suspension PO ONE (14:20)
[2020-10-25] MEDS ORDERED: LIDOcaine Viscous 15ml cup MM ONE (14:20)
[2020-10-25] MEDS ORDERED: LORazepam 2 mg/ml vial IV ONE (14:20)
[2020-10-25] MEDS ORDERED: sucralfate 1gm/10ml UD suspension PO ONE (14:20)
[2020-10-25] MEDS ORDERED: DICY10CA88 PO (14:22)
[2020-10-25] MEDS ORDERED: PANT-47 PO (14:22)
[2020-10-25] MEDS ORDERED: ONDA4TAB6 PO (14:22)
[2020-10-25 15:25] VITALS: BP 150/84
== END 2020-10-25 15:59 | disposition home or self-care (01) ==
LOC: ER 09:03
DX: K29.70 Gastritis, unspecified, without bleeding (principal); K29.80 Duodenitis without bleeding; R07.89 Other chest pain; K92.0 Hematemesis; F12.90 Cannabis use, unspecified, uncomplicated; Z79.899 Other long term (current) drug therapy; Z56.0 Unemployment, unspecified; Z72.89 Other problems related to lifestyle
CPT/HCPCS: 71045; 80053; 81001; 83690; 85008; 85025; 93005; 96361; 96374; 96375; 96376; 99285; J1885; J2270; J2765; J3411; J3490; J7030

== ENCOUNTER 2020-12-01 09:19 | Emergency (ER) | payer MEDICAID ==
[~2020-12-01] VITALS: Ht 185.4 cm; Wt 86.4 kg
[~2020-12-01 09:19] MED LIST changes: +DICY10CA88 PO; -ESCI20TA39 PO; -FER325T PO; -FOLI0.4T14 PO; -HYDR-3686 PO; +HYDR-3965 PO; +MINO100T PO; -MULT-1085 PO; +ONDA4TAB6 PO; -PRAZ1CAP5 PO; -THIA100T66 PO; -TRAZ150T78 PO
[2020-12-01 10:06] LABS: LYMPHOCYTES # (AUTO) 0.9 X10'3 (1.1-4.8); MONOCYTES # (AUTO) 1.2 X10'3 (0-0.9)
[2020-12-01 10:07] LABS: BASOPHILS # (AUTO) 0.2 X10'3 (0-0.2); BASOPHILS % (AUTO) 2.7 % (0-1); EOSINOPHILS % (AUTO) 0.4 % (0-6); HEMOGLOBIN 11.4 g/dl (14.0-17.9); LYMPHOCYTES % (AUTO) 14.5 % (21-51); MEAN CORPUSCULAR HEMOGLOBIN 26.2 PG (27.0-31.0); MEAN CORPUSCULAR HGB CONC 31.8 g/dL (33.0-36.5); MEAN CORPUSCULAR VOLUME 82.4 FL (78-98); MEAN PLATELET VOLUME 6.5 FL (7.4-10.4); MONOCYTES % (AUTO) 19.9 % (2-12); NEUTROPHILS # (AUTO) 3.8 X10'3 (1.8-7.7); NEUTROPHILS % (AUTO) 62.5 % (42-75); PLATELET COUNT 897 X10'3 (140-440); RED BLOOD COUNT 4.37 X10'6 (4.70-6.10); RED CELL DISTRIBUTION WIDTH 24.8 % (11.5-14.5); WHITE BLOOD COUNT 6.1 X10'3 (4.5-11.0)
[2020-12-01 10:19] LABS: ALANINE AMINOTRANSFERASE 29 U/L (12-78); ALBUMIN 3.8 G/DL (3.4-5.0); ALBUMIN/GLOBULIN RATIO 0.8 (1.1-1.5); ALKALINE PHOSPHATASE 93 IU/L (46-116); AMYLASE 103 U/L (25-115); ANION GAP 16 (8-16); ASPARTATE AMINO TRANSFERASE 57 U/L (10-37); BILIRUBIN,TOTAL 0.3 MG/DL (0.1-1.0); BLOOD UREA NITROGEN 7 MG/DL (7-18); BUN/CREATININE RATIO 6.5 (5.4-32.0); CHLORIDE 98 MMOL/L (99-107); CREATININE 1.07 MG/DL (0.60-1.10); GLUCOSE 100 MG/DL (70-104); LIPASE 350 U/L (73-393); POTASSIUM 4.3 MMOL/L (3.5-5.1); SODIUM 138 MMOL/L (135-145); TOTAL CARBON DIOXIDE 24.1 MMOL/L (24-32); TOTAL PROTEIN 8.4 G/DL (6.4-8.2); eGFR 81 ML/MIN
[2020-12-01 10:27] LABS: ANISOCYTOSIS 3+; HYPOCHROMASIA 2+; PLATELET ESTIMATE INCREASED; TOTAL CELLS COUNTED 100
[2020-12-01] MEDS ORDERED: morphine 4 MG/ML inj SYRINge IV ONE (11:10)
[2020-12-01] MEDS ORDERED: LORazepam 2 mg/ml vial IV ONE ×2 (11:10→12:30)
[2020-12-01] MEDS ORDERED: normal saline 1000ML IV soln IVB ONE (11:10)
[2020-12-01] MEDS ORDERED: famotidine/PF 10 mg/ml inj IV ONE (11:10)
[2020-12-01] MEDS ORDERED: sucralfate 1gm/10ml UD suspension PO STA (11:11)
[2020-12-01] MEDS ORDERED: mag hydrox/Alum hydrox/simeth 30ml oral suspension PO ONE (11:15)
[2020-12-01] MEDS ORDERED: LIDOcaine Viscous 15ml cup MM ONE (11:15)
[2020-12-01] MEDS ORDERED: folic acid 1mg/0.2ml inj IV ONE (11:20)
[2020-12-01] MEDS ORDERED: thiamine 100mg/ml 2ml inj. IV ONE (11:20)
[2020-12-01] MEDS ORDERED: ketorolac trometh. 30mg/ml inj. IV ONE (12:20)
[2020-12-01] MEDS ORDERED: CefTRIAXone/D5W-Rocephin 1gm 50 ML IV ONE (12:20)
[2020-12-01] MEDS ORDERED: AMOX-422 PO (12:31)
[2020-12-01] MEDS ORDERED: HYDR-3965 PO (12:31)
[2020-12-01] MEDS ORDERED: LORA-269 PO (12:31)
[2020-12-01 18:34] VITALS: BP 146/101
[2020-12-02] MEDS ORDERED: ONDA-103 PO (20:31)
[2020-12-02] MEDS ORDERED: HYDR-3964 PO (20:31)
== END 2020-12-01 15:40 | disposition home or self-care (01) ==
LOC: ER 09:20
DX: K52.9 Noninfective gastroenteritis and colitis, unspecified (principal); F10.20 Alcohol dependence, uncomplicated; R10.30 Lower abdominal pain, unspecified; R11.2 Nausea with vomiting, unspecified; F17.200 Nicotine dependence, unspecified, uncomplicated; F12.90 Cannabis use, unspecified, uncomplicated; Z72.89 Other problems related to lifestyle; Z60.2 Problems related to living alone; Z59.0 Homelessness; Z79.2 Long term (current) use of antibiotics; Z79.899 Other long term (current) drug therapy; Y90.9 Presence of alcohol in blood, level not specified
CPT/HCPCS: 74176; 80053; 82150; 83690; 85007; 85025; 96361; 96365; 96366; 96375; 96376; 99284; J0696; J1885; J2060; J2270; J3411; J3490; J7030; 96374

== ENCOUNTER 2020-12-02 07:09 | Inpatient (IN) | payer MEDICAID ==
[~2020-12-02] VITALS: Ht 185.4 cm; Wt 86.4 kg
[~2020-12-02 07:09] MED LIST changes: +AMOX-422 PO; +LORA-269 PO
[2020-12-02] MEDS ORDERED: ondansetron/PF 4mg/2ml inj IV ONE (07:35)
[2020-12-02] MEDS ORDERED: normal saline 1000ml 1,000 ML IV ONE (07:35)
[2020-12-02] MEDS ORDERED: piperacillin/tazo 3.375gm/50ml 50 ML IV ONE (07:35)
[2020-12-02] MEDS ORDERED: hydrOXYzine 25 MG tablet PO ONE (08:10)
[2020-12-02] MEDS ORDERED: ketorolac tromethamine 15mg/ml inj. IV ONE (08:15)
[2020-12-02 08:30] LABS: CLARITY,URINE CLEAR (Clear); COLOR,URINE YELLOW (Yellow); GLUCOSE, URINE NEGATIVE (Neg); KETONES,URINE NEGATIVE (Neg); LEUKOCYTE ESTERASE ,URINE NEGATIVE (Neg); NITRITES, URINE NEGATIVE (Neg); OCCULT BLOOD,URINE NEGATIVE (Neg); PROTEIN,URINE NEGATIVE (Neg); UROBILINOGEN,URINE 0.2 E.U/dL (0.2-1.0)
[2020-12-02 08:32] LABS: BASOPHILS # (AUTO) 0.1 X10'3 (0-0.2); BASOPHILS % (AUTO) 1.5 % (0-1); EOSINOPHILS % (AUTO) 0.5 % (0-6); HEMATOCRIT 35.7 % (42.0-52.0); HEMOGLOBIN 11.4 g/dl (14.0-17.9); LYMPHOCYTES # (AUTO) 0.7 X10'3 (1.1-4.8); LYMPHOCYTES % (AUTO) 10.9 % (21-51); MEAN CORPUSCULAR HEMOGLOBIN 26.4 PG (27.0-31.0); MEAN CORPUSCULAR HGB CONC 31.9 g/dL (33.0-36.5); MEAN CORPUSCULAR VOLUME 82.8 FL (78-98); MEAN PLATELET VOLUME 6.9 FL (7.4-10.4); MONOCYTES % (AUTO) 16.3 % (2-12); NEUTROPHILS # (AUTO) 4.5 X10'3 (1.8-7.7); NEUTROPHILS % (AUTO) 70.8 % (42-75); PLATELET COUNT 831 X10'3 (140-440); RED BLOOD COUNT 4.31 X10'6 (4.70-6.10); RED CELL DISTRIBUTION WIDTH 24.6 % (11.5-14.5); WHITE BLOOD COUNT 6.4 X10'3 (4.5-11.0)
[2020-12-02 08:39] LABS: ALANINE AMINOTRANSFERASE 11 U/L (12-78); ALBUMIN 3.8 G/DL (3.4-5.0); ALBUMIN/GLOBULIN RATIO 0.8 (1.1-1.5); ALKALINE PHOSPHATASE 95 IU/L (46-116); ANION GAP 13 (8-16); ASPARTATE AMINO TRANSFERASE 39 U/L (10-37); BILIRUBIN,TOTAL 0.5 MG/DL (0.1-1.0); BLOOD UREA NITROGEN 8 MG/DL (7-18); BUN/CREATININE RATIO 7.8 (5.4-32.0); CALCIUM 8.9 MG/DL (8.5-10.1); CHLORIDE 100 MMOL/L (99-107); CREATININE 1.03 MG/DL (0.60-1.10); GLUCOSE 101 MG/DL (70-104); POTASSIUM 3.9 MMOL/L (3.5-5.1); SODIUM 140 MMOL/L (135-145); TOTAL CARBON DIOXIDE 26.7 MMOL/L (24-32); TOTAL PROTEIN 8.3 G/DL (6.4-8.2); eGFR 84 ML/MIN
[2020-12-02 08:39] LABS: UA COLLECTION TYPE URINAL; URINE AMPHETAMINE SCREEN NEGATIVE (Neg); URINE BARBITUATE SCREEN NEGATIVE (Neg); URINE BENZODIAZEPINES SCREEN POSITIVE (Neg); URINE CANNABINOID SCREEN NEGATIVE (Neg); URINE COCAINE SCREEN NEGATIVE (Neg); URINE METHADONE SCREEN NEGATIVE (Neg); URINE OPIATE SCREEN NEGATIVE (Neg); URINE PHENCYCLIDINE SCREEN NEGATIVE (Neg)
[2020-12-02 08:49] LABS: ETHANOL < 0.010 GM/DL (0.0-0.010); LIPASE 437 U/L (73-393)
[2020-12-02] MEDS ORDERED: fentaNYL/PF 50MCG/1 ML 2ML syringe IV ONE (09:15)
[2020-12-02] MEDS ORDERED: chlordiazePOXIDE 25mg capsule PO ONE (09:15)
--- NOTE | 2020-12-02 11:00 | NUR ---
Received pt from ER main around 1010. Pt c/o internal stimuli and anxiety initially and then did c/o of some returning abdominal pain. paged, no return call yet. Pt now sleeping on and off without complaints for about 45 minutes.
[2020-12-02] MEDS ORDERED: OLANZapine 5mg rapidly disint. tablet PO ONE (11:40)
[2020-12-02 12:58] LABS: ANISOCYTOSIS 3+; PLATELET ESTIMATE INCREASED; TOTAL CELLS COUNTED 100
[2020-12-02 12:59] LABS: HYPOCHROMASIA 1+; STOMATOCYTES 1+
[2020-12-02 13:00] LABS: LARGE PLATELETS FEW
--- NOTE | 2020-12-02 13:00 | NUR ---
Patient sitting quietly in bed eating lunch. No signs/symptoms of distress.
--- NOTE | 2020-12-02 15:00 | NUR ---
Pt lying in bed. Pt now c/o anxiety and MD will be notified.
[2020-12-02] MEDS: hydrOXYzine 25 MG tablet PO PRN (16:07)
--- NOTE | 2020-12-02 17:00 | NUR ---
Pt accepted at [facility]. Pt since has had a BM with blood in it. Dr. Brown notified and he is ordering f/u tests.
[2020-12-02] MEDS: amox tr/potassium clavulanate 875/125mg TAB PO SCH (17:36)
[2020-12-02 17:52] LABS: MEAN PLATELET VOLUME 6.7 FL (7.4-10.4); RED CELL DISTRIBUTION WIDTH 25.1 % (11.5-14.5)
[2020-12-02 17:53] LABS: HEMATOCRIT 34.1 % (42.0-52.0); HEMOGLOBIN 10.9 g/dl (14.0-17.9); MEAN CORPUSCULAR HEMOGLOBIN 26.3 PG (27.0-31.0); MEAN CORPUSCULAR VOLUME 82.3 FL (78-98); PLATELET COUNT 777 X10'3 (140-440); RED BLOOD COUNT 4.14 X10'6 (4.70-6.10); WHITE BLOOD COUNT 6.9 X10'3 (4.5-11.0)
--- NOTE | 2020-12-02 17:57 | NUR ---
Pt had another bloody BM. Dr. Alexander notified and he ordered abd u/s. TAD office and [facility] notified about d/c being put on hold pending further testing.
--- NOTE | 2020-12-02 19:00 | NUR ---
Pt lying in bed resting without complaints at this time.
[2020-12-02] MEDS ORDERED: pantoprazole 40 MG vial IV ONE (19:55)
--- NOTE | 2020-12-02 20:07 | NUR ---
Pt had another bloody BM. Dr. Bailey ordered hospitalist consult and ordered protonix IV push.
[2020-12-02 20:12] LABS: MAGNESIUM 2.2 MG/DL (1.5-2.4)
[2020-12-02] MEDS ORDERED: magnesium hydroxide 30ml (MOM) UD suspension PO PRN (20:20)
[2020-12-02] MEDS ORDERED: acetaminophen 325mg tablet PO PRN (20:20)
[2020-12-02] MEDS ORDERED: mag hydrox/Alum hydrox/simeth 30ml oral suspension PO PRN (20:20)
[2020-12-02] MEDS ORDERED: ondansetron/PF 4mg/2ml inj IV PRN (20:20)
[2020-12-02] MEDS ORDERED: ONDA-103 PO (20:31)
[2020-12-02] MEDS ORDERED: HYDR-3964 PO (20:31)
[2020-12-02 20:43] LABS: PARTIAL THROMBOPLASTIN TIME 31 SECONDS (22-32)
[2020-12-02] MEDS ORDERED: LORazepam 2 mg/ml vial IV PRN (20:55)
[2020-12-02] MEDS: normal saline 1000ml 1,000 ML IV SCH (21:01)
[2020-12-02] MEDS: morphine 2 MG/ML inj. syringe IV PRN (21:38)
[2020-12-02] MEDS: LORazepam 1 MG tablet PO PRN (22:23)
[2020-12-03] MEDS: morphine 2 MG/ML inj. syringe IV PRN ×3 (02:43→20:10)
[2020-12-03] MEDS: LORazepam 1 MG tablet PO PRN ×5 (02:47→22:50)
[2020-12-03] MEDS: normal saline 1000ml 1,000 ML IV SCH ×4 (02:59→23:55)
--- NOTE | 2020-12-03 06:30 | NUR ---
Patient requesting ativan and morphine, will administer medication when due.
[2020-12-03] MEDS: HYDROcodone/acetaminophen 5mg/325mg tablet PO PRN ×4 (06:56→22:31)
[2020-12-03] MEDS: amox tr/potassium clavulanate 875/125mg TAB PO SCH ×2 (08:12→18:47)
[2020-12-03] MEDS: thiamine 100mg tablet PO SCH (08:12)
[2020-12-03] MEDS: pantoprazole 40 MG vial IV SCH ×2 (08:12→20:23)
[2020-12-03] MEDS: folic acid 1mg tablet PO SCH (08:12)
[2020-12-03] MEDS ORDERED: DICY10CA88 PO (08:30)
[2020-12-03] MEDS ORDERED: PANT-47 PO (08:30)
[2020-12-03] MEDS ORDERED: NO HOME MEDS (08:47)
[2020-12-03] MEDS: metroNIDAZOLE-Flagyl 500mg/NS 100 ML IV SCH ×3 (09:40→23:48)
[2020-12-03 09:44] LABS: BASOPHILS # (AUTO) 0.1 X10'3 (0-0.2); EOSINOPHILS # (AUTO) 0.1 X10'3 (0-0.9); LYMPHOCYTES # (AUTO) 1.2 X10'3 (1.1-4.8); MONOCYTES # (AUTO) 0.9 X10'3 (0-0.9)
[2020-12-03 09:46] LABS: EOSINOPHILS % (AUTO) 1.3 % (0-6); HEMATOCRIT 35.3 % (42.0-52.0); LYMPHOCYTES % (AUTO) 19.1 % (21-51); MEAN CORPUSCULAR HGB CONC 31.3 g/dL (33.0-36.5); MEAN CORPUSCULAR VOLUME 83.2 FL (78-98); MEAN PLATELET VOLUME 6.6 FL (7.4-10.4); NEUTROPHILS # (AUTO) 3.9 X10'3 (1.8-7.7); NEUTROPHILS % (AUTO) 62.6 % (42-75); PLATELET COUNT 726 X10'3 (140-440); RED BLOOD COUNT 4.24 X10'6 (4.70-6.10); WHITE BLOOD COUNT 6.2 X10'3 (4.5-11.0)
[2020-12-03 10:03] LABS: ALANINE AMINOTRANSFERASE 18 U/L (12-78); ALBUMIN 3.3 G/DL (3.4-5.0); ALBUMIN/GLOBULIN RATIO 0.8 (1.1-1.5); ALKALINE PHOSPHATASE 86 IU/L (46-116); ANION GAP 8 (8-16); ASPARTATE AMINO TRANSFERASE 26 U/L (10-37); BILIRUBIN,TOTAL 0.4 MG/DL (0.1-1.0); BLOOD UREA NITROGEN 7 MG/DL (7-18); BUN/CREATININE RATIO 7.3 (5.4-32.0); CALCIUM 8.5 MG/DL (8.5-10.1); CHLORIDE 106 MMOL/L (99-107); CREATININE 0.96 MG/DL (0.60-1.10); GLUCOSE 94 MG/DL (70-104); LIPASE 291 U/L (73-393); MAGNESIUM 2.1 MG/DL (1.5-2.4); PHOSPHORUS 4.5 MG/DL (2.3-4.5); POTASSIUM 4.1 MMOL/L (3.5-5.1); SODIUM 143 MMOL/L (135-145); TOTAL CARBON DIOXIDE 28.7 MMOL/L (24-32); TOTAL PROTEIN 7.2 G/DL (6.4-8.2); eGFR > 90 ML/MIN
[2020-12-03 10:16] LABS: TOTAL CELLS COUNTED 100
[2020-12-03 10:17] LABS: ANISOCYTOSIS 3+; MICROCYTOSIS 1+; PLATELET ESTIMATE INCREASED
--- NOTE | 2020-12-03 10:31 | NUR ---
celia asleep, receiving flagyl piv,we will monitor.
--- NOTE | 2020-12-03 11:54 | NUR ---
patient awake,no noted change in behavior,remains in the room.
--- NOTE | 2020-12-03 12:19 | NUR ---
PATIENT ASKING FOR WATER. PER DR. TIM OK TO HAVE ICE CHIPS
--- NOTE | 2020-12-03 16:47 | NUR ---
Patient in room ED 3. I have received report from Ambar IRVIN and had the opportunity to ask questions and assume patient care.
[2020-12-03 17:15] VITALS: BP 131/89
[2020-12-03 18:00] VITALS: BP 133/82
--- NOTE | 2020-12-03 18:00 | NUR ---
Patient in room MED 313. I have received report from Mani IRVIN and had the opportunity to ask questions and assume patient care.
--- NOTE | 2020-12-03 18:30 | NUR ---
Problems reprioritized. Patient report given, questions answered & plan of care reviewed with Shala IRVIN.
[2020-12-03] MEDS: lactobacillus rhamnosus 10,000 MMU CELLS/CAPSULE PO SCH (20:24)
[2020-12-03 22:00] VITALS: BP 123/80
[2020-12-04 02:00] VITALS: BP 118/80
[2020-12-04] MEDS: hydrOXYzine 25 MG tablet PO PRN ×2 (02:02→19:21)
[2020-12-04] MEDS: temazepam 15mg capsule PO PRN ×2 (02:02→19:21)
--- NOTE | 2020-12-04 02:28 | NUR ---
PAGER ID: [phone] MESSAGE: Martina Wan [place]-Pain unrelieved with morphine 0.5 and [place] alternating. Patient requesting increase in dosage for pain. ACCE [id number]
[2020-12-04] MEDS: morphine 2 MG/ML inj. syringe IV PRN ×4 (02:47→19:20)
[2020-12-04] MEDS: HYDROcodone/acetaminophen 5mg/325mg tablet PO PRN ×4 (02:55→21:51)
[2020-12-04] MEDS: normal saline 1000ml 1,000 ML IV SCH ×4 (05:40→22:09)
[2020-12-04 06:06] VITALS: BP 154/93
--- NOTE | 2020-12-04 06:13 | NUR ---
Problems reprioritized. Patient report given, questions answered & plan of care reviewed with Mani IRVIN.
[2020-12-04 07:22] LABS: EOSINOPHILS # (AUTO) 0.1 X10'3 (0-0.9); LYMPHOCYTES # (AUTO) 1.5 X10'3 (1.1-4.8); MEAN PLATELET VOLUME 6.8 FL (7.4-10.4); WHITE BLOOD COUNT 6.1 X10'3 (4.5-11.0)
[2020-12-04 07:24] LABS: ALANINE AMINOTRANSFERASE 19 U/L (12-78); ALBUMIN 3.1 G/DL (3.4-5.0); ALBUMIN/GLOBULIN RATIO 0.8 (1.1-1.5); ALKALINE PHOSPHATASE 72 IU/L (46-116); ANION GAP 9 (8-16); ASPARTATE AMINO TRANSFERASE 20 U/L (10-37); BASOPHILS # (AUTO) 0.2 X10'3 (0-0.2); BASOPHILS % (AUTO) 2.6 % (0-1); BILIRUBIN,TOTAL 0.3 MG/DL (0.1-1.0); CALCIUM 8.3 MG/DL (8.5-10.1); CHLORIDE 105 MMOL/L (99-107); CREATININE 0.94 MG/DL (0.60-1.10); EOSINOPHILS % (AUTO) 1.7 % (0-6); GLUCOSE 89 MG/DL (70-104); HEMATOCRIT 31.4 % (42.0-52.0); LIPASE 178 U/L (73-393); LYMPHOCYTES % (AUTO) 23.9 % (21-51); MAGNESIUM 1.8 MG/DL (1.5-2.4); MEAN CORPUSCULAR HEMOGLOBIN 26.6 PG (27.0-31.0); MEAN CORPUSCULAR HGB CONC 31.9 g/dL (33.0-36.5); MEAN CORPUSCULAR VOLUME 83.4 FL (78-98); MONOCYTES # (AUTO) 0.7 X10'3 (0-0.9); MONOCYTES % (AUTO) 11.6 % (2-12); NEUTROPHILS # (AUTO) 3.7 X10'3 (1.8-7.7); NEUTROPHILS % (AUTO) 60.2 % (42-75); PHOSPHORUS 4.9 MG/DL (2.3-4.5); PLATELET COUNT 722 X10'3 (140-440); POTASSIUM 3.7 MMOL/L (3.5-5.1); RED BLOOD COUNT 3.77 X10'6 (4.70-6.10); RED CELL DISTRIBUTION WIDTH 24.9 % (11.5-14.5); SODIUM 142 MMOL/L (135-145); TOTAL CARBON DIOXIDE 28.3 MMOL/L (24-32); TOTAL PROTEIN 6.8 G/DL (6.4-8.2); eGFR > 90 ML/MIN
[2020-12-04 07:29] LABS: BUN/CREATININE RATIO 2.1 (5.4-32.0)
[2020-12-04 07:30] LABS: BLOOD UREA NITROGEN 2 MG/DL (7-18)
[2020-12-04] MEDS: pantoprazole 40 MG vial IV SCH ×2 (07:55→19:22)
[2020-12-04] MEDS: metroNIDAZOLE-Flagyl 500mg/NS 100 ML IV SCH ×2 (07:55→15:13)
[2020-12-04] MEDS: lactobacillus rhamnosus 10,000 MMU CELLS/CAPSULE PO SCH ×2 (07:55→19:21)
[2020-12-04] MEDS: folic acid 1mg tablet PO SCH (07:55)
[2020-12-04] MEDS: amox tr/potassium clavulanate 875/125mg TAB PO SCH ×2 (07:55→17:53)
[2020-12-04] MEDS: thiamine 100mg tablet PO SCH (07:55)
[2020-12-04 09:16] LABS: ANISOCYTOSIS 3+; HYPOCHROMASIA 1+; PLATELET ESTIMATE INCREASED; POLYCHROMASIA FEW
[2020-12-04 09:17] LABS: STOMATOCYTES 1+; TEAR DROP CELLS FEW
[2020-12-04] MEDS: LORazepam 1 MG tablet PO PRN ×3 (10:37→19:20)
[2020-12-04 11:16] LABS: OCCULT BLOOD STOOL POSITIVE (Neg)
[2020-12-04 11:57] VITALS: BP 116/70
--- NOTE | 2020-12-04 14:25 | NUR ---
Malnutrition consult: Pt reports 14-23 lb wt loss with decreased appetite per malnutrition risk screen with RN. Patient's current documented wt is stable with documented scaled wt hx in EMR. Pt appears to have a good appetite as pt with 100% PO intake on a clear liquid diet and requesting additional food per show jumping instructor. Pt with no documented significant decrease in muscle strength or edema. Pt currently lacks a minimum of two criteria for malnutrition. Will continue to follow. Addendum: 12/04/20 at [address] Amended: Links added.
[2020-12-04 14:40] VITALS: BP 117/68
[2020-12-04 18:00] VITALS: BP 129/71
[2020-12-04 22:00] VITALS: BP 153/87
[2020-12-05] MEDS: morphine 2 MG/ML inj. syringe IV PRN ×5 (00:05→19:29)
[2020-12-05] MEDS: metroNIDAZOLE-Flagyl 500mg/NS 100 ML IV SCH ×4 (00:05→23:52)
[2020-12-05] MEDS: HYDROcodone/acetaminophen 5mg/325mg tablet PO PRN ×6 (01:24→22:33)
[2020-12-05] MEDS: LORazepam 1 MG tablet PO PRN ×5 (01:24→19:30)
[2020-12-05 02:00] VITALS: BP 111/59
[2020-12-05 06:00] VITALS: BP 127/87
--- NOTE | 2020-12-05 06:19 | NUR ---
Problems reprioritized. Patient report given, questions answered & plan of care reviewed with SANJUANA IRVIN.
--- NOTE | 2020-12-05 06:20 | NUR ---
Patient in room MED 313. I have received report from john henderson and had the opportunity to ask questions and assume patient care.
[2020-12-05 06:44] LABS: MEAN PLATELET VOLUME 6.6 FL (7.4-10.4)
[2020-12-05 06:45] LABS: HEMATOCRIT 31.8 % (42.0-52.0); MEAN CORPUSCULAR HEMOGLOBIN 26.4 PG (27.0-31.0); MEAN CORPUSCULAR HGB CONC 31.4 g/dL (33.0-36.5); MEAN CORPUSCULAR VOLUME 84.1 FL (78-98); PLATELET COUNT 671 X10'3 (140-440); RED BLOOD COUNT 3.78 X10'6 (4.70-6.10); RED CELL DISTRIBUTION WIDTH 24.5 % (11.5-14.5); WHITE BLOOD COUNT 6.2 X10'3 (4.5-11.0)
[2020-12-05 06:57] LABS: ALANINE AMINOTRANSFERASE 11 U/L (12-78); ALBUMIN 2.9 G/DL (3.4-5.0); ALBUMIN/GLOBULIN RATIO 0.8 (1.1-1.5); ALKALINE PHOSPHATASE 64 IU/L (46-116); ANION GAP 9 (8-16); ASPARTATE AMINO TRANSFERASE 15 U/L (10-37); BILIRUBIN,TOTAL 0.3 MG/DL (0.1-1.0); BLOOD UREA NITROGEN 2 MG/DL (7-18); BUN/CREATININE RATIO 2.2 (5.4-32.0); CALCIUM 8.3 MG/DL (8.5-10.1); CHLORIDE 108 MMOL/L (99-107); CREATININE 0.93 MG/DL (0.60-1.10); GLUCOSE 94 MG/DL (70-104); LIPASE 112 U/L (73-393); MAGNESIUM 1.8 MG/DL (1.5-2.4); PHOSPHORUS 4.8 MG/DL (2.3-4.5); POTASSIUM 3.6 MMOL/L (3.5-5.1); SODIUM 144 MMOL/L (135-145); TOTAL PROTEIN 6.4 G/DL (6.4-8.2); eGFR > 90 ML/MIN
[2020-12-05 07:04] LABS: ANISOCYTOSIS 3+; HYPOCHROMASIA 1+; PLATELET ESTIMATE INCREASED; POLYCHROMASIA 1+; STOMATOCYTES 1+; TARGET CELLS FEW; TOTAL CELLS COUNTED 100
[2020-12-05] MEDS: pantoprazole 40 MG vial IV SCH ×2 (08:22→19:30)
[2020-12-05] MEDS: thiamine 100mg tablet PO SCH (08:22)
[2020-12-05] MEDS: folic acid 1mg tablet PO SCH (08:22)
[2020-12-05] MEDS: lactobacillus rhamnosus 10,000 MMU CELLS/CAPSULE PO SCH ×2 (08:22→19:30)
[2020-12-05] MEDS: normal saline 1000ml 1,000 ML IV SCH ×3 (08:30→23:53)
[2020-12-05] MEDS: amox tr/potassium clavulanate 875/125mg TAB PO SCH (08:43)
[2020-12-05 11:00] VITALS: BP 145/95
[2020-12-05 15:00] VITALS: BP 133/84
[2020-12-05] MEDS ORDERED: PEG 3350/Na sulf,bicarb,Cl/KCl oral sol 4 liter bottle PO ONE (16:10)
--- NOTE | 2020-12-05 18:18 | NUR ---
Patient in room MED 313. I have received report from SANJUANA IRVIN and had the opportunity to ask questions and assume patient care.
--- NOTE | 2020-12-05 18:22 | NUR ---
Problems reprioritized. Patient report given, questions answered & plan of care reviewed with BRANDEE RIZVI.
[2020-12-05] MEDS: ciprofloxacin lact 400MG/200ML 200 ML IV SCH (19:30)
[2020-12-05 22:00] VITALS: BP 120/81
[2020-12-05] MEDS: temazepam 15mg capsule PO PRN (22:32)
[2020-12-06] VITALS (10 sets, daily range): BP systolic 110–150; BP diastolic 75–102
[2020-12-06] MEDS: normal saline 1000ml 1,000 ML IV SCH ×3 (04:20→17:52)
[2020-12-06] MEDS: HYDROcodone/acetaminophen 5mg/325mg tablet PO PRN ×4 (04:47→22:14)
--- NOTE | 2020-12-06 04:51 | NUR ---
PAGER ID: [phone] MESSAGE: [id number]-FRACISCO MARS-MAY WE RENEW ATIVAN PO/IV ORDERS FOR ETOH WITHDRAWL? STAR, [id number] Addendum: 12/06/20 at 0452 by Shala Lal RN MD HERNANDEZ STATED YES, RENEW ORDERS X 1 DAY
[2020-12-06] MEDS: LORazepam 1 MG tablet PO PRN ×6 (05:13→21:09)
[2020-12-06 06:12] LABS: BASOPHILS # (AUTO) 0.1 X10'3 (0-0.2); EOSINOPHILS # (AUTO) 0.2 X10'3 (0-0.9); EOSINOPHILS % (AUTO) 2.8 % (0-6); HEMOGLOBIN 10.6 g/dl (14.0-17.9); LYMPHOCYTES # (AUTO) 1.4 X10'3 (1.1-4.8); MONOCYTES # (AUTO) 0.9 X10'3 (0-0.9); WHITE BLOOD COUNT 7.1 X10'3 (4.5-11.0)
--- NOTE | 2020-12-06 06:12 | NUR ---
Patient in room MED 313. I have received report from Sabi IRVIN and had the opportunity to ask questions and assume patient care.
[2020-12-06 06:14] LABS: BASOPHILS % (AUTO) 1.1 % (0-1); HEMATOCRIT 33.2 % (42.0-52.0); LYMPHOCYTES % (AUTO) 20.2 % (21-51); MEAN CORPUSCULAR HEMOGLOBIN 26.6 PG (27.0-31.0); MEAN CORPUSCULAR VOLUME 83.1 FL (78-98); MEAN PLATELET VOLUME 6.5 FL (7.4-10.4); MONOCYTES % (AUTO) 12.1 % (2-12); NEUTROPHILS # (AUTO) 4.5 X10'3 (1.8-7.7); NEUTROPHILS % (AUTO) 63.8 % (42-75); PLATELET COUNT 754 X10'3 (140-440); RED CELL DISTRIBUTION WIDTH 25.1 % (11.5-14.5)
--- NOTE | 2020-12-06 06:20 | NUR ---
Patient in room MED 313. I have received report from john henderson and had the opportunity to ask questions and assume patient care.
[2020-12-06 06:29] LABS: ALANINE AMINOTRANSFERASE 17 U/L (12-78); ALBUMIN 3.4 G/DL (3.4-5.0); ALBUMIN/GLOBULIN RATIO 0.9 (1.1-1.5); ALKALINE PHOSPHATASE 67 IU/L (46-116); ANION GAP 9 (8-16); ASPARTATE AMINO TRANSFERASE 23 U/L (10-37); BILIRUBIN,TOTAL 0.3 MG/DL (0.1-1.0); BLOOD UREA NITROGEN 2 MG/DL (7-18); BUN/CREATININE RATIO 1.9 (5.4-32.0); CALCIUM 8.5 MG/DL (8.5-10.1); CHLORIDE 106 MMOL/L (99-107); CREATININE 1.05 MG/DL (0.60-1.10); GLUCOSE 93 MG/DL (70-104); LIPASE 112 U/L (73-393); MAGNESIUM 1.8 MG/DL (1.5-2.4); POTASSIUM 3.4 MMOL/L (3.5-5.1); SODIUM 143 MMOL/L (135-145); TOTAL CARBON DIOXIDE 28.5 MMOL/L (24-32); TOTAL PROTEIN 7.3 G/DL (6.4-8.2); eGFR 82 ML/MIN
[2020-12-06] MEDS: ciprofloxacin lact 400MG/200ML 200 ML IV SCH ×2 (07:23→19:52)
[2020-12-06] MEDS: pantoprazole 40 MG vial IV SCH ×2 (07:30→19:49)
[2020-12-06] MEDS: lactobacillus rhamnosus 10,000 MMU CELLS/CAPSULE PO SCH ×2 (08:00→19:49)
[2020-12-06] MEDS: folic acid 1mg tablet PO SCH (08:00)
[2020-12-06] MEDS: thiamine 100mg tablet PO SCH (08:00)
[2020-12-06] MEDS: metroNIDAZOLE-Flagyl 500mg/NS 100 ML IV SCH ×3 (08:30→23:44)
[2020-12-06] MEDS: morphine 2 MG/ML inj. syringe IV PRN ×3 (09:19→19:51)
[2020-12-06 10:37] LABS: PLATELET ESTIMATE INCREASED
[2020-12-06 10:38] LABS: ANISOCYTOSIS 3+
[2020-12-06 10:39] LABS: ELLIPTOCYTES FEW
[2020-12-06] MEDS ORDERED: magnesium 4gm in 100ml NS 100 ML IV PRN (11:50)
[2020-12-06] MEDS ORDERED: potassium Cl 20 mEq SR tablet PO PRN ×2 (11:50)
[2020-12-06] MEDS ORDERED: magnesium Cl slow-release 64mg tablet PO PRN (11:50)
[2020-12-06] MEDS ORDERED: potassium Cl 40MEQ/1/2NS 520ml 520 ML IV PRN (11:50)
[2020-12-06] MEDS ORDERED: fentaNYL/PF 50MCG/1 ML 2ML syringe ONE (15:16)
[2020-12-06] MEDS ORDERED: MIDAZolam 1 MG/ML 5ML VIAL ONE (15:16)
[2020-12-06] MEDS: dicyclomine 10 MG capsule PO PRN (17:10)
--- NOTE | 2020-12-06 18:02 | NUR ---
Problems reprioritized. Patient report given, questions answered & plan of care reviewed with .john mcdowell
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
[2020-12-06] MEDS: K and/or MAG REPLACEMENT MC SCH (19:54)
[2020-12-07] MEDS: normal saline 1000ml 1,000 ML IV SCH ×2 (01:01→07:50)
[2020-12-07] MEDS: morphine 2 MG/ML inj. syringe IV PRN ×3 (01:15→19:15)
[2020-12-07 02:00] VITALS: BP 118/77
[2020-12-07] MEDS: HYDROcodone/acetaminophen 5mg/325mg tablet PO PRN ×4 (04:50→23:31)
[2020-12-07 06:00] VITALS: BP 148/98
[2020-12-07 06:09] LABS: BASOPHILS # (AUTO) 0.1 X10'3 (0-0.2); BASOPHILS % (AUTO) 1.2 % (0-1); EOSINOPHILS # (AUTO) 0.2 X10'3 (0-0.9); EOSINOPHILS % (AUTO) 3.9 % (0-6); HEMATOCRIT 29.6 % (42.0-52.0); HEMOGLOBIN 9.4 g/dl (14.0-17.9); LYMPHOCYTES # (AUTO) 1.4 X10'3 (1.1-4.8); LYMPHOCYTES % (AUTO) 24.5 % (21-51); MEAN CORPUSCULAR HEMOGLOBIN 26.4 PG (27.0-31.0); MEAN CORPUSCULAR HGB CONC 31.7 g/dL (33.0-36.5); MEAN CORPUSCULAR VOLUME 83.2 FL (78-98); MEAN PLATELET VOLUME 6.6 FL (7.4-10.4); MONOCYTES # (AUTO) 0.8 X10'3 (0-0.9); MONOCYTES % (AUTO) 14.4 % (2-12); NEUTROPHILS # (AUTO) 3.2 X10'3 (1.8-7.7); PLATELET COUNT 580 X10'3 (140-440); RED BLOOD COUNT 3.56 X10'6 (4.70-6.10); RED CELL DISTRIBUTION WIDTH 24.5 % (11.5-14.5); WHITE BLOOD COUNT 5.7 X10'3 (4.5-11.0)
--- NOTE | 2020-12-07 06:20 | NUR ---
Patient in room MED 313. I have received report from john mcdowell and had the opportunity to ask questions and assume patient care.
--- NOTE | 2020-12-07 06:30 | NUR ---
Problems reprioritized. Patient report given, questions answered & plan of care reviewed with BRANDEE Charles.
[2020-12-07 06:36] LABS: ALANINE AMINOTRANSFERASE 14 U/L (12-78); ALBUMIN/GLOBULIN RATIO 0.9 (1.1-1.5); ALKALINE PHOSPHATASE 59 IU/L (46-116); ANION GAP 7 (8-16); ASPARTATE AMINO TRANSFERASE 19 U/L (10-37); BILIRUBIN,TOTAL 0.1 MG/DL (0.1-1.0); BLOOD UREA NITROGEN 6 MG/DL (7-18); BUN/CREATININE RATIO 5.4 (5.4-32.0); CALCIUM 8.3 MG/DL (8.5-10.1); CHLORIDE 107 MMOL/L (99-107); CREATININE 1.12 MG/DL (0.60-1.10); GLUCOSE 111 MG/DL (70-104); LIPASE 169 U/L (73-393); MAGNESIUM 1.8 MG/DL (1.5-2.4); PHOSPHORUS 4.7 MG/DL (2.3-4.5); POTASSIUM 4.1 MMOL/L (3.5-5.1); SODIUM 142 MMOL/L (135-145); TOTAL CARBON DIOXIDE 27.8 MMOL/L (24-32); TOTAL PROTEIN 6.5 G/DL (6.4-8.2); eGFR 76 ML/MIN
[2020-12-07 06:56] LABS: LARGE PLATELETS FEW; PLATELET ESTIMATE INCREASED
[2020-12-07 06:57] LABS: ANISOCYTOSIS 3+
[2020-12-07] MEDS: pantoprazole 40 MG vial IV SCH (07:41)
[2020-12-07] MEDS: metroNIDAZOLE-Flagyl 500mg/NS 100 ML IV SCH (07:45)
[2020-12-07] MEDS: dicyclomine 10 MG capsule PO PRN (07:46)
[2020-12-07] MEDS: lactobacillus rhamnosus 10,000 MMU CELLS/CAPSULE PO SCH ×2 (07:47→19:56)
[2020-12-07] MEDS: thiamine 100mg tablet PO SCH (07:47)
[2020-12-07] MEDS: folic acid 1mg tablet PO SCH (07:47)
[2020-12-07] MEDS: K and/or MAG REPLACEMENT MC SCH ×2 (08:26→19:59)
[2020-12-07] MEDS: ciprofloxacin lact 400MG/200ML 200 ML IV SCH (08:33)
[2020-12-07 11:00] VITALS: BP 129/74
[2020-12-07] MEDS: LORazepam 1 MG tablet PO PRN (12:44)
--- NOTE | 2020-12-07 13:44 | NUR ---
Initial: Pt admit DX acute pancreatitis r/t chronic etoh, gastritis, and hematochezia s/p colonoscopy showing large internal hemorrhoid source per EMR. Pt hx chronic pancreatitis though lipase WNL and does not take pancreatic enzymes at home per EMR. Receiving thiamin, folic for etoh and PO 100% regular diet meeting needs. LBM 12/06. No nutrition intervention at this time. Will continue to monitor. Rec: 1. continue regular diet; consider low-fat diet if abdominal pain persists 2. thiamin, folic acid for etoh hx 3. bowel care per rx 4. scaled wt this admit Addendum: 12/07/20 at [address] Amended: Links added.
[2020-12-07 15:00] VITALS: BP 118/74
--- NOTE | 2020-12-07 18:15 | NUR ---
Patient in room MED 313. I have received report from BRANDEE Charles and had the opportunity to ask questions and assume patient care. [facility] is in talking with the patient as he has been medically cleared for discharge from medical.
--- NOTE | 2020-12-07 18:20 | NUR ---
Problems reprioritized. Patient report given, questions answered & plan of care reviewed with john mcdowell.
--- NOTE | 2020-12-07 18:37 | NUR ---
BRANDEE Camargo with [facility] is with the patient now.
[2020-12-07 19:00] VITALS: BP 132/88
[2020-12-07] MEDS: temazepam 15mg capsule PO PRN (19:56)
[2020-12-07] MEDS: pantoprazole 40mg Tablet.DR PO SCH (20:02)
--- NOTE | 2020-12-07 22:00 | NUR ---
Faxed labs to [facility] per [facility] [phone]
[2020-12-08] VITALS: BP 141/87
[2020-12-08] MEDS: LORazepam 1 MG tablet PO PRN (01:24)
--- NOTE | 2020-12-08 02:02 | NUR ---
Patient up in the bathroom taking off lead and trying to take out IV, he states he wants to leave he is a looser and nothing will help him. I convinced him to come back to bed and leave his IV alone, he will be going to [facility] tomorrow and will get help.
[2020-12-08] MEDS: HYDROcodone/acetaminophen 5mg/325mg tablet PO PRN ×5 (03:23→22:09)
--- NOTE | 2020-12-08 06:23 | NUR ---
Problems reprioritized. Patient report given, questions answered & plan of care reviewed with AliceRN.
[2020-12-08 07:00] VITALS: BP 129/82
[2020-12-08] MEDS: K and/or MAG REPLACEMENT MC SCH ×2 (08:00→19:13)
[2020-12-08] MEDS ORDERED: PANT40TA54 PO (08:25)
[2020-12-08] MEDS ORDERED: LACT1CAP26 PO (08:25)
[2020-12-08] MEDS ORDERED: THIA50TA10 PO (08:25)
[2020-12-08] MEDS: folic acid 1mg tablet PO SCH (08:36)
[2020-12-08] MEDS: pantoprazole 40mg Tablet.DR PO SCH ×2 (08:37→20:00)
[2020-12-08] MEDS: thiamine 100mg tablet PO SCH (08:37)
[2020-12-08] MEDS: lactobacillus rhamnosus 10,000 MMU CELLS/CAPSULE PO SCH ×2 (08:40→20:00)
[2020-12-08] MEDS: LORazepam 2 mg/ml vial IV PRN ×4 (10:58→22:09)
[2020-12-08 12:00] VITALS: BP 125/84
[2020-12-08 22:00] VITALS: BP 108/74
[2020-12-09 02:00] VITALS: BP 98/57
[2020-12-09 03:00] VITALS: BP 118/76
[2020-12-09] MEDS: LORazepam 2 mg/ml vial IV PRN ×2 (03:18→08:46)
[2020-12-09] MEDS: HYDROcodone/acetaminophen 5mg/325mg tablet PO PRN ×2 (03:19→08:45)
[2020-12-09 06:54] VITALS: BP 118/76
[2020-12-09] MEDS: pantoprazole 40mg Tablet.DR PO SCH (08:45)
[2020-12-09] MEDS: lactobacillus rhamnosus 10,000 MMU CELLS/CAPSULE PO SCH (08:45)
[2020-12-09] MEDS: thiamine 100mg tablet PO SCH (08:46)
[2020-12-09] MEDS: folic acid 1mg tablet PO SCH (08:46)
--- NOTE | 2020-12-09 10:06 | NUR ---
PHONED REPORT TO MAHAMED CHERRY AT [facility].SL DC'D WITH CATH INTACT; 2X2 DRESSING APPLIED.PATIENT'S PERSONAL CLOTHING AND ITEMS FROM [facility] RETURNED TO PATIENT, ALONG WITH HIS HOME MEDICATIONS FROM PHARMACY.DISCHARGE INSTRUCTIONS GIVEN. BOTH WRITTEN AND VERBAL GIVEN. Addendum: 12/09/20 at 1014 by Diane Simon RN Amended: Links added.
== END 2020-12-09 10:30 | DRG 254 ==
LOC: ER 07:09 → ED HOLD 20:16 → MED 3N 12-03 17:03
PROVIDERS: ADMIT Internal Medicine; ATTEND Internal Medicine
PROC: 0DBH8ZZ Excision of Cecum, Via Natural or Artificial Opening Endoscopic (ICD-10-PCS; principal; 2020-12-06)
DX: K64.8 Other hemorrhoids (principal); K85.90 Acute pancreatitis without necrosis or infection, unspecified; R45.851 Suicidal ideations; F10.20 Alcohol dependence, uncomplicated; K29.50 Unspecified chronic gastritis without bleeding; Z20.822 Contact with and (suspected) exposure to COVID-19; K52.9 Noninfective gastroenteritis and colitis, unspecified; K59.00 Constipation, unspecified; K63.5 Polyp of colon; K86.1 Other chronic pancreatitis; Z85.05 Personal history of malignant neoplasm of liver
CPT/HCPCS: 36415; 45380; 74176; 80053; 80305; 80320; 81003; 82272; 83690; 83735; 84100; 84443; 85007; 85008; 85025; 85027; 85610; 85730; 86885; 86900; 86901; 87045; 87046; 87081; 87635; 89055; 96375; 99152; 99153; 99285; A4620; C9113; C9803; G0378; J0744; J1885; J2060; J2250; J2270; J2405; J2543; J3010; J3490; J7030; J7040; Q0177

== ENCOUNTER 2021-01-15 11:46 | Emergency (ER) | payer MEDICAID ==
[~2021-01-15] VITALS: Ht 185.4 cm; Wt 90.9 kg
[~2021-01-15 11:46] MED LIST changes: -AMOX-422 PO; -DICY10CA88 PO; -HYDR-3965 PO; +LACT1CAP26 PO; -LORA-269 PO; -MINO100T PO; -ONDA4TAB6 PO; +THIA50TA10 PO
[2021-01-15] MEDS ORDERED: metoclopramide 5 mg/ml inj IV ONE (12:30)
[2021-01-15] MEDS ORDERED: normal saline 1000ML IV soln IVB ONE (12:30)
[2021-01-15] MEDS ORDERED: morphine 4 MG/ML inj SYRINge IV ONE (12:30)
[2021-01-15] MEDS ORDERED: normal saline 1000ml 1,000 ML IV ONE (12:30)
[2021-01-15 12:51] LABS: BASOPHILS % (AUTO) 1.1 % (0-1); EOSINOPHILS % (AUTO) 0.7 % (0-6); HEMATOCRIT 33.9 % (42.0-52.0); HEMOGLOBIN 10.9 g/dl (14.0-17.9); LYMPHOCYTES # (AUTO) 1.1 X10'3 (1.1-4.8); LYMPHOCYTES % (AUTO) 24.5 % (21-51); MEAN CORPUSCULAR HEMOGLOBIN 25.2 PG (27.0-31.0); MEAN CORPUSCULAR HGB CONC 32.1 g/dL (33.0-36.5); MEAN CORPUSCULAR VOLUME 78.4 FL (78-98); MEAN PLATELET VOLUME 6.2 FL (7.4-10.4); MONOCYTES # (AUTO) 0.5 X10'3 (0-0.9); MONOCYTES % (AUTO) 10.4 % (2-12); NEUTROPHILS # (AUTO) 2.8 X10'3 (1.8-7.7); NEUTROPHILS % (AUTO) 63.3 % (42-75); PLATELET COUNT 333 X10'3 (140-440); RED BLOOD COUNT 4.32 X10'6 (4.70-6.10); RED CELL DISTRIBUTION WIDTH 21.3 % (11.5-14.5); WHITE BLOOD COUNT 4.4 X10'3 (4.5-11.0)
[2021-01-15 13:13] LABS: ALANINE AMINOTRANSFERASE 24 U/L (12-78); ALBUMIN 3.5 G/DL (3.4-5.0); ALBUMIN/GLOBULIN RATIO 0.9 (1.1-1.5); ALKALINE PHOSPHATASE 79 IU/L (46-116); ANION GAP 11 (8-16); ASPARTATE AMINO TRANSFERASE 33 U/L (10-37); BILIRUBIN,TOTAL 0.3 MG/DL (0.1-1.0); BLOOD UREA NITROGEN 9 MG/DL (7-18); BUN/CREATININE RATIO 10.2 (5.4-32.0); CALCIUM 8.2 MG/DL (8.5-10.1); CHLORIDE 105 MMOL/L (99-107); CREATININE 0.88 MG/DL (0.60-1.10); GLUCOSE 92 MG/DL (70-104); LIPASE 75 U/L (73-393); POTASSIUM 4.1 MMOL/L (3.5-5.1); SODIUM 141 MMOL/L (135-145); TOTAL CARBON DIOXIDE 25.5 MMOL/L (24-32); TOTAL PROTEIN 7.6 G/DL (6.4-8.2); eGFR > 90 ML/MIN
[2021-01-15 13:18] LABS: PLATELET ESTIMATE NORMAL
[2021-01-15 13:19] LABS: ANISOCYTOSIS 3+; HYPOCHROMASIA 1+; MICROCYTOSIS 1+; POLYCHROMASIA 1+
[2021-01-15 14:01] VITALS: BP 119/85
== END 2021-01-15 14:02 | disposition home or self-care (01) ==
LOC: ER 11:47
DX: R10.10 Upper abdominal pain, unspecified (principal); F12.90 Cannabis use, unspecified, uncomplicated; Z20.822 Contact with and (suspected) exposure to COVID-19; Z72.89 Other problems related to lifestyle
CPT/HCPCS: 36415; 80053; 83690; 85008; 85025; 87635; 96374; 96375; 99284; C9803; J2270; J2765; J7030

== ENCOUNTER 2021-01-17 15:48 | Inpatient (IN) | payer MEDICAID ==
[~2021-01-17] VITALS: Ht 185.4 cm; Wt 86.4 kg
[2021-01-17 16:45] LABS: BASOPHILS # (AUTO) 0.1 X10'3 (0-0.2); BASOPHILS % (AUTO) 0.3 % (0-1); EOSINOPHILS % (AUTO) 0.2 % (0-6); HEMATOCRIT 32.9 % (42.0-52.0); HEMOGLOBIN 10.4 g/dl (14.0-17.9); LYMPHOCYTES % (AUTO) 5.2 % (21-51); MEAN CORPUSCULAR HEMOGLOBIN 24.9 PG (27.0-31.0); MEAN CORPUSCULAR HGB CONC 31.5 g/dL (33.0-36.5); MEAN CORPUSCULAR VOLUME 78.9 FL (78-98); MONOCYTES # (AUTO) 1.5 X10'3 (0-0.9); MONOCYTES % (AUTO) 8.2 % (2-12); NEUTROPHILS # (AUTO) 16.1 X10'3 (1.8-7.7); NEUTROPHILS % (AUTO) 86.1 % (42-75); PLATELET COUNT 329 X10'3 (140-440); RED BLOOD COUNT 4.17 X10'6 (4.70-6.10); RED CELL DISTRIBUTION WIDTH 21.7 % (11.5-14.5); WHITE BLOOD COUNT 18.7 X10'3 (4.5-11.0)
[2021-01-17 16:58] LABS: PARTIAL THROMBOPLASTIN TIME 29 SECONDS (22-32)
[2021-01-17 16:59] LABS: ALANINE AMINOTRANSFERASE 17 U/L (12-78); ALBUMIN 4.2 G/DL (3.4-5.0); ALKALINE PHOSPHATASE 85 IU/L (46-116); ANION GAP 21 (8-16); ASPARTATE AMINO TRANSFERASE 31 U/L (10-37); BILIRUBIN,TOTAL 0.7 MG/DL (0.1-1.0); BLOOD UREA NITROGEN 13 MG/DL (7-18); BUN/CREATININE RATIO 9.4 (5.4-32.0); CHLORIDE 100 MMOL/L (99-107); CREATININE 1.38 MG/DL (0.60-1.10); GLUCOSE 105 MG/DL (70-104); LIPASE < 50 U/L (73-393); MAGNESIUM 1.8 MG/DL (1.5-2.4); SODIUM 136 MMOL/L (135-145); TOTAL PROTEIN 8.5 G/DL (6.4-8.2); eGFR 60 ML/MIN
[2021-01-17 17:01] LABS: TOTAL CARBON DIOXIDE 14.7 MMOL/L (24-32)
[2021-01-17 17:15] LABS: ANISOCYTOSIS 3+; HYPOCHROMASIA 1+; MICROCYTOSIS 1+; PLATELET ESTIMATE NORMAL; POLYCHROMASIA 1+; SCHISTOCYTES FEW; STOMATOCYTES 1+; TEAR DROP CELLS FEW
[2021-01-17] MEDS ORDERED: normal saline 1000ML IV soln IVB ONE ×2 (18:50→20:50)
[2021-01-17] MEDS ORDERED: chlordiazePOXIDE 25mg capsule PO ONE (18:55)
[2021-01-17] MEDS ORDERED: LORazepam 1 MG tablet PO ONE (18:55)
[2021-01-17 19:22] LABS: CREATINE KINASE 435 U/L (39-308)
[2021-01-17] MEDS ORDERED: LORazepam 2 mg/ml vial IV ONE ×2 (20:15→20:50)
[2021-01-17] MEDS ORDERED: haloperidol lactate 5mg/ml inj IM ONE ×2 (20:50→21:35)
[2021-01-17] MEDS ORDERED: thiamine inj. 100 MG in normal saline 100ml IV soln 100 ML IV ONE ×2 (21:30→21:40)
[2021-01-17] MEDS ORDERED: folic acid inj. 2 MG, thiamine inj. 100 MG, MVI, adult No.4 with vit. K 10 ML in dextro... IV SCH ×4 (21:30)
[2021-01-17] MEDS ORDERED: cloNIDine 0.1 MG/24 HOUR patch (7 day patch) TD ONE (21:35)
[2021-01-17] MEDS ORDERED: folic acid 1mg/0.2ml inj IV ONE (21:38)
[2021-01-17] MEDS ORDERED: multivitamins, therapeutics tablet PO ONE (21:38)
[2021-01-17] MEDS ORDERED: HYDROcodone/acetaminophen 5mg/325mg tablet PO PRN (21:40)
[2021-01-17] MEDS ORDERED: magnesium Cl slow-release 64mg tablet PO PRN (21:40)
[2021-01-17] MEDS ORDERED: haloperidol 5mg tablet PO PRN ×2 (21:40)
[2021-01-17] MEDS ORDERED: magnesium 4gm in 100ml NS 100 ML IV PRN (21:40)
[2021-01-17] MEDS ORDERED: cloNIDine 0.1 mg tablet PO PRN (21:40)
[2021-01-17] MEDS ORDERED: haloperidol lactate 5mg/ml inj IM PRN ×5 (21:40)
[2021-01-17] MEDS ORDERED: LORazepam 1 MG tablet PO PRN ×2 (21:40)
[2021-01-17] MEDS ORDERED: LORazepam 2 mg/ml vial IV PRN ×7 (21:40)
[2021-01-17] MEDS ORDERED: loperamide 2mg capsule PO ONE (21:40)
[2021-01-17] MEDS ORDERED: dicyclomine 10 MG capsule PO PRN (21:40)
[2021-01-17] MEDS ORDERED: potassium Cl 20 mEq SR tablet PO PRN ×2 (21:40)
[2021-01-17] MEDS ORDERED: mag hydrox/Alum hydrox/simeth 30ml oral suspension PO PRN ×2 (21:40)
[2021-01-17] MEDS ORDERED: dextrose 50%-water 50ml dispensing syringe IV PRN ×3 (21:40)
[2021-01-17] MEDS ORDERED: acetaminophen 325mg tablet PO PRN ×2 (21:40)
[2021-01-17] MEDS ORDERED: ondansetron/PF 4mg/2ml inj IV PRN (21:40)
[2021-01-17] MEDS ORDERED: magnesium 2GM in 50ml NS 50 ML IV PRN (21:40)
[2021-01-17] MEDS ORDERED: potassium Cl 40MEQ/1/2NS 520ml 520 ML IV PRN ×2 (21:40)
[2021-01-17] MEDS ORDERED: thiamine 100mg/ml 2ml inj. IV ONE ×3 (21:40)
[2021-01-17 22:12] LABS: ABG BASE EXCESS -6.2 mmol/L (-2.0-2.0); ABG HCO3 17.7 mmol/L (22.0-26.0); ABG OXYGEN SATURATION 95.7 % (94-97); ABG PCO2 (T) 29.8 mmHg (35.0-48.0); ABG PO2 (T) 89.7 mmHg (75.0-100.0); ALLEN'S TEST POSITIVE; FMetHb 0.2 % (0.0-1.5); FO2Hb 95.5 % (94-97); TOTAL HEMOGLOBIN 10.4 G/dl (14.0-18.0)
[2021-01-18 01:05] LABS: CLARITY,URINE SLIGHTLY CLOUDY (Clear); COLOR,URINE YELLOW (Yellow); GLUCOSE, URINE NEGATIVE (Neg); KETONES,URINE >=80 mg/dl (Neg); LEUKOCYTE ESTERASE ,URINE NEGATIVE (Neg); NITRITES, URINE NEGATIVE (Neg); OCCULT BLOOD,URINE NEGATIVE (Neg); PROTEIN,URINE 30 mg/dl (Neg); UROBILINOGEN,URINE 0.2 E.U/dL (0.2-1.0)
[2021-01-18 01:20] LABS: URINE AMPHETAMINE SCREEN POSITIVE (Neg); URINE BARBITUATE SCREEN NEGATIVE (Neg); URINE BENZODIAZEPINES SCREEN NEGATIVE (Neg); URINE CANNABINOID SCREEN NEGATIVE (Neg); URINE COCAINE SCREEN NEGATIVE (Neg); URINE METHADONE SCREEN NEGATIVE (Neg); URINE OPIATE SCREEN NEGATIVE (Neg); URINE PHENCYCLIDINE SCREEN NEGATIVE (Neg)
[2021-01-18 01:27] LABS: UA COLLECTION TYPE FOLEY CATH
[2021-01-18 01:28] LABS: BACTERIA,URINE NONE SEEN /HPF (Neg); MUCUS STRANDS MODERATE /LPF (Neg); RBC,URINE NONE SEEN /HPF (0-2); SQUAMOUS EPITHELIAL CELL,UR NONE SEEN /LPF (FEW); WBC,URINE NONE SEEN /HPF (0-4)
[2021-01-18 02:50] VITALS: BP 118/47
--- NOTE | 2021-01-18 02:50 | NUR ---
Arrived to 4010b via michi, drowsy but alert, oriented to room , but pt soon back to sleep. Not able to get any social information out of him will try later.
[2021-01-18] MEDS: HYDROcodone/acetaminophen 10/325mg tab PO PRN ×5 (04:22→22:46)
[2021-01-18] MEDS: LORazepam 2 mg/ml vial IV PRN ×3 (04:24→09:30)
[2021-01-18 06:00] VITALS: BP 116/70
[2021-01-18 06:00] LABS: BASOPHILS % (AUTO) 0.3 % (0-1); EOSINOPHILS # (AUTO) 0.1 X10'3 (0-0.9); EOSINOPHILS % (AUTO) 0.5 % (0-6); HEMATOCRIT 33.7 % (42.0-52.0); HEMOGLOBIN 10.7 g/dl (14.0-17.9); LYMPHOCYTES # (AUTO) 1.2 X10'3 (1.1-4.8); LYMPHOCYTES % (AUTO) 12.2 % (21-51); MEAN CORPUSCULAR HEMOGLOBIN 25.3 PG (27.0-31.0); MEAN CORPUSCULAR HGB CONC 31.7 g/dL (33.0-36.5); MEAN CORPUSCULAR VOLUME 79.8 FL (78-98); MONOCYTES # (AUTO) 0.9 X10'3 (0-0.9); MONOCYTES % (AUTO) 9.7 % (2-12); NEUTROPHILS # (AUTO) 7.4 X10'3 (1.8-7.7); NEUTROPHILS % (AUTO) 77.3 % (42-75); PLATELET COUNT 318 X10'3 (140-440); RED BLOOD COUNT 4.23 X10'6 (4.70-6.10); RED CELL DISTRIBUTION WIDTH 21.7 % (11.5-14.5); WHITE BLOOD COUNT 9.5 X10'3 (4.5-11.0)
--- NOTE | 2021-01-18 06:10 | NUR ---
received report from john tristan
--- NOTE | 2021-01-18 06:37 | NUR ---
Report to Mora IRVIN.
[2021-01-18 06:42] LABS: ALANINE AMINOTRANSFERASE 14 U/L (12-78); ALBUMIN 3.8 G/DL (3.4-5.0); ALBUMIN/GLOBULIN RATIO 0.9 (1.1-1.5); ALKALINE PHOSPHATASE 77 IU/L (46-116); AMYLASE 41 U/L (25-115); ANION GAP 11 (8-16); ASPARTATE AMINO TRANSFERASE 43 U/L (10-37); BILIRUBIN,TOTAL 0.6 MG/DL (0.1-1.0); BLOOD UREA NITROGEN 13 MG/DL (7-18); BUN/CREATININE RATIO 13.8 (5.4-32.0); CALCIUM 8.4 MG/DL (8.5-10.1); CHLORIDE 102 MMOL/L (99-107); CREATININE 0.94 MG/DL (0.60-1.10); FERRITIN 29 NG/ML (26-388); GLUCOSE 101 MG/DL (70-104); LIPASE 67 U/L (73-393); MAGNESIUM 1.9 MG/DL (1.5-2.4); PHOSPHORUS 3.6 MG/DL (2.3-4.5); POTASSIUM 3.5 MMOL/L (3.5-5.1); SODIUM 138 MMOL/L (135-145); TOTAL CARBON DIOXIDE 24.6 MMOL/L (24-32); eGFR > 90 ML/MIN
[2021-01-18 06:51] LABS: % IRON SATURATION 16 % (11-46); IRON 71 UG/DL (53-167); TOTAL IRON BINDING CAPACITY 449 UG/DL (259-388)
[2021-01-18] MEDS: thiamine 100mg tablet PO SCH (07:11)
[2021-01-18] MEDS: multivitamins, therapeutics tablet PO SCH (07:12)
[2021-01-18] MEDS: folic acid 1mg tablet PO SCH (07:12)
[2021-01-18] MEDS: enoxaparin 40mg/0.4ml syringe SUBCUT SCH (07:13)
[2021-01-18] MEDS: pantoprazole 40 MG vial IV SCH (07:19)
--- NOTE | 2021-01-18 07:19 | NUR ---
SCANNER ON COMPUTER DID NOT SCAN ALL MEDS INTO [place], CHECKED ALL MEDS PRIOR TO ADMIN
[2021-01-18] MEDS: K and/or MAG REPLACEMENT MC SCH ×2 (07:21→20:00)
[2021-01-18] MEDS ORDERED: GABA600T13 PO (07:41)
[2021-01-18] MEDS ORDERED: PRAZ1CAP5 PO (07:41)
[2021-01-18] MEDS ORDERED: PANT-47 PO (07:41)
[2021-01-18] MEDS ORDERED: LAMO25TA5 PO (07:41)
[2021-01-18] MEDS ORDERED: QUET400T13 PO (07:41)
[2021-01-18] MEDS ORDERED: folic acid inj. 2 MG, thiamine inj. 100 MG, MVI, adult No.4 with vit. K 10 ML in dextro... IV SCH ×4 (08:00)
--- NOTE | 2021-01-18 10:00 | NUR ---
pt is uncooperative at this time to obtain vs, continue to educate and to monitor
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
--- NOTE | 2021-01-18 10:19 | NUR ---
pt is pacing in front of nursing station, telling us that we are not helping him, and not making sense about saying that the nurses in the ed department were calling him names, then pt says that he will be stuck with a huge hospital bill, and then telling us that someone wants to shoot him, currently he has a flight of ideas that do not connect to one another, pt is becomes agitated, aware, pt tells nursing staff that he is willing to wait for social director at this time but after that he would like to leave, continue to monitor
[2021-01-18] MEDS: haloperidol 5mg tablet PO PRN ×2 (11:08→15:46)
[2021-01-18 13:09] LABS: ANISOCYTOSIS 3+; PLATELET ESTIMATE NORMAL
[2021-01-18 13:10] LABS: MICROCYTOSIS 1+
[2021-01-18 13:11] LABS: HYPOCHROMASIA 1+; POLYCHROMASIA FEW; SCHISTOCYTES FEW
[2021-01-18 13:12] LABS: STOMATOCYTES 1+
[2021-01-18 18:00] VITALS: BP 141/92
--- NOTE | 2021-01-18 18:32 | NUR ---
gave report to john shah
[2021-01-18] MEDS: prazosin 1mg capsule PO SCH (21:00)
[2021-01-18] MEDS: haloperidol 5mg tablet PO SCH (21:15)
[2021-01-18] MEDS: quetiapine 100mg tablet PO SCH (21:15)
[2021-01-18] MEDS: gabapentin 300mg capsule PO SCH (21:17)
--- NOTE | 2021-01-18 21:21 | NUR ---
Held prazosin. Sys BP was 113. Pharm note said to hold if <110. Too close to give safely.
[2021-01-18 22:00] VITALS: BP 106/53
[2021-01-19] MEDS: HYDROcodone/acetaminophen 10/325mg tab PO PRN ×4 (05:38→20:44)
[2021-01-19 06:00] VITALS: BP 100/59
--- NOTE | 2021-01-19 06:17 | NUR ---
received report from john shah
[2021-01-19] MEDS: pantoprazole 40 MG vial IV SCH (07:33)
[2021-01-19] MEDS: thiamine 100mg tablet PO SCH (07:35)
[2021-01-19] MEDS: multivitamins, therapeutics tablet PO SCH (07:35)
[2021-01-19] MEDS: gabapentin 300mg capsule PO SCH ×3 (07:36→20:44)
[2021-01-19] MEDS: pantoprazole 40mg Tablet.DR PO SCH (07:36)
[2021-01-19] MEDS: lamoTRIgine 25mg tablet PO SCH (07:36)
[2021-01-19] MEDS: haloperidol 5mg tablet PO SCH ×3 (07:37→20:44)
[2021-01-19] MEDS: folic acid 1mg tablet PO SCH (07:37)
[2021-01-19] MEDS: enoxaparin 40mg/0.4ml syringe SUBCUT SCH (07:38)
[2021-01-19] MEDS: K and/or MAG REPLACEMENT MC SCH ×2 (07:41→20:00)
[2021-01-19] MEDS: magnesium hydroxide 30ml (MOM) UD suspension PO PRN (09:30)
[2021-01-19 10:00] VITALS: BP 100/62
[2021-01-19 10:35] LABS: BASOPHILS % (AUTO) 0.5 % (0-1); EOSINOPHILS # (AUTO) 0.1 X10'3 (0-0.9); EOSINOPHILS % (AUTO) 2.1 % (0-6); HEMATOCRIT 31.4 % (42.0-52.0); LYMPHOCYTES # (AUTO) 1.4 X10'3 (1.1-4.8); LYMPHOCYTES % (AUTO) 29.4 % (21-51); MEAN CORPUSCULAR HEMOGLOBIN 25.8 PG (27.0-31.0); MEAN CORPUSCULAR HGB CONC 31.8 g/dL (33.0-36.5); MEAN CORPUSCULAR VOLUME 80.9 FL (78-98); MEAN PLATELET VOLUME 7.1 FL (7.4-10.4); MONOCYTES # (AUTO) 0.6 X10'3 (0-0.9); MONOCYTES % (AUTO) 12.1 % (2-12); NEUTROPHILS # (AUTO) 2.6 X10'3 (1.8-7.7); NEUTROPHILS % (AUTO) 55.9 % (42-75); PLATELET COUNT 306 X10'3 (140-440); RED BLOOD COUNT 3.88 X10'6 (4.70-6.10); RED CELL DISTRIBUTION WIDTH 21.9 % (11.5-14.5); WHITE BLOOD COUNT 4.7 X10'3 (4.5-11.0)
[2021-01-19 10:49] LABS: ALANINE AMINOTRANSFERASE 13 U/L (12-78); ALBUMIN 3.4 G/DL (3.4-5.0); ALBUMIN/GLOBULIN RATIO 0.8 (1.1-1.5); ALKALINE PHOSPHATASE 74 IU/L (46-116); AMYLASE 37 U/L (25-115); ANION GAP 9 (8-16); ASPARTATE AMINO TRANSFERASE 29 U/L (10-37); BILIRUBIN,TOTAL 0.2 MG/DL (0.1-1.0); BLOOD UREA NITROGEN 14 MG/DL (7-18); BUN/CREATININE RATIO 15.1 (5.4-32.0); CALCIUM 8.5 MG/DL (8.5-10.1); CHLORIDE 104 MMOL/L (99-107); CREATININE 0.93 MG/DL (0.60-1.10); GLUCOSE 100 MG/DL (70-104); LIPASE 62 U/L (73-393); PHOSPHORUS 4.9 MG/DL (2.3-4.5); POTASSIUM 3.9 MMOL/L (3.5-5.1); SODIUM 141 MMOL/L (135-145); TOTAL CARBON DIOXIDE 28.2 MMOL/L (24-32); TOTAL PROTEIN 7.5 G/DL (6.4-8.2); eGFR > 90 ML/MIN
[2021-01-19] MEDS ORDERED: bisacodyl 10mg suppository rectal RC PRN (14:25)
[2021-01-19] MEDS: haloperidol 5mg tablet PO PRN (16:15)
[2021-01-19] MEDS: cyanocobalamin 500mcg tablet PO SCH (16:15)
[2021-01-19 18:00] VITALS: BP 111/67
--- NOTE | 2021-01-19 18:24 | NUR ---
gave report to john osman
--- NOTE | 2021-01-19 18:30 | NUR ---
Patient in room ORTHO 4010. I have received report from Mora IRVIN and had the opportunity to ask questions and assume patient care.
[2021-01-19] MEDS: prazosin 1mg capsule PO SCH (20:42)
[2021-01-19 20:43] VITALS: BP 109/63
[2021-01-19] MEDS: quetiapine 100mg tablet PO SCH (20:44)
[2021-01-19] MEDS ORDERED: LORazepam 1 MG tablet PO PRN ×2 (21:40)
[2021-01-19] MEDS ORDERED: LORazepam 2 mg/ml vial IV PRN ×2 (21:40)
[2021-01-19 22:00] VITALS: BP 107/69
[2021-01-20 06:00] VITALS: BP 105/62
--- NOTE | 2021-01-20 06:30 | NUR ---
Problems reprioritized. Patient report given, questions answered & plan of care reviewed with Jonna IRVIN.
--- NOTE | 2021-01-20 06:43 | NUR ---
Patient in room ORTHO 4010. I have received report from Angi Patel and had the opportunity to ask questions and assume patient care.
[2021-01-20 07:56] LABS: BASOPHILS % (AUTO) 0.8 % (0-1); EOSINOPHILS # (AUTO) 0.1 X10'3 (0-0.9); EOSINOPHILS % (AUTO) 2.3 % (0-6); HEMATOCRIT 35.3 % (42.0-52.0); HEMOGLOBIN 11.2 g/dl (14.0-17.9); LYMPHOCYTES # (AUTO) 1.5 X10'3 (1.1-4.8); LYMPHOCYTES % (AUTO) 27.2 % (21-51); MEAN CORPUSCULAR HEMOGLOBIN 25.9 PG (27.0-31.0); MEAN CORPUSCULAR HGB CONC 31.7 g/dL (33.0-36.5); MEAN CORPUSCULAR VOLUME 81.8 FL (78-98); MEAN PLATELET VOLUME 6.9 FL (7.4-10.4); MONOCYTES # (AUTO) 0.6 X10'3 (0-0.9); MONOCYTES % (AUTO) 11.2 % (2-12); NEUTROPHILS # (AUTO) 3.2 X10'3 (1.8-7.7); NEUTROPHILS % (AUTO) 58.5 % (42-75); PLATELET COUNT 381 X10'3 (140-440); RED BLOOD COUNT 4.31 X10'6 (4.70-6.10); RED CELL DISTRIBUTION WIDTH 22.2 % (11.5-14.5); WHITE BLOOD COUNT 5.4 X10'3 (4.5-11.0)
[2021-01-20] MEDS: haloperidol 5mg tablet PO SCH (07:56)
[2021-01-20] MEDS: thiamine 100mg tablet PO SCH (07:56)
[2021-01-20] MEDS: gabapentin 300mg capsule PO SCH ×3 (07:57→19:41)
[2021-01-20] MEDS: folic acid 1mg tablet PO SCH (07:57)
[2021-01-20] MEDS: magnesium hydroxide 30ml (MOM) UD suspension PO PRN (07:57)
[2021-01-20] MEDS: multivitamins, therapeutics tablet PO SCH (07:57)
[2021-01-20] MEDS: HYDROcodone/acetaminophen 10/325mg tab PO PRN ×2 (07:58→12:34)
[2021-01-20] MEDS: enoxaparin 40mg/0.4ml syringe SUBCUT SCH (07:58)
[2021-01-20] MEDS: pantoprazole 40mg Tablet.DR PO SCH (08:00)
[2021-01-20] MEDS: lamoTRIgine 25mg tablet PO SCH (08:00)
[2021-01-20] MEDS: K and/or MAG REPLACEMENT MC SCH ×2 (08:00→20:00)
[2021-01-20] MEDS: cyanocobalamin 500mcg tablet PO SCH (08:04)
[2021-01-20 08:11] LABS: ALANINE AMINOTRANSFERASE 20 U/L (12-78); ALBUMIN/GLOBULIN RATIO 0.9 (1.1-1.5); ALKALINE PHOSPHATASE 90 IU/L (46-116); AMYLASE 43 U/L (25-115); ANION GAP 9 (8-16); ASPARTATE AMINO TRANSFERASE 36 U/L (10-37); BILIRUBIN,TOTAL 0.2 MG/DL (0.1-1.0); BLOOD UREA NITROGEN 14 MG/DL (7-18); BUN/CREATININE RATIO 15.1 (5.4-32.0); CHLORIDE 103 MMOL/L (99-107); CREATININE 0.93 MG/DL (0.60-1.10); GLUCOSE 96 MG/DL (70-104); LIPASE 68 U/L (73-393); PHOSPHORUS 4.5 MG/DL (2.3-4.5); SODIUM 139 MMOL/L (135-145); TOTAL CARBON DIOXIDE 26.6 MMOL/L (24-32); TOTAL PROTEIN 8.6 G/DL (6.4-8.2); eGFR > 90 ML/MIN
[2021-01-20 10:00] VITALS: BP 105/74
[2021-01-20 16:26] LABS: ANISOCYTOSIS 3+; HYPOCHROMASIA 1+; PLATELET ESTIMATE NORMAL; POLYCHROMASIA 1+
[2021-01-20 16:27] LABS: TEAR DROP CELLS FEW
[2021-01-20 18:00] VITALS: BP 109/68
--- NOTE | 2021-01-20 18:12 | NUR ---
Problems reprioritized. Patient report given, questions answered & plan of care reviewed with Katherine IRVIN.
[2021-01-20] MEDS: quetiapine 100mg tablet PO SCH (19:40)
[2021-01-20] MEDS: prazosin 1mg capsule PO SCH (21:00)
[2021-01-20 22:00] VITALS: BP 111/66
[2021-01-21] MEDS: HYDROcodone/acetaminophen 10/325mg tab PO PRN ×2 (00:47→08:31)
[2021-01-21 06:00] VITALS: BP 108/60
--- NOTE | 2021-01-21 06:25 | NUR ---
Patient in room ORTHO 4010. I have received report from mickey lopez and had the opportunity to ask questions and assume patient care.
[2021-01-21 06:40] LABS: BASOPHILS % (AUTO) 0.7 % (0-1); EOSINOPHILS # (AUTO) 0.1 X10'3 (0-0.9); EOSINOPHILS % (AUTO) 2.3 % (0-6); HEMATOCRIT 32.3 % (42.0-52.0); HEMOGLOBIN 10.5 g/dl (14.0-17.9); LYMPHOCYTES # (AUTO) 1.4 X10'3 (1.1-4.8); MEAN CORPUSCULAR HEMOGLOBIN 26.2 PG (27.0-31.0); MEAN CORPUSCULAR HGB CONC 32.5 g/dL (33.0-36.5); MEAN CORPUSCULAR VOLUME 80.8 FL (78-98); MEAN PLATELET VOLUME 6.8 FL (7.4-10.4); MONOCYTES # (AUTO) 0.7 X10'3 (0-0.9); MONOCYTES % (AUTO) 13.4 % (2-12); NEUTROPHILS # (AUTO) 2.7 X10'3 (1.8-7.7); NEUTROPHILS % (AUTO) 55.6 % (42-75); PLATELET COUNT 362 X10'3 (140-440); RED CELL DISTRIBUTION WIDTH 23.1 % (11.5-14.5); WHITE BLOOD COUNT 4.9 X10'3 (4.5-11.0)
[2021-01-21 06:57] LABS: ALANINE AMINOTRANSFERASE 17 U/L (12-78); ALBUMIN 3.7 G/DL (3.4-5.0); ALBUMIN/GLOBULIN RATIO 0.9 (1.1-1.5); ALKALINE PHOSPHATASE 84 IU/L (46-116); AMYLASE 44 U/L (25-115); ANION GAP 9 (8-16); ASPARTATE AMINO TRANSFERASE 26 U/L (10-37); BILIRUBIN,TOTAL 0.2 MG/DL (0.1-1.0); BLOOD UREA NITROGEN 15 MG/DL (7-18); BUN/CREATININE RATIO 17.2 (5.4-32.0); CALCIUM 8.7 MG/DL (8.5-10.1); CHLORIDE 104 MMOL/L (99-107); CREATININE 0.87 MG/DL (0.60-1.10); GLUCOSE 103 MG/DL (70-104); LIPASE 62 U/L (73-393); MAGNESIUM 2.2 MG/DL (1.5-2.4); POTASSIUM 4.1 MMOL/L (3.5-5.1); SODIUM 141 MMOL/L (135-145); TOTAL CARBON DIOXIDE 28.1 MMOL/L (24-32); eGFR > 90 ML/MIN
[2021-01-21] MEDS: K and/or MAG REPLACEMENT MC SCH (08:00)
[2021-01-21] MEDS: thiamine 100mg tablet PO SCH (08:29)
[2021-01-21] MEDS: lamoTRIgine 25mg tablet PO SCH (08:30)
[2021-01-21] MEDS: pantoprazole 40mg Tablet.DR PO SCH (08:30)
[2021-01-21] MEDS: cyanocobalamin 500mcg tablet PO SCH (08:30)
[2021-01-21] MEDS: folic acid 1mg tablet PO SCH (08:30)
[2021-01-21] MEDS: multivitamins, therapeutics tablet PO SCH (08:30)
[2021-01-21] MEDS: gabapentin 300mg capsule PO SCH (08:31)
[2021-01-21] MEDS: enoxaparin 40mg/0.4ml syringe SUBCUT SCH (08:33)
[2021-01-21 10:00] VITALS: BP 116/83
[2021-01-21] MEDS ORDERED: thiamine tablet PO (10:11)
[2021-01-21] MEDS ORDERED: folic acid tablet PO (10:11)
[2021-01-21] MEDS ORDERED: MULT-25 PO (10:11)
[2021-01-21] MEDS ORDERED: CYAN500T71 PO (10:11)
--- NOTE | 2021-01-21 10:45 | NUR ---
Pt discharged [facility] at 1040. belongings sent with patient. pt was given bus token by case management. Iv removed tip intact, no complications. Pt discharged in stable condition.
[2021-01-21] MEDS ORDERED: LORazepam 1 MG tablet PO PRN ×2 (21:40)
[2021-01-21] MEDS ORDERED: LORazepam 2 mg/ml vial IV PRN ×2 (21:40)
== END 2021-01-21 10:40 | disposition home or self-care (01) | DRG 775 ==
LOC: ER 15:49 → ED HOLD 21:36 → ORTHO 4S 01-18 02:50
PROVIDERS: ADMIT Internal Medicine; ATTEND Internal Medicine
DX: F10.231 Alcohol dependence with withdrawal delirium (principal); F25.9 Schizoaffective disorder, unspecified; R45.851 Suicidal ideations; I10 Essential (primary) hypertension; Z60.2 Problems related to living alone; D64.9 Anemia, unspecified; E53.8 Deficiency of other specified B group vitamins; F12.90 Cannabis use, unspecified, uncomplicated; K59.00 Constipation, unspecified; Z82.49 Family history of ischemic heart disease and other diseases of the circulatory system; Z80.1 Family history of malignant neoplasm of trachea, bronchus and lung; Z80.42 Family history of malignant neoplasm of prostate
CPT/HCPCS: 36415; 36600; 71045; 74176; 80053; 80305; 80320; 81001; 82150; 82550; 82607; 82728; 82803; 82948; 83540; 83550; 83605; 83690; 83735; 84100; 84145; 85008; 85018; 85025; 85610; 85730; 87040; 87081; 96361; 96372; 96374; 99285; C9113; G0378; J1630; J1650; J2060; J3411; J3490; J7030

== ENCOUNTER 2021-02-04 16:10 | Emergency (ER) | payer MEDICAID ==
[~2021-02-04] VITALS: Ht 185.4 cm; Wt 89.1 kg
[~2021-02-04 16:10] MED LIST changes: +CYAN500T71 PO; +GABA600T13 PO; -LACT1CAP26 PO; +LAMO25TA5 PO; +MULT-25 PO; +PANT-47 PO; -PANT40TA54 PO; +PRAZ1CAP5 PO; +QUET400T13 PO; -THIA50TA10 PO; +folic acid tablet PO; +thiamine tablet PO
[2021-02-04 16:47] LABS: EOSINOPHILS % (AUTO) 0.6 % (0-6); HEMATOCRIT 39.7 % (42.0-52.0); HEMOGLOBIN 12.5 g/dl (14.0-17.9); LYMPHOCYTES # (AUTO) 1.6 X10'3 (1.1-4.8); LYMPHOCYTES % (AUTO) 30.9 % (21-51); MEAN CORPUSCULAR HEMOGLOBIN 25.2 PG (27.0-31.0); MEAN CORPUSCULAR HGB CONC 31.5 g/dL (33.0-36.5); MEAN PLATELET VOLUME 6.4 FL (7.4-10.4); MONOCYTES # (AUTO) 0.5 X10'3 (0-0.9); MONOCYTES % (AUTO) 8.9 % (2-12); NEUTROPHILS % (AUTO) 58.6 % (42-75); PLATELET COUNT 551 X10'3 (140-440); RED BLOOD COUNT 4.96 X10'6 (4.70-6.10); WHITE BLOOD COUNT 5.1 X10'3 (4.5-11.0)
[2021-02-04 16:56] LABS: ALANINE AMINOTRANSFERASE 20 U/L (12-78); ALBUMIN 4.1 G/DL (3.4-5.0); ALBUMIN/GLOBULIN RATIO 0.8 (1.1-1.5); ALKALINE PHOSPHATASE 97 IU/L (46-116); ANION GAP 19 (8-16); ASPARTATE AMINO TRANSFERASE 48 U/L (10-37); BILIRUBIN,TOTAL 0.3 MG/DL (0.1-1.0); BLOOD UREA NITROGEN 7 MG/DL (7-18); BUN/CREATININE RATIO 6.7 (5.4-32.0); CALCIUM 8.4 MG/DL (8.5-10.1); CHLORIDE 103 MMOL/L (99-107); CREATININE 1.05 MG/DL (0.60-1.10); GLUCOSE 111 MG/DL (70-104); LIPASE 110 U/L (73-393); POTASSIUM 3.9 MMOL/L (3.5-5.1); SODIUM 145 MMOL/L (135-145); TOTAL CARBON DIOXIDE 23.4 MMOL/L (24-32); eGFR 82 ML/MIN
[2021-02-04 17:00] LABS: HYPOCHROMASIA 1+; PLATELET ESTIMATE INCREASED; POLYCHROMASIA FEW
[2021-02-04 17:01] LABS: ANISOCYTOSIS 3+; ELLIPTOCYTES FEW
[2021-02-04] MEDS ORDERED: normal saline 1000ML IV soln IVB ONE (19:35)
[2021-02-04] MEDS ORDERED: diphenhydrAMINE 50 mg/ml inj IV ONE (19:35)
[2021-02-04] MEDS ORDERED: metoclopramide 5 mg/ml inj IV ONE (19:35)
[2021-02-04] MEDS ORDERED: LORazepam 2 mg/ml vial IV ONE (19:40)
[2021-02-04] MEDS ORDERED: ONDA4TAB12 PO (21:16)
[2021-02-04] MEDS ORDERED: DICY10CA88 PO (21:16)
[2021-02-04 21:38] VITALS: BP 151/98
== END 2021-02-04 21:39 | disposition home or self-care (01) ==
LOC: ER 16:10
DX: R10.11 Right upper quadrant pain (principal); R11.2 Nausea with vomiting, unspecified; F12.90 Cannabis use, unspecified, uncomplicated; Z72.89 Other problems related to lifestyle; Z60.2 Problems related to living alone; Z79.899 Other long term (current) drug therapy
CPT/HCPCS: 36415; 80053; 83690; 85008; 85025; 96361; 96374; 96375; 99284; J1200; J2060; J2765; J7030